=== PATIENT | male | born 1960 | race Caucasian/White ===

== ENCOUNTER → 2017-12-03 09:01 | Outpatient (CLI) | payer OTHER, SELFPAY ==
--- NOTE | 2017-12-03 09:05 | RAD_ITS ---
STUDY: X-RAY - LEFT FOOT CLINICAL: Male, 57 years old. Heel pain. TECHNIQUE: 3 view(s) of the foot. COMPARISON: None. FINDINGS: There is an enthesophyte involving the posterior superior calcaneus at the site of insertion of the Achilles tendon. There is a plantar calcaneal spur. Normal talus and remaining tarsal bones. Normal visualized subtalar, talonavicular, calcaneocuboid, tarsal and tarsometatarsal articulations. There is minor lateral periarticular spurring at the head of the first metatarsal. Normal second through fourth metatarsi. Mild degenerative cortical irregularity of the head of the fifth metatarsal, as well as small rounded degenerative periarticular calcifications of the fifth metatarsophalangeal joint. Normal metatarsophalangeal joint of the great toe. Normal tibial and fibular sesamoid bones. Normal interphalangeal joint of the great toe. Mild degenerative subcortical sclerosis at the base of the first proximal phalanx. Normal distal phalanx of the great toe. Normal second through fifth metatarsophalangeal joints. Normal interphalangeal joints and phalanges of the lesser toes. The soft tissue structures are unremarkable. There is no demonstrated osseous destructive lesion or fracture. RAD/Foot min 3 Views IMPRESSION: Degenerative changes of the left foot as noted. Electronically Signed: Jass Gomez MD at 19:51 EDT , Service support ,
== END ==
PROVIDERS: Family Provider Internal Medicine; PCP Internal Medicine; Visit Provider Internal Medicine
DX: M72.2 Plantar fascial fibromatosis (principal)
CPT/HCPCS: 73630

== ENCOUNTER → 2018-09-01 12:37 | Outpatient (CLI) | payer SELFPAY ==
[2015-08-22 16:21] VITALS: BMI 36.3
--- NOTE | 2018-07-15 16:09 | NURSING ---
PT DID NOT COME FOR HIS APPOINTMENT.
--- NOTE | 2018-09-01 12:44 | CT_ITS ---
STUDY: CT CHEST WITHOUT CONTRAST REASON FOR EXAM: Male, 58 years old. Elevated cholesterol RADIATION DOSAGE (If Supplied By Facility): CTDIvol = ( 12.19 ) mGy, DLP = ( 219.42 ) mGycm TECHNIQUE: Transaxial imaging was performed without the administration of intravenous contrast material. Individualized dose optimization techniques were used for this CT. COMPARISON: None. FINDINGS: TRACHEA, THYROID, ESOPHAGUS: No tracheomalacia,stricture or wall thickening. Thyroid and esophagus are normal CARDIOVASCULAR SYSTEM: The descending aorta is ectatic with a diameter of 5.3 cm. The descending thoracic aorta is normal with a diameter of 3.2 cm.. The pulmonary trunk and the left pulmonary arteries are also grossly within normal limits. The heart is not enlarged. The LAD is calcified with a Hounsfield unit of 238. The left circumflex is also heavily calcified with Hounsfield unit of 220. There are no vascular developmental anomalies. MEE AND LYMPH NODES: No hilar masses and no mediastinal, hilar, axillary or supraclavicular adenopathy LUNGS, LOW-ATTENUATION: No traction bronchiectasis, honeycombing,emphysema, lung cysts or cavitations LUNGS, HIGH ATTENUATION: A focal groundglass opacity in the right upper lobe. Early pneumonia is suspected. LUNGS, MOSAIC/CRAZY PAVING: Not evident PLEURA AND CHEST WALL: No plural effusions, pneumothoraces,rib fractures or any osteolytic/osteoblastic changes . The soft tissue chest wall including the breasts are normal UPPER ABDOMEN: Unremarkable . CT/Limited Chest CT w/CCTA IMPRESSION: Heavy calcification of the LAD (Hounsfield unit of 238) and left circumflex (Hounsfield unit of 220) I Agaston score not calculated. A focal area of groundglass opacities in the right upper lobe consistent with early pneumonia Electronically Signed: Yeison Chow MD at 3:47 EST Tel , Service support ,
[2018-09-01 13:10] VITALS: BP 119/70; PULSE 67; RESP 16; O2SAT 97; BMI 39.9
--- NOTE | 2018-09-01 17:15 | CA.SCORE ---
Calcium Scoring Date of Study:: 09/01/18 Coronary Calcium Scoring: Coronary calcium scoring. High-resolution computed tomographic imaging of the chest was performed on 09/01/2018 with particular attention paid to the coronary arteries. Images from the examination were analyzed for the presence and extent of coronary calcification using the coronary calcification quantification software. The patient tolerated the procedure well there were no complications. The results of the coronary calcification analysis are noted below. Coronary artery Left main score 321. Left anterior descending artery score 217. Left circumflex artery score 105. Right coronary artery score 289. Total Agagston score 933 The above score places the patient between the 75th and 90th percentile ranking for age-matched controls. The above is suggestive of extensive plaque burden with a high likelihood of at least one coronary stenosis more than 50% in diameter.
--- OUTSIDE RECORDS SUMMARY | 2018-12-04 03:02 | XMS RPT_ITS ---
:1960 Author Organization [facility] Care Team Providers Name Role Phone Fast DO, Goldie A Attending Unavailable Fast DO, Goldie A Referring Unavailable Fast DO, Goldie A Consulting Unavailable Fast, Goldie Attending Unavailable Fast, Goldie Referring Unavailable Fast, Goldie Primary Care Unavailable Fast, Goldei Attending Unavailable Fast, Goldie Referring Unavailable Fast, Goldie Primary Care Unavailable Zeb, [place] Attending Unavailable Fast, Goldie Referring Unavailable Fast, Goldie Primary Care Unavailable Fast, Goldie Consulting Unavailable Fast, Goldie Attending Unavailable Fast, Goldie Primary Care Unavailable PROBLEMS PROBLEMS No Problem Records FoundPROCEDURES PROCEDURES No Procedure Records FoundRESULTS RESULTS LIMITED CHEST CT Observed: 09/01/2018 Status: F Source: [place] W/CCTA 12:44 PM [facility] Imaging Services [address] [place] [address] w/CCTA MR#: [id number] Acct: [id number] Name: JONAH MAC Rep #: [id number] : 1960 M 58 From: Yeison Chow MD PCP: Goldie Kohler DO Status: REG CLI Study: Limited Chest CT w/CCTA Date of Exam: 09/01/18 Exam# [id number] Ordering Dr: Goldie Kohler DO STUDY: CT CHEST WITHOUT CONTRAST REASON FOR EXAM: Male, 58 years old. Elevated cholesterol RADIATION DOSAGE (If Supplied By Facility): CTDIvol = ( 12.19 ) mGy, DLP = ( 219.42 ) mGycm TECHNIQUE: Transaxial imaging was performed without the administration of intravenous contrast material. Individualized dose optimization techniques were used for this CT. COMPARISON: None. FINDINGS: TRACHEA, THYROID, ESOPHAGUS: No tracheomalacia,stricture or wall thickening. Thyroid and esophagus are normal CARDIOVASCULAR SYSTEM: The descending aorta is ectatic with a diameter of 5.3 cm. The descending thoracic aorta is normal with a diameter of 3.2 cm.. The pulmonary trunk and the left pulmonary arteries are also grossly within normal limits. The heart is not enlarged. The LAD is calcified with a Hounsfield unit of 238. The left circumflex is also heavily calcified with Hounsfield unit of 220. There are no vascular developmental anomalies. MEE AND LYMPH NODES: No hilar masses and no mediastinal, hilar, axillary or supraclavicular adenopathy LUNGS, LOW-ATTENUATION: No traction bronchiectasis, honeycombing,emphysema, lung cysts or cavitations LUNGS, HIGH ATTENUATION: A focal groundglass opacity in the right upper lobe. Early pneumonia is suspected. LUNGS, MOSAIC/CRAZY PAVING: Not evident PLEURA AND CHEST WALL: No plural effusions, pneumothoraces,rib fractures or any osteolytic/osteoblastic changes . The soft tissue chest wall including the breasts are normal UPPER ABDOMEN: Unremarkable . CT/Limited Chest CT w/CCTA IMPRESSION: Heavy calcification of the LAD (Hounsfield unit of 238) and left circumflex (Hounsfield unit of 220) I Agaston score not calculated. A focal area of groundglass opacities in the right upper lobe consistent with early pneumonia Electronically Signed: Yeison Chow MD at 3:47 EST Tel , Service support , CC: Goldie Kohler DO Nurse Ldr: Signed FOOT MIN 3 VIEWS Observed: 12/03/2017 Status: F Source: [place] 9:05 AM [facility] Imaging Services [address] [place] [address] Foot min 3 Views MR#: [id number] Acct: [id number] Name: JONAH MAC Rep #: [id number] : 1960 M 57 From: Addy Gomez MD PCP: Goldie Kohler DO Status: REG CLI Study: Foot min 3 Views Date of Exam: 12/03/17 Exam# [id number] Ordering Dr: Goldie Kohler DO STUDY: X-RAY - LEFT FOOT CLINICAL: Male, 57 years old. Heel pain. TECHNIQUE: 3 view(s) of the foot. COMPARISON: None. FINDINGS: There is an enthesophyte involving the posterior superior calcaneus at the site of insertion of the Achilles tendon. There is a plantar calcaneal spur. Normal talus and remaining tarsal bones. Normal visualized subtalar, talonavicular, calcaneocuboid, tarsal and tarsometatarsal articulations. There is minor lateral periarticular spurring at the head of the first metatarsal. Normal second through fourth metatarsi. Mild degenerative cortical irregularity of the head of the fifth metatarsal, as well as small rounded degenerative periarticular calcifications of the fifth metatarsophalangeal joint. Normal metatarsophalangeal joint of the great toe. Normal tibial and fibular sesamoid bones. Normal interphalangeal joint of the great toe. Mild degenerative subcortical sclerosis at the base of the first proximal phalanx. Normal distal phalanx of the great toe. Normal second through fifth metatarsophalangeal joints. Normal interphalangeal joints and phalanges of the lesser toes. The soft tissue structures are unremarkable. There is no demonstrated osseous destructive lesion or fracture. RAD/Foot min 3 Views IMPRESSION: Degenerative changes of the left foot as noted. Electronically Signed: Jass Gomez MD at 19:51 EDT , Service support , CC: Goldie Kohler DO Nurse Ldr: Signed ALLERGIES ALLERGIES DATE TYPE / CODE NAME / CODE REACTION SEVERITY SOURCE 08/04/2015 Drug Penicillins Anaphylaxis Unknown [facility] Allergy/4160 /[id number] Hospital 38408(SNOMED (RXNORM) Repository CT) ENCOUNTERS ENCOUNTERS ADMIT/DISCHARGE ACCOUNT ADMITTING ENCOUNTER LOCATION SOURCE NUMBER CLASS 10/02/2018 [id number] [facility] [address] [facility] ing:[facility] Repository 09/26/2018 [id number] Ambulatory Building:[facility] Repository 09/01/2018 [id number] Ambulatory BMSBuilding:B Greg 4 MS.CF.[facility] Repository 09/01/2018 [id number] [facility] [address] [facility] ing:CT Repository 12/03/2017 [id number] Ambulatory [place] Greg [address] [facility] ing:[facility]PRAD Repository PAYERS PAYERS ENCOUNTER GUARANTOR PAYER SUBSCRIBER SOURCE 10/02/2018 JONAH [id number] Primary JONAH KIRBYOB: Greg [address] Insurance:MEDICAL [id number] Community [address] [place] [address]Eck: (330) Number: Repository [phone] () [id number] Date:1608-49-85[address], [place] [address]GB: 10/02/2018 Secondary NOT GIVENUNK Greg Insurance:SELF PAY [facility] Number: Effective Repository Date:2018-09-26 09/26/2018 JONAH KIRBYOB: Primary JONAH KIRBYOB: [facility] Practices [id number] Box Insurance:Medical [id number] [facility]ository [facility] [address], [address]Bto: (330) Number: [place] [address]Lkv: [phone] [id number] (HP)Tel: (330) Date:3755-28-34Yvjg (HP) [phone] (WP) Name:[address], [place] [id number]: 09/26/2018 Secondary JONAH KIRBYOB: [facility] Practices Insurance:ReferralsPo [id number] Repository licy Number: [id number], Effective Date: - [place] [address]Jwd: [id number] Name:F (HP) 09/26/2018 Tertiary JONAH KIRBYOB: [facility] Practices Insurance:[place] [id number] Repository BC/BSPolicy Number: [address], [id number] [place] [address]Ehv: Date:2005-07-17 - 2022-53-78Xply (HP) Name:[address], [place] [id number]: 09/26/2018 Tertiary JONAH JAMAEDOB: [facility] Practices Insurance:[place] [id number] Repository CarePolicy Number: [address], [id number] [place] [address]Oiw: Date: - 6380-38-69Kpnn (HP) Name:[address] [address]AA: 09/26/2018 Tertiary JONAH JAMAEDOB: [facility] Practices Insurance:[facility] [id number] [facility]ository [facility] [address] [place] [address], Number: [place] [id number]: [id number] Date: - () [id number] Name:FPO [address] [place] [address]CF: 09/01/2018 JONAH [id number] Primary Insurance:[facility] JONAH JAMAEDOB: [place] [address] PACKAGE PLANPolicy [id number] Number: [facility] [address]Trx: 330 [id number] Repository [phone] (HP) Date:2018-06-20 09/01/2018 Secondary NOT GIVENUNK [place] Insurance:SELF PAY [facility] Number: Effective Repository Date:2018-09-01 09/01/2018 JONAH [id number] Primary Insurance:[facility] JONAH JAMAEDOB: [place] [address] PACKAGE PLANPolicy [id number] Number: [facility] [id number]: 330 [id number] Repository [phone] () Date:2018-06-20 09/01/2018 Secondary NOT GIVENUNK [place] Insurance:SELF PAY [facility] Number: Effective Repository Date:2018-06-20 12/03/2017 Jonah [id number] Primary Jonah KirbyOB: [place] [address] Insurance:[employer] [id number] [address]Policy Number: Hospital [id number]: [id number] Repository [phone] Date:[id number] (HP) [place] [address]AT: 12/03/2017 Secondary NOT GIVENUNK [place] Insurance:SELF PAY Community [facility] Number: Effective Repository Date:2017-12-03
== END ==
PROVIDERS: Family Provider Internal Medicine; PCP Internal Medicine; Referring Provider Internal Medicine; Visit Provider Internal Medicine
DX: E78.00 Pure hypercholesterolemia, unspecified (principal)
CPT/HCPCS: 75571; 76380

== ENCOUNTER → 2018-12-04 08:12 | Outpatient (CLI) | payer OTHER, SELFPAY ==
[2018-09-01 13:10] VITALS: BMI 39.9
--- NOTE | 2018-12-04 08:18 | CT_ITS ---
STUDY: CT CHEST WITH CONTRAST REASON FOR EXAM: Male, 58 years old. RADIATION DOSAGE (If Supplied By Facility): CTDIvol = ( 19.11 ) mGy, DLP = ( 686.61 ) mGycm TECHNIQUE: Transaxial imaging was performed following intravenous administration of Isovue 300 100CC IV. Individualized dose optimization techniques were used for this CT. COMPARISON: None. FINDINGS: The lungs are normal. The previously described opacity in the right upper lobe is no longer seen most likely represented pneumonia that has resolved. There is no demonstrated pleural abnormality. Normal heart and pericardium. Normal mediastinum. Normal hilar regions. Normal enhanced pulmonary arteries. There is aneurysmal dilation of the ascending aorta measures 4.9 cm is unchanged since the previous study. There are multi-level degenerative changes of the thoracic spine. There is no demonstrated abnormality of the visualized upper abdomen. CT/Chest WITH Contrast IMPRESSION: Resolved right upper lobe pneumonia. There is aneurysmal dilation of the ascending aorta measures 4.9 cm is unchanged since the previous study. Electronically Signed: Pearl Chavez, at 9:21 EDT Tel , Service support ,
[2018-12-04 08:30] LABS: CREATININE FINGERSTICK 1.1 mg/dL (0.70-1.30); EGFR FINGERSTICK > 60.0000 mL/min (>60)
== END ==
PROVIDERS: Family Provider Internal Medicine; PCP Internal Medicine; Referring Provider Internal Medicine; Visit Provider Internal Medicine
DX: R91.8 Other nonspecific abnormal finding of lung field (principal)
CPT/HCPCS: 71260; Q9967

== ENCOUNTER → 2019-04-20 | Outpatient (CLI) | payer SELFPAY ==
[2018-09-01 13:10] VITALS: BMI 39.9
--- NOTE | 2019-04-20 15:49 | CT_ITS ---
STUDY: CTA CHEST WITH CONTRAST REASON FOR EXAM: Male, 59 years old. Thoracic aortic aneurysm without rupture RADIATION DOSAGE (If Supplied By Facility): CTDIvol = ( 18.19 ) mGy, DLP = ( 788.40 ) mGycm TECHNIQUE: Transaxial imaging was performed following intravenous administration of 100 IV Isovue 300. Individualized dose optimization techniques were used for this CT. COMPARISON: 04 December 2018, 01 September 2018 FINDINGS: Examination is not EKG gated. Oblique short axis aortic luminal images were not provided. Therefore, both the current and prior measurement of the aorta is a mild overestimate by approximately 2-3 mm. Aortic root measures 4.8 cm. Ascending aorta measures 4.3 cm Aortic arch measures 3.2 cm. Proximal descending aorta measures 3.2 cm. Distal descending aorta measures 3 cm. All values are unchanged since 3 months prior. Ascending and aortic root are stable since August 2018 noncontrast examination. Lungs are clear. Airways are patent. Pleural surfaces are normal. Mediastinal contents are normal. There is moderate coronary artery disease. Cardiac chamber is normal in size and shape. Pericardium is normal. The liver is fatty infiltrated. There is upper abdominal intraperitoneal and retroperitoneal lipomatosis. This is a benign metabolically adverse condition associated with accelerated atherosclerosis and hyperglycemic state. No further imaging is necessary for this condition. CT/Chest WITH Contrast IMPRESSION: 1. Stable aorta with maximum diameter of 4.8 cm. 2. At least moderate coronary artery disease. 3. Intra-abdominal lipomatosis. Endocrinology referral is advised. Electronically Signed: Saimajuan david Ezio, at 16:24 EDT Tel , Service support ,
[2019-04-20 16:01] LABS: CREATININE FINGERSTICK 0.8 mg/dL (0.70-1.30)
== END | disposition home or self-care (01) ==
PROVIDERS: Family Provider Internal Medicine; PCP Internal Medicine; Referring Provider Internal Medicine; Visit Provider Internal Medicine
DX: I71.2 Thoracic aortic aneurysm, without rupture (principal)
CPT/HCPCS: 71260; Q9967

== ENCOUNTER → 2019-05-13 | Outpatient (CLI) | payer OTHER, SELFPAY ==
[2018-09-01 13:10] VITALS: BMI 39.9
--- NOTE | 2019-05-13 12:55 | ECHOD_ITS ---
Reason For Study: THORACIC AORTIC ANEURYSM Procedure This was a 2D Doppler, Color Flow transthoracic echocardiogram. Exam performed in department. Left Ventricle Normal size and thickness. The estimated ejection fraction is 65 %. Stage 1 diastolic dysfunction. No regional wall motion abnormalities noted. Right Ventricle Normal size and thickness. Normal systolic function. Atria Normal left atrium. Normal right atrium. Normal atrial septum. Mitral Valve The mitral valve is structurally normal. No prolapse or stenosis seen. Tricuspid Valve Normal tricuspid valve. Trivial tricuspid valve insufficiency. Unable to estimate RV systolic pressure due to insufficient tricuspid regurgitant envelope. Aortic Valve Trisinus/trileaflet aortic valve. Mild focal aortic valve thickening. Trivial aortic valve insufficiency. Pulmonic Valve Normal pulmonic valve. Great Vessels Moderately dilated aortic root. Normal arch. Normal inferior vena cava. Inferior vena cava collapse with sniff. Pericardium/Pleural No pericardial effusion. MMode/2D Measurements & Calculations LVIDd: 4.9 cm IVSd: 1.1 cm Ao root diam: 4.5 cm LVIDs: 3.3 cm LVPWd: 1.0 cm RVDd: 3.4 cm FS: 33.8 % LAV(MOD-bp): 62.9 ml LA A4 area: 21.6 cm2 LA dimension(2D): 3.9 cm LAV(MOD-bp) Indexed: 26.9 ml/m2 LAV(MOD-sp2): 61.4 ml LAV(MOD-sp4): 61.1 ml RA A4 area: 18.5 cm2 Time Measurements MV dec time: 0.23 sec Doppler Measurements & Calculations MV E max james: 73.5 cm/sec Lat Peak E' James: 9.1 cm/sec Med Peak E' James: 8.5 cm/sec MV A max james: 89.7 cm/sec E/E' lat: 8.0 E/E' med: 8.6 MV E/A: 0.82 Ao V2 max: 152.9 cm/sec LV V1 max: 120.6 cm/sec PA V2 max: 74.6 cm/sec Ao max P.3 mmHg LV V1 max P.8 mmHg Interpretation Summary The estimated ejection fraction is 65 %. Stage 1 diastolic dysfunction. Trivial tricuspid valve insufficiency. Unable to estimate RV systolic pressure due to insufficient tricuspid regurgitant envelope. Trivial aortic valve insufficiency. Moderately dilated aortic root at 4.5 cm There is no comparison study available. Ordering Physician: Goldie Kohler Referring Physician: Goldie Kohler Performed By: Ana Veliz, RITCHIE, RVT
== END | disposition home or self-care (01) ==
LOC: CVS 12:50
PROVIDERS: Family Provider Internal Medicine; PCP Internal Medicine; Referring Provider Internal Medicine; Visit Provider Internal Medicine
DX: I71.2 Thoracic aortic aneurysm, without rupture (principal)
CPT/HCPCS: 93306

== ENCOUNTER → 2019-10-06 09:16 | Outpatient (CLI) | payer OTHER, SELFPAY ==
[2018-09-01 13:10] VITALS: BMI 39.9
--- NOTE | 2019-10-06 09:27 | RAD_ITS ---
HISTORY: LOW BACK PAIN. HX DDD TECHNIQUE: Lumbar spine 4 views Number of images including paperwork: 4 COMPARISON: 11/21/2009 FINDINGS: VERTEBRAE: No acute fracture. VERTEBRAL ALIGNMENT: No traumatic subluxation. DISKS AND JOINTS: Mild multilevel discogenic degenerative changes, mildly increased particularly at T12-L1. Facet arthropathy. SOFT TISSUES: Unremarkable paraspinous soft tissues. RAD/L/S Spine Min 4 Views IMPRESSION: No acute abnormality. Lumbar spondylosis, mildly increased. at 0540 Reported and signed by: Elmira Goodwin MD Electronically Signed: Elmira Goodwin MD at 5:40 EST Tel , Service support ,
--- NOTE | 2019-10-06 09:27 | RAD_ITS ---
HISTORY: CHRONIC PAIN ADDITIONAL HISTORY: None provided. TECHNIQUE: Left knee 4 days Number of images including paperwork: 4 COMPARISON: 03/05/2014 FINDINGS: BONES: No acute fracture. JOINTS: No subluxation. Mild to moderate tricompartmental degenerative changes. SOFT TISSUES: No distinct foreign body. Soft tissue swelling anteriorly. RAD/Knee 4 or More Views IMPRESSION: Degenerative changes without acute osseous abnormality. Soft tissue swelling anteriorly. at 0542 Reported and signed by: Elmira Goodwin MD Electronically Signed: Elmira Goodwin MD at 5:42 EST Tel , Service support ,
== END ==
PROVIDERS: PCP Internal Medicine; Referring Provider Internal Medicine; Visit Provider Internal Medicine
DX: M54.5 Low back pain (principal); M25.562 Pain in left knee
CPT/HCPCS: 72110; 73564

== ENCOUNTER 2019-11-05 10:30 | Outpatient (RCR) | payer OTHER, SELFPAY ==
[2018-09-01 13:10] VITALS: BMI 39.9
--- NOTE | 2019-10-13 08:52 | HP.PTEVAL_ITS ---
Patient's Visit Information NITISH MAC is a 59 year old M referred to Physical Therapy by Goldie Kohler DO with a diagnosis of L knee pain, LBP. Date of Evaluation: 10/07/19 Physical Therapist: Mitch Cagle DPT - Visit Plan Frequency: 1-2x /Week Duration: 4-6 Weeks Plan: Start with light lumbar extension. Progress with LLE strengthening and core stability exercises. Once ready progress gym exercises as patient desires to get back into gym routine. - Subjective Findings: Pt. is here today for his initial evaluation with diagnosis of LBP and L knee pain. Pt. reports having OA in L knee with moderate degeneration. Pt. reports his L knee has been getting progressively worse of the past few years. Increased pain with squating, stairs, gettign up from sitting for longer periods of time. Pt. also describes having increased LBP, no raidation of symptoms. Increased pain after working, mostly sitting on heavy machinery. Pt. reports increased pain once initially rising and attempting to walke, but alleviates after increased walking. Pt. has previously gone to a chiropractor for his back, but recently has not tarun as helpful. Pt. is hopeful to reduce his symptoms in order to get back to all recreational (working out) and work activities without limitations. - Pain Lknee Pain Intensity (Out of 10): 2 Pain Intensity Range: 0, 6 Lumbar spine Pain Intensity (Out of 10): 3 Pain Intensity Range: 0, 6 - Objective POSTURE: Pt. has sway back posture with anterior pelvic tilt. Pt. has normal knee positoning bilaterally. PALPATION: Pt. has slight tenderness at long medial joint line of L knee. Pt. has tenderness along lumbar paraspinals, but minimally. No pain with palpation of either posterior LEs. NEURO: normal sensation and DTR of bilateral LEs. ROM: LUMBAR SPINE: flexion- min loss increase NW, extension mod loss- mild reduction in symptoms no better, SB nil loss NE, rotation min loss bilat NE. L knee 0-0-128deg. MMT: LLE 5/5 throughout, except hip ext 4/5, abd hip abd 4/5; core- poor+. GAIT: Pt. has slight flexed posture with gait, increased pain with initial waking, increased lateral hip translation. Pt. has incraesed valgus positoning of L knee during stance phase. STAIRS: Pt. has reciprocal pattern with use of 1 HR, mild inc rease in L knee with controlled eccentric lowering. - Special Tests L/S Slump test left side: Negative L/S Slump test right side: Negative L/S Left Straight Leg Raise: Negative L/S Right Straight Leg Raise: Negative L/S Instability PA Test: Negative L/S [place] Instability Test: Negative Lumbar Standing: Flexion - Mechanical Response: No effect Lumbar Standing: Flexion - Symptoms During Testing: Increases Lumbar Standing: Flexion - Symptoms After Testing: No worse Lumbar Standing: Extension - Mechanical Response: No effect Lumbar Standing: Extension - Symptoms During Testing: Decreases Lumbar Standing: Extension - Symptoms After Testing: No better Lumbar Standing: Right Side [place] - Mechanical Response: No effect Lumbar Standing: Right Side [place] - Symptoms During Testing: No effect Lumbar Standing: Right Side [place] - Symptoms After Testing: No effect Lumbar Standing: Left Side [place] - Mechanical Response: No effect Lumbar Standing: Left Side [place] - Symptoms During Testing: No effect Lumbar Standing: Left Side [place] - Symptoms After Testing: No effect Lumbar Lying: Flexion - Mechanical Response: No effect Lumbar Lying: Flexion - Symptoms During Testing: No effect Lumbar Lying: Flexion - Symptoms After Testing: No effect Lumbar Lying: Extension - Mechanical Response: No effect Lumbar Lying: Extension - Symptoms During Testing: Decreases Lumbar Lying: Extension - Symptoms After Testing: No better - Goals Goal 1:: LTG: pt to be I with HEP for LLE and core strengthening. Goal Time Frame: 4-6 Weeks Goal 2:: STG: Pt. to have 0-2/10 pain in L knee and lumbar spine with all walking. Goal Time Frame: 2-4 Weeks Goal 3:: LTG: Pt. to have increased LLE and core strength increased by 1/2 grade of all effected musculature. Goal Time Frame: 4-6 Weeks Goal 4:: STG: Pt. to have increased lumbar ROM by 25% in all directions without increase in symptoms. Goal Time Frame: 2-4 Weeks Goal 5:: LTG: Pt. to resume all gym exercises without increase in symptoms. Goal Time Frame: 4-6 Weeks - Rehabilitation Potential Physical Therapy Diagnosis: Pt. has signs and symptoms consistent with LBP and L knee pain. Pt. did not have radicular symptoms, but has signs of degenerative changes of both lumbar spine and L knee. Pt. did have slight positive signs with extension of lumbar spine, but would have the greatest effect with both strengthening of his core and LLE. Rehabilitation Potential: Good - Anticipated Interventions Patient/Client Instruction: Educate patient on: Condition, Plan of Care, Risk Factors, Benefits of Fitness Program For the Purpose of:: To improve decision making, To facilitate caregiver knowledge, To improve self management, To prevent re-injury, To improve ability to perform tasks related to life management, To improve tolerance to ADL's Therapeutic Exercise to Include: Strength training, Power training, Body mechanics, Postural training, Flexibilty training, Gait and locomotor training, Passive ROM, Active ROM, Dynamic Lumbar Stabilization, Daniel Exercises For the Purpose of:: To decrease pain, To increase ROM, To improve nutrient delivery to tissue, To increase oxygenation perfusion, To improve muscle performance and motor function, To improve gait and locomotor functions, To improve health of tissue, To decrease soft tissue restriction, To increase flexibility/ROM Thank you for the opportunity to evaluate your patient. For Medicare and Medicare HMO plans, please review the plan of care and approve it. It will need to be FAXED BACK to us at [phone] for Medicare purposes. For Medicare only, by signing this I certify the plan of care. Please let me know if there are questions or concerns regarding this plan of care. Physician Sign ature: Date:
--- NOTE | 2019-11-03 12:39 | HP.PTREVAL ---
Goldie Kohler, DO, It has been my pleasure to treat NITISH MAC over the last 5 visits for L knee pain, LBP. Please see the progress note below for an update on the physical therapy plan of care! Subjective: Pt. reports my back has been doing well, just a little stiff. Pt. reprots that his knee has been feeling a bit better after having stem cell injections. Pt. reports doing well at work, but still has some pain with twisting or stepping wrong on his knee Objective/Function: Pt. is doing well with lumbar extension. He is doing well with LLE strengthening as well. Pt. has good ROM of knee knee pain at ~125deg of flexion, no pain with extension. Tight HS, but improving. Pt. is walking very well. I would like him to continue with strengthening adn stability of his knee and hip to reduce valgus and twisting on his knee. Plan Plan: Pt. is doing well, but has some LLE weakness, most notably with quad and glutes (max and med). I would like to continue to focus on these muscle groups as able. Goals Goal 1:: LTG: pt to be I with HEP for LLE and core strengthening. Goal Time Frame: 4-6 Weeks Goal 2:: STG: Pt. to have 0-2/10 pain in L knee and lumbar spine with all walking. Goal Time Frame: 2-4 Weeks Goal Progress: Progressing Goal 3:: LTG: Pt. to have increased LLE and core strength increased by 1/2 grade of all effected musculature. Goal Time Frame: 4-6 Weeks Goal Progress: Progressing Goal 4:: STG: Pt. to have increased lumbar ROM by 25% in all directions without increase in symptoms. Goal Time Frame: 2-4 Weeks Goal Progress: Progressing Goal 5:: LTG: Pt. to resume all gym exercises without increase in symptoms. Goal Time Frame: 4-6 Weeks Goal Progress: Progressing Anticipated Interventions Patient/Client Instruction: Educate patient on: Condition, Plan of Care, Risk Factors, Benefits of Fitness Program For the Purpose of:: To improve decision making, To facilitate caregiver knowledge, To improve self management, To prevent re-injury, To improve ability to perform tasks related to life management, To improve tolerance to ADL's Therapeutic Exercise to Include: Strength training, Power training, Body mechanics, Postural training, Flexibilty training, Gait and locomotor training, Passive ROM, Active ROM, Dynamic Lumbar Stabilization, Daniel Exercises For the Purpose of:: To decrease pain, To increase ROM, To improve nutrient delivery to tissue, To increase oxygenation perfusion, To improve muscle performance and motor function, To improve gait and locomotor functions, To improve health of tissue, To decrease soft tissue restriction, To increase flexibility/ROM Please do not hesitate to contact me at [phone] by phone or if you have questions or concerns regarding this new plan of care! Sincerely, CACHORRO CruzT
--- NOTE | 2020-03-15 11:29 | HP.PT.NRP ---
NITISH MAC was seen in my office for initial evaluation on 10/07/19. The following Plan of Care was established for this patient: Initial Frequency: 1-2x /Week Initial Duration: 4-6 Weeks Patient/Client Instruction: Educate patient on: Condition, Plan of Care, Risk Factors, Benefits of Fitness Program For the Purpose of:: To improve decision making, To facilitate caregiver knowledge, To improve self management, To prevent re-injury, To improve ability to perform tasks related to life management, To improve tolerance to ADL's Therapeutic Exercise to Include: Strength training, Power training, Body mechanics, Postural training, Flexibilty training, Gait and locomotor training, Passive ROM, Active ROM, Dynamic Lumbar Stabilization, Daniel Exercises For the Purpose of:: To decrease pain, To increase ROM, To improve nutrient delivery to tissue, To increase oxygenation perfusion, To improve muscle performance and motor function, To improve gait and locomotor functions, To improve health of tissue, To decrease soft tissue restriction, To increase flexibility/ROM This patient was last seen in our office 11/03/19. Pertinent comments regarding their Physical therapy will appear below: Pt. has not been seen in several weeks and is appropirate from [place] at this point in time. At this point I will be discontinuing this patient from physical therapy. I would be happy to see this patient again in the future if found appropriate by the physician. Thank you! Mitch Cagle DPT
== END 2019-11-05 19:00 | disposition home or self-care (01) ==
LOC: PT 10:30
PROVIDERS: PCP Internal Medicine; Referring Provider Internal Medicine; Visit Provider Internal Medicine
DX: M54.5 Low back pain (principal); M25.562 Pain in left knee
CPT/HCPCS: 97110; 97162

== ENCOUNTER → 2019-11-11 12:23 | Outpatient (CLI) | payer OTHER, SELFPAY ==
[2018-09-01 13:10] VITALS: BMI 39.9
--- NOTE | 2019-11-11 13:09 | CT_ITS ---
STUDY: CT ABDOMEN AND PELVIS WITHOUT CONTRAST REASON FOR EXAM: Male, 59 years old. HEMATURIA, LT SIDED MID BACK PAIN X 1 YR. RADIATION DOSAGE (If Supplied By Facility): CTDIvol = ( 20.94 ) mGy, DLP = ( 1182.29 ) mGycm TECHNIQUE: Transaxial images were obtained from the dome of the diaphragm to the symphysis pubis without oral contrast, and without intravenous contrast. Sagittal and coronal images were reconstructed. Individualized dose optimization techniques were used for this CT. COMPARISON: None. FINDINGS: The visualized lung bases are unremarkable. The visualized portions of the heart are within normal limits. Normal liver. Normal gallbladder and extrahepatic biliary system. Normal spleen. Normal pancreas. Normal bilateral adrenal glands. Normal right kidney. Normal left kidney. There is an exophytic right lower pole renal cyst measuring 3 cm. Normal visualized stomach. Normal small intestine. Normal colon. The appendix is visualized and appears normal. Normal abdominal aorta. Normal inferior vena cava. Normal retroperitoneum. Normal urinary bladder. Normal visualized prostate gland. Small bilateral inguinal hernias. There are diffuse degenerative changes of the visualized lumbar spine. CT/Abdomen/Pelvis without Cont IMPRESSION: No acute process is identified. No renal stones or evidence for obstructive uropathy. Electronically Signed: Aquiles Solitario, at 15:51 EST Tel , Service support ,
== END ==
PROVIDERS: PCP Internal Medicine; Referring Provider Internal Medicine; Visit Provider Internal Medicine
DX: R31.9 Hematuria, unspecified (principal); M54.5 Low back pain
CPT/HCPCS: 74176

== ENCOUNTER → 2019-11-18 14:07 | Outpatient (CLI) | payer OTHER, SELFPAY ==
[2018-09-01 13:10] VITALS: BMI 39.9
--- NOTE | 2019-11-18 14:20 | MRI_ITS ---
STUDY: MRI LUMBAR SPINE WITHOUT CONTRAST REASON FOR EXAM: Male, 59 years old. low back pain TECHNIQUE: Standardized fat and water weighted pulse sequences were obtained in the sagittal and axial planes. COMPARISON: X-ray 10/06/2019 FINDINGS: T12-L1: Normal endplates. Normal disc height, hydration and morphology. Normal bilateral facet joints. Normal central canal and bilateral lateral recesses. Normal bilateral intervertebral neural foramina. Normal lumbar lordosis. There is no substantial scoliosis. Normal conus medullaris that terminates at the L1. Slitlike appearance of the neural foramina are suggestive of congenital spinal stenosis (short pedicles). Acute microfracture stress reaction of the pedicles of L5. L1-2: Mild bilobed disc protrusion produces mild spinal stenosis and mild bilateral neural foraminal stenosis. L2-3: Mild bilateral facet hypertrophy and ligament flavum hypertrophy. Mild bilobed disc protrusion produces mild spinal stenosis and mild bilateral neural foraminal stenosis. L3-4: Mild bilateral facet hypertrophy and ligament flavum hypertrophy. Mild bilobed disc protrusion produces mild spinal stenosis and mild bilateral neural foraminal stenosis. L4-5: Moderate bilateral facet hypertrophy with fluid in the facet joints consistent with instability moderate ligament flavum hypertrophy. Mild broad disc protrusion produces moderate spinal stenosis with mild bilateral lateral recess stenosis and mild bilateral neural foraminal stenosis. L5-S1: Moderate bilateral facet hypertrophy. No spinal stenosis or neural foraminal stenosis. Normal visualized sacral ala. Normal visualized paraspinous soft tissue structures. MRI/Spine Lumbar (Routine) IMPRESSION: 1. Acute microtrabecular stress reaction of the pedicles of L5. 2. 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 Electronically Signed: Leeroy Diaz MD at 17:37 EST Tel , Service support ,
== END ==
PROVIDERS: PCP Internal Medicine; Referring Provider Internal Medicine; Visit Provider Internal Medicine
DX: M54.5 Low back pain (principal); R31.9 Hematuria, unspecified
CPT/HCPCS: 72148

== ENCOUNTER → 2019-11-25 13:32 | Outpatient (CLI) | payer OTHER, SELFPAY ==
[2018-09-01 13:10] VITALS: BMI 39.9
--- NOTE | 2019-11-25 13:38 | CT_ITS ---
STUDY: CT ABDOMEN AND PELVIS WITHOUT CONTRAST REASON FOR EXAM: Male, 59 years old. Hematuria, left mid back pain x 1 year, hx kidney stones. RADIATION DOSAGE (If Supplied By Facility): CTDIvol = ( 25.36 ) mGy, DLP = ( 1384.84 ) mGycm TECHNIQUE: Transaxial images were obtained from the dome of the diaphragm to the symphysis pubis without oral contrast, and without intravenous contrast. Sagittal and coronal images were reconstructed. Individualized dose optimization techniques were used for this CT. COMPARISON: None. FINDINGS: The visualized lung bases are unremarkable. The visualized portions of the heart are within normal limits. Normal liver. Normal gallbladder and extrahepatic biliary system. Normal spleen. Normal pancreas. Normal bilateral adrenal glands. Stable 2.4 cm cyst in the lower pole of the right kidney. Normal left kidney. Retroaortic left renal vein. There is a small hiatal hernia. Normal small intestine. There are multiple colonic diverticula consistent with diverticulosis. The appendix is visualized and appears normal. There is scattered atherosclerotic calcification of the abdominal aorta, without a demonstrated aneurysm. Normal inferior vena cava. There is borderline retroperitoneal lymphadenopathy with enlarged nodes no greater than 10mm in the short axis diameter. Normal urinary bladder. There is a small umbilical hernia containing fat. There are mild degenerative changes of the visualized lumbar spine. CT/Abdomen/Pelvis W IV Cont ONLY IMPRESSION: No acute abnormality is seen. Stable 2.4 cm cyst in the lower pole of the right kidney. Electronically Signed: Ulisses Bowers, at 14:20 EDT , Service support ,
[2019-11-25 13:55] LABS: CREATININE FINGERSTICK 0.8 mg/dL (0.70-1.30); EGFR FINGERSTICK > 60.0000 mL/min (>60)
== END ==
PROVIDERS: PCP Internal Medicine; Referring Provider Internal Medicine; Visit Provider Internal Medicine
DX: R31.9 Hematuria, unspecified (principal)
CPT/HCPCS: 74177; Q9967

== ENCOUNTER 2020-02-06 15:05 | Emergency (ER) | payer OTHER, SELFPAY ==
[2018-09-01 13:10] VITALS: BMI 39.9
[2020-02-06 15:06] VITALS: BP 125/75; PULSE 62; RESP 16; TEMP 36.3; O2SAT 96; BMI 39.9
--- NOTE | 2020-02-06 15:21 | ED.VIS.LOWEX ---
History of Present Illness Chief Complaint: Lower Extremity Injury Informant: Patient Occurred: Today - JPTA Mechanism/Context: Injury Context: Sudden Onset Timing: Continuous Quality of Pain: - - sore Location: L great toe only Current Severity: Gone Maximum Severity: Mild Associated Symptoms: Parasthesia - L great toe chronically, incompletely numb. Negative for: Loss of Funtion Narrative: Patient states he was moving a tractor with a front fats and oils loader on it, he went to get something out of it and it dropped down onto his toe, sustaining an injury to it. No other injuries. Tetanus Immunization: <5 years - Past Medical History (1) Hyperlipidemia Status: Chronic Past Medical History - Allergies and Home Meds Allergies/Adverse Reactions: Allergies Penicillins Allergy (Verified 02/06/20 15:06) Anaphylaxis hydromorphone [From Dilaudid] Adverse Reaction (Verified 02/06/20 15:06) PT UNSURE OF REACTION Primary Care Physician: Goldie Kohler DO [Primary Care Provider] - Surgical History: - - Left foot remotely Smoking Status: Never smoker Review of Systems Musculoskeletal: Reports: Extremity Pain Skin: Reports: Wounds Neurological: Reports: Parasthesia - Chronic, unchanged. Denies: Weakness Physical Exam Vital Signs/Narrative: Vital Signs Temp Pulse Resp BP Pulse Ox 02/06/20 15:06 97.3 F L 62 16 125/75 H 96 Inital Vital Signs reviewed: Yes - Extremity Exam Left Foot: - - Left great toe laceration to the nailbed and into the peroneal aspect of the toe, does not involve the plantar aspect of it. Nail is gone, avulsed, and not present in the wrapping patient has from home. Cuticle appears intact. No toe deformities. Minimal tenderness. Nontender throughout the rest of the foot and toes.. Negative for: Limited ROM General: Well nourished, Well developed, - - No acute distress Head: Normocephalic, Atraumatic Skin: Normal color, No rash, Trauma - Laceration to the dorsum of the left great toe including the nailbed approximately 3 cm, stellate. Clean-appearing, no contamination. Neurological: Alert, Oriented x3, Cranial nerves II-XII grossly intact, Normal Strength, Parasthesia - Left great toe distally Psychological: Normal affect, Normal Mood Diagnostic/Tx/Re-eval Clinical Impression(s) from Imaging Studies Toe X-Ray 02/06/20 15:35 IMPRESSION: Tiny chip tuft fracture of the first distal phalanx. Mild arthritic changes of the first metatarsophalangeal joint. Electronically Signed: Davon Hunter MD at 16:10 EDT , Service support , - Medical Decision Making X-ray shows a tuft fracture. I repaired the nailbed, under sterile conditions and stented open the root with some Xeroform gauze. The area was dressed with a bulky dressing. He will follow-up with podiatry. On prophylactic antibiotics which were prescribed as well. Procedures - Lacerations L great toe Length: 3 cm Depth: Sub Q Shape: Stellate Prep: Sterile Conditions, Chlorhexadine Laceration repair: Irrigated, Lidocaine with epi - topically only, Local, Skin sutures Number of Sutures/[place]: 5 Suture Information: Ethilon, Simple, 4-0 Comment: Iodoform gauze cut to size and inserted within the cuticle, laid over the nailbed that was repaired ED Disposition - Plan for ED Patient: Disposition: Home or Assisted Living Diagnosis: Open fracture of great toe of left foot, Nail avulsion of toe, Nailbed laceration, toe Instructions: ED Fx Toe Open, ED Laceration Foot, ED AVULSION Nail Complete Prescriptions: Cephalexin [Keflex] 500 mg PO TID #21 cap Prescription Printed Referrals: Goldie Kohler DO [Primary Care Provider] - Cesar Wilcox DPM [STAFF PHYSICIAN] - (or Dr. Macias, after the weekend when able -- call for appt)
--- NOTE | 2020-02-06 15:35 | RAD_ITS ---
STUDY: X-RAY LEFT FOOT, FIRST TOE REASON FOR EXAM: Male, 59 years old. PT PRESENTS WITH LEFT GREAT TOE INJURY. SMASH INJURY FROM EQUIPMENT, TECHNIQUE: 3 view(s) of the toe were obtained. COMPARISON: None. FINDINGS: Normal visualized metatarsus. There is arthrosis of the metatarsophalangeal (M.T.P.) joint. Normal interphalangeal joints. There is a tiny chip fracture of the tip of the tuft of the first distal phalanx. The soft tissue structures are unremarkable. RAD/Toe(s) Min 2 Views IMPRESSION: Tiny chip tuft fracture of the first distal phalanx. Mild arthritic changes of the first metatarsophalangeal joint. Electronically Signed: Davon Hunter MD at 16:10 EDT , Service support ,
[2020-02-06] MEDS: Lidocaine/Epi/Tetracaine 50 ML 1 APPLIC TOPICAL (15:43)
[2020-02-06 19:08] VITALS: RESP 18
== END 2020-02-06 19:10 | disposition home or self-care (01) ==
PROVIDERS: Emergency Provider Emergency Medicine; PCP Internal Medicine
DX: S92.402A Displaced unspecified fracture of left great toe, initial encounter for closed fracture (principal); S91.202A Unspecified open wound of left great toe with damage to nail, initial encounter; X58.XXXA Exposure to other specified factors, initial encounter
CPT/HCPCS: 12002; 73660; 99283

== ENCOUNTER 2020-02-24 05:01 | Emergency (ER) | payer OTHER, SELFPAY ==
[2020-02-24 05:02] VITALS: BP 157/81; PULSE 62; RESP 18; TEMP 36.8; O2SAT 97; BMI 39.8
--- NOTE | 2020-02-24 05:05 | CT_ITS ---
STUDY: CT ABDOMEN AND PELVIS WITHOUT CONTRAST REASON FOR EXAM: Male, 59 years old. Right flank pain, hx ks, aaa, fatty liver per pt RADIATION DOSAGE (If Supplied By Facility): CTDIvol = ( 20.11 ) mGy, DLP = ( 1075.31 ) mGycm TECHNIQUE: Transaxial 2.5 mm images were obtained from the dome of the diaphragm to the symphysis pubis without oral contrast, and without intravenous contrast. Sagittal and coronal images were reconstructed. This examination is limited for the evaluation of gastrointestinal, solid organs and vascular structures due to the lack of intravenous and oral contrast. Individualized dose optimization techniques were used for this CT. COMPARISON: CT abdomen pelvis 11/25/2019. 11/11/2019. FINDINGS: The visualized lung bases are unremarkable. There is cardiac enlargement. Normal liver. The gallbladder is contracted. Normal spleen. Normal pancreas allowing for stable punctate calcification along the pancreas tail. Normal bilateral adrenal glands. Moderate right hydronephrosis and hydroureter with an obstructing distal right ureteral calculus of 0.46 cm 2.5 cm superior to the UVJ. Punctate nonobstructing right inferior renal pole calculus. Right perirenal stranding and trace fluid. Right stable inferior renal pole exophytic cyst. Normal left kidney. Normal visualized stomach. Normal small intestine. Normal colon. The appendix is visualized and appears normal. Minimal stable calcification along the aortic bifurcation and proximal common iliac arteries. No abdominal aortic aneurysm. Left retroaortic renal vein is a vascular variant. Normal inferior vena cava. Indistinct stable left periaortic lymph nodes just inferior to the left renal vein less than 1 cm in short axis. Normal retroperitoneum. Normal urinary bladder. There is enlargement of the prostate gland. There is a stable small umbilical hernia containing fat. There are degenerative changes of the visualized lumbar spine. CT/Abdomen/Pelvis without Cont IMPRESSION: Moderate right hydronephrosis and hydroureter with an obstructing distal right ureteral calculus of 0.4 cm. There is no appendicitis, colitis, ascites, abdominal aortic aneurysm, abscess, collection, perforation or obstruction. Stable minimal arteriosclerosis, degenerative changes, right renal cyst, mild prostate enlargement, fat-containing umbilical hernia, possible reactive lymph nodes in the retroperitoneum and remote pancreatitis sequela. Electronically Signed: Dian Santa MD at 5:58 EDT , Service support ,
--- NOTE | 2020-02-24 05:06 | ED.DCSUM_ITS ---
History of Present Illness Chief Complaint: Flank Pain Informant: Patient Narrative: Patient presents the emergency room with right flank pain. Patient states he has a history of kidney stones and this feels very similar. Last night around 2200 hrs. he began to have discomfort right flank right inguinal region. Around 1 AM it got significantly worse and has since waxed and waned. He notes the urge to urinate but states very little comes out. No fevers. He also notes a degree of constipation. Past Medical History - Allergies and Home Meds Allergies/Adverse Reactions: Allergies Penicillins Allergy (Verified 02/24/20 05:06) Anaphylaxis hydromorphone [From Dilaudid] Adverse Reaction (Verified 02/24/20 05:06) PT UNSURE OF REACTION Primary Care Physician: Goldie Kohler DO [Primary Care Provider] - Surgical History: - - Left foot remotely Smoking Status: Unknown if ever smoked Review of Systems General: Denies: Chills, Fever, Sweats Eyes: Denies: Visual changes - bilaterally, Diplopia ENT: Denies: Rhinorrhea, Sore throat Cardiovascular: Denies: Chest pain, Palpitations Respiratory: Denies: Dyspnea, Cough, Dyspnea on exertion Gastrointestinal: Reports: Nausea, Constipation. Denies: Abdominal pain, Vomiting, Diarrhea, Melena, Hematochezia Genitourinary: Reports: - - Flank pain. Denies: Dysuria, Hematuria, Frequency Musculoskeletal: Denies: Back pain, Extremity Pain Skin: Denies: Rash, Wounds Neurological: Denies: Headache, Weakness, Numbness Physical Exam Vital Signs/Narrative: Vital Signs Temp Pulse Resp BP Pulse Ox 02/24/20 05:02 98.3 F 62 18 157/81 H 97 Inital Vital Signs reviewed: Yes General: Well nourished, Well developed, No Acute Distress Head: Normocephalic, Atraumatic Eyes: Perrl, EOMI ENT: Moist mucous membranes, No rhinorrhea Neck: Supple, Nontender Cardiovascular: Regular rate, Regular rhythm, No murmurs Respiratory: No distress, CTA bilaterally, Chest nontender Abdomen: Soft, Nontender, Nondistended, Normal bowel sounds Back: Nontender, Normal Inspection Extremities: Nontender, No edema Skin: Normal color, No rash Neurological: Alert, Oriented x3, Cranial nerves II-XII grossly intact, Normal Strength, Normal Sensation Psychological: Normal affect, Normal Mood Diagnostic/Tx/Re-eval Clinical Impression(s) from Imaging Studies Abdomen/Pelvis CT 02/24/20 05:05 IMPRESSION: Moderate right hydronephrosis and hydroureter with an obstructing distal right ureteral calculus of 0.4 cm. There is no appendicitis, colitis, ascites, abdominal aortic aneurysm, abscess, collection, perforation or obstruction. Stable minimal arteriosclerosis, degenerative changes, right renal cyst, mild prostate enlargement, fat-containing umbilical hernia, possible reactive lymph nodes in the retroperitoneum and remote pancreatitis sequela. Electronically Signed: Dian Santa MD at 5:58 EDT , Service support , Laboratory Last Values WBC 9.7 K/mm3 (4.4-11.0) 02/24/20 05:05 RBC 5.01 M/mm3 (4.6-6.2) 02/24/20 05:05 Hgb 14.7 g/dL (13.0-16.5) 02/24/20 05:05 Hct 46.3 % (40-54) 02/24/20 05:05 MCV 92.4 fL (80-94) 02/24/20 05:05 MCH 29.3 pg (27.0-32.0) 02/24/20 05:05 MCHC 31.7 g/dL (32-36) L 02/24/20 05:05 RDW Std Deviation 42.5 fl (35.1-43.9) 02/24/20 05:05 RDW Coeff of Chante 12.6 % (11.6-14.6) 02/24/20 05:05 Plt Count 234 K/mm3 (150-450) 02/24/20 05:05 MPV 9.8 fl (6.2-12.0) 02/24/20 05:05 Immature Gran % (Auto) 0.700 % (0.0-0.9) 02/24/20 05:05 Neut % (Auto) 74.5 % (47-70) H 02/24/20 05:05 Lymph % (Auto) 14.9 % (19-41) L 02/24/20 05:05 [place] % (Auto) 7.2 % (0-10) 02/24/20 05:05 Eos % (Auto) 1.9 % (0-5) 02/24/20 05:05 Baso % (Auto) 0.8 % (0-1) 02/24/20 05:05 Absolute Neuts (auto) 7.2 X10^3/uL (2.0-7.7) 02/24/20 05:05 Absolute Lymphs (auto) 1.44 X10^3/uL (0.83-4.51) 02/24/20 05:05 Nucleated RBC % 0 % (0-5) 02/24/20 05:05 Sodium 141 mmol/L (136-145) 02/24/20 05:05 Potassium 4.4 mmol/L (3.5-5.1) 02/24/20 05:05 Chloride 107 mmol/L (98-107) 02/24/20 05:05 Carbon Dioxide 26.0 mmol/L (21.0-32.0) 02/24/20 05:05 Anion Gap 8 (5-15) 02/24/20 05:05 BUN 29 mg/dL (7-18) H 02/24/20 05:05 Creatinine 1.06 mg/dL (0.70-1.30) 02/24/20 05:05 Estim Creat Clear Calc 73.18 ml/min 02/24/20 05:05 Est GFR (MDRD) Af Amer 91 mL/min (>60) 02/24/20 05:05 Est GFR (MDRD) Non-Af 75 mL/min (>60) 02/24/20 05:05 BUN/Creatinine Ratio 27.4 RATIO (-) H 02/24/20 05:05 Glucose 216 mg/dL (74-106) H 02/24/20 05:05 Calcium 8.8 mg/dL (8.5-10.1) 02/24/20 05:05 Urine Color Yellow (Yellow) 02/24/20 05:15 Urine Clarity Clear (Clear) 02/24/20 05:15 Urine pH 5.0 (5.0 - 8.0) 02/24/20 05:15 Ur Specific [place] 1.025 (1.002-1.030) 02/24/20 05:15 Urine Protein 15 mg/dl (Negative) H 02/24/20 05:15 Urine Glucose (UA) 50 mg/dl (Normal) H 02/24/20 05:15 Urine Ketones Negative mg/dl (Negative) 02/24/20 05:15 Urine Occult Blood 150 /ul (Negative) H 02/24/20 05:15 Urine Nitrite Negative (Negative) 02/24/20 05:15 Urine Bilirubin Negative mg/dL (Negative) 02/24/20 05:15 Urine Urobilinogen Normal mg/dl (Normal) 02/24/20 05:15 Ur Leukocyte Esterase 25 /ul (Negative) H 02/24/20 05:15 Urine RBC 10-25 SEEN /hpf (0-5) 02/24/20 05:15 Urine WBC 0-5 SEEN /hpf (0-5) 02/24/20 05:15 Ur Squamous Epith Cells 0 SEEN /hpf (0-5) 02/24/20 05:15 Urine Bacteria RARE /hpf (None Seen) 02/24/20 05:15 Urine Mucus 0 SEEN /hpf (<or=2+) 02/24/20 05:15 - Medical Decision Making Patient received pain and nausea medication and IV fluids. Repeat examination he feels significantly improved. The patient will be discharged home to arrange urologic follow-up. I will write for [place] and Zofran. Return if worsening or concerns. ED Disposition - Plan for ED Patient: Disposition: Home or Assisted Living Diagnosis: Right ureteral calculus, Hydronephrosis, Renal colic on right side Instructions: ED Renal Stone w Colic Prescriptions: Hydrocodone Bitart/Apap 5-325 [[place] 5MG-325MG] 1 - 2 tab PO Q6H PRN PRN 5 Days #20 tab PRN Reason: Pain Prescription Printed Ondansetron [Zofran Odt] 4 mg PO Q6H PRN PRN #14 tab PRN Reason: Nausea Prescription Printed Referrals: Scot Cummins MD [STAFF PHYSICIAN] - (call to arrange urologic follow up)
[2020-02-24] MEDS: 0.9% Normal Saline 1,000 ML 250 ML IV (05:13)
[2020-02-24] MEDS: Ondansetron 4 MG/2 ML Vial IV (05:13)
[2020-02-24] MEDS: Ketorolac 30 MG/ML Syringe 15 MG IV (05:14)
[2020-02-24] MEDS: Morphine 4 MG/ML Syringe IV (05:16)
[2020-02-24 05:20] LABS: Mucous, Urine 0 SEEN /hpf (<or=2+); Squamous Epithelial Cells - UA 0 SEEN /hpf (0-5)
[2020-02-24 05:21] LABS: Absolute Lymphocyte Count 1.44 X10^3/uL (0.83-4.51); Absolute Neutrophil Count 7.2 X10^3/uL (2.0-7.7); Basophil# 0.08 X10^3/uL; Basophil% 0.8 % (0-1); Eosinophil# 0.18 X10^3/uL; Eosinophils% 1.9 % (0-5); Hematocrit 46.3 % (40-54); Hemoglobin 14.7 g/dL (13.0-16.5); Lymphocyte # 1.44 X10^3/ul (4.0); Lymphocyte % 14.9 % (19-41); Mean Corp Hgb Conc 31.7 g/dL (32-36); Mean Corpuscular Hgb 29.3 pg (27.0-32.0); Mean Corpuscular Volume 92.4 fL (80-94); Mean Platelet Vol. 9.8 fl (6.2-12.0); Monocyte% 7.2 % (0-10); NRBC Flagged by Analyzer 0 % (0-5); Neutrophil # 7.22 X10^3/uL (2.7-7.7); Neutrophil % 74.5 % (47-70); Platelet Count 234 K/mm3 (150-450); RBC Distribution Width CV 12.6 % (11.6-14.6); RBC Distribution Width SD 42.5 fl (35.1-43.9); Red Blood Count 5.01 M/mm3 (4.6-6.2); White Blood Count 9.7 K/mm3 (4.4-11.0)
[2020-02-24 05:22] LABS: Color, Urine Yellow (Yellow); Glucose, Dipstick 50 mg/dl (Normal); Ketone-Dipstick Negative (Negative); Leukocyte Esterase-Dipstick 25 /ul (Negative); Nitrite-Dipstick Negative (Negative); Occult Blood-Urine 150 /ul (Negative); Protein-Dipstick 15 mg/dl (Negative); Specific Gravity, Urine 1.025 (1.002-1.030); Urine Bilirubin Dipstick Negative (Negative); Urine Clarity Clear (Clear); Urine Urobilinogen Normal (Normal)
[2020-02-24 05:28] LABS: Bacteria RARE /hpf (None Seen); Red Blood Cells-Urine 10-25 SEEN /hpf (0-5); White Blood Cells 0-5 SEEN /hpf (0-5)
[2020-02-24 05:31] LABS: Anion Gap 8 (5-15); BUN 29 mg/dL (7-18); BUN/Creat Ratio 27.4 RATIO (10-20); Calcium,Total 8.8 mg/dL (8.5-10.1); Chloride 107 mmol/L (98-107); Creatinine, Serum 1.06 mg/dL (0.70-1.30); EST Glomerular Filtration Rate 75 mL/min (>60); Est Glom Filt Rate - Afr Amer 91 mL/min (>60); Estimated Creatinine Clearance 73.18 ml/min; Glucose 216 mg/dL (74-106); Potassium 4.4 mmol/L (3.5-5.1); Sodium Level 141 mmol/L (136-145)
[2020-02-24 06:12] VITALS: BP 129/72; PULSE 66; RESP 16; O2SAT 96
== END 2020-02-24 06:14 | disposition home or self-care (01) ==
PROVIDERS: Emergency Provider Emergency Medicine; PCP Internal Medicine
DX: N13.2 Hydronephrosis with renal and ureteral calculous obstruction (principal); Z87.442 Personal history of urinary calculi
CPT/HCPCS: 74176; 80048; 81001; 85025; 96361; 96374; 96375; 99283; J7030; A4216; J2405

== ENCOUNTER 2020-03-04 10:45 | Day surgery (SDC) | payer OTHER, SELFPAY ==
[2020-03-04 11:08] VITALS: BP 122/75; PULSE 57; RESP 16; TEMP 36.6; O2SAT 99; BMI 39.5
[2020-03-04] MEDS: Lactated Ringers 1,000 ML 100 ML IV (11:28)
--- NOTE | 2020-03-04 12:25 | PCM.HP.STD ---
History of Present Illness Date of Admission: 03/04/20 Chief Complaint: Right ureteral calculi The patient is a 59 year old male with a large stone in the distal right ureter has failed the past the stone plan to proceed with ureteroscopy laser and balloon dilation Past Medical History Past Medical History (Chronic Problems): Chronic Problems Hyperlipidemia (Chronic) Allergies Penicillins Allergy (Verified 03/02/20 14:03) Anaphylaxis hydromorphone [From Dilaudid] Adverse Reaction (Verified 03/02/20 14:03) PT UNSURE OF REACTION Home Medications: Ambulatory Orders Medication Instructions Recorded Meloxicam [Mobic] 15 mg PO DAILY 08/04/15 Aspirin [Aspir 81] 81 mg PO DAILY 03/02/20 Atenolol [Tenormin (beta Manjinder)] 25 mg PO DAILY 03/02/20 Cholecalciferol (Vitamin D3) 250 mcg PO DAILY 03/02/20 [Vitamin D3] Hydrocodone/Acetaminophen [[place] 2 ea PO PRN PRN 03/02/20 5-325 Tablet] Simvastatin 20 mg PO DAILY 03/02/20 Vilazodone Hydrochloride [Viibryd] 40 mg PO QHS 03/02/20 Vitamin E 400 units PO DAILY 03/02/20 Surgical History: - - Left foot remotely Smoking Status: Never smoker Tobacco Use: Non-smoker Review of Systems Constitutional: Denies: Chills, Fever, Weight Change HEENT: Denies: Head Aches, Sinus Congestion, Sinus Drainage Cardiovascular: Denies: Chest Pain, Palpitations Respiratory: Denies: Cough, Shortness of breath at rest, Sputum production Gastrointestinal: Denies: Abdominal Pain, Nausea, Vomiting Genitourinary: Denies: Dysuria Musculoskeletal: Denies: Joint Pain, Joint Tenderness Skin: Denies: Rash, Wounds Neurological: Denies: Numbness, Tingling, Focal weakness Psychiatric: Denies: Anxiety, Depression, Homicidal Ideations, Suicidal Ideations Hematologic/ Lymphatic: Denies: Easy Bruising, Easy Bleeding VTE Information - Inpt Only VTE Present on Admission: No VTE Mechan Device Prophylaxis: SCD's - Physical Exam Vitals/I&O's: Vital Signs Temp Pulse Resp BP Pulse Ox 98 F 57 L 16 122/75 H 99 03/04/20 11:08 03/04/20 11:08 03/04/20 11:08 03/04/20 11:08 03/04/20 11:08 Oxygen Delivery Method Room Air Weight: 123.2 kg Body Mass Index (BMI) 39.5 General: Alert, Oriented x3, Cooperative HEENT: Atraumatic, PERRLA, EOMI, Normocephalic Neck: Supple, No JVD, Negative Carotid Bruits Lungs: Clear to auscultation, Normal air movement Cardiovascular: Regular rate, No murmurs Abdomen: Bowel Sounds Present, Soft, Non Tender Extremities: No edema, Capillary Refill Less than 3 Seconds Skin: No rashes, No breakdown Musculoskeletal: No Tenderness to Palpation of Joints or Extremities Neurological: Cranial nerves II-XII grossly intact Psych/Mental Status: Normal Affect, Appropriate Laboratory Results 03/03/20 12:20: COVID-19 (LARRY) Not Detected Current Medications Lactated Ringer's () 1,000 mls @ 100 mls/hr IV .Q10H JOYCE Last Admin: 03/04/20 11:28 Dose: 100 mls/hr Documented by: Assessment/Plan 59-year-old male with right ureteral calculi plan to proceed with ureteroscopy laser stone stent.
[2020-03-04] MEDS: Ketorolac 15 MG/ML Vial IV (12:28)
--- NOTE | 2020-03-04 12:28 | DCINST_ITS ---
Discharge Diet: Light diet - advance as tolerated Discharge Activity: Return to Normal Activity Allergies/Adverse Reactions: Allergies Penicillins Allergy (Verified 03/02/20 14:03) Anaphylaxis hydromorphone [From Dilaudid] Adverse Reaction (Verified 03/02/20 14:03) PT UNSURE OF REACTION Medications to take at Discharge Meloxicam [Mobic] 15 mg PO DAILY 08/04/15 Aspirin [Aspir 81] 81 mg PO DAILY 03/02/20 Atenolol [Tenormin (beta Manjinder)] 25 mg PO DAILY 03/02/20 Cholecalciferol (Vitamin D3) [Vitamin D3] 250 mcg PO DAILY 03/02/20 Hydrocodone/Acetaminophen [[place] 5-325 Tablet] 2 ea PO PRN PRN 03/02/20 Simvastatin 20 mg PO DAILY 03/02/20 Vilazodone Hydrochloride [Viibryd] 40 mg PO QHS 03/02/20 Vitamin E 400 units PO DAILY 03/02/20 Cephalexin [Keflex] 500 mg PO Q8 #15 cap 03/04/20 Hydrocodone/Acetaminophen [[place] 5-325 Tablet] 1 each PO Q4H PRN PRN 5 Days #20 tablet 03/04/20 The following prescriptions were given: Cephalexin [Keflex] 500 mg PO Q8 #15 cap Transmission Status: Pending to [facility] Hydrocodone/Acetaminophen [[place] 5-325 Tablet] 1 each PO Q4H PRN PRN 5 Days #20 tablet PRN Reason: Pain Score 1-10/10 Transmission Status: Sent to [facility] Primary Care Physician: Goldie Kohler DO [Primary Care Provider] - Test Results: Test results from this visit will be discussed in further detail at your follow- up appointment, if applicable. Please Follow Up With: Scot Cummins MD When: please call to make an appointment.
--- NOTE | 2020-03-04 12:53 | OP.PCM_ITS ---
Report of Operation Date of Procedure: 03/04/20 Pre-Operative Diagnosis: Right ureteral calculus right ureteral stricture Post-Operative Diagnosis: Same Surgery/Procedure Performed:: Cystoscopy, balloon dilation of the right ureteral stricture, right ureteroscopy laser lithotripsy of stone and stent placement. right retrograde pyelogram and interpretation fluoroscopic images. Description of Surgical Findings:: 59-year-old male taken back to the operating room at the smooth induction of general anesthesia he was placed in dorsolithotomy position the penis and testicles were prepped and draped in usual sterile fashion, went into the [facility] er with a 21 [place] rigid cystourethroscope the entire length the urethra was normal the prostate was normal inside the bladder at identified the right ureteral orifice. The bladder was normal. I then cannulated the right ureter orifice with a 0.038 Glidewire initially hit the stone then I pulled back and did a retrograde pyelogram he could see a stricture in the distal ureter so then I used a 0.035 Glidewire advanced this past the area of narrowing balloon dilated with a 12 [place] 4 cm balloon dilator after balloon dilating the distal ureter left the wire in place and then next to the wire went in with a SlimLine rigid ureteroscope I was able to get into the ureter I then encountered the stone and I used a 270 ?m laser fiber and lasered the stone that was a 4 mm stone in the ureter into little tiny pieces then all the pieces then were lasered and then all the pieces flushed into the bladder as I was lasering the stone. On retrograde pyelogram I could see contrast go up the ureter could see his stones as a filling defects these were radiolucent stones most likely uric acid stones and saw to narrow the areas of narrowing a ureteral stricture in the distal ureter where stones were stuck. Once the procedure was done at [facility] lasering the stone and perform balloon dilation and retrograde then I placed a wire up into the kidney and over the wire place a stent stent went good in proper position left the string of the stent for cystoscopy stent extraction next week. Type of Anesthesia:: General Drains: stent right - Admit VTE Documentation VTE Present on Admission: No VTE Mechan Device Prophylaxis: SCD's
[2020-03-04 13:07] VITALS: BP 122/75; BP 134/85; PULSE 58; RESP 16; TEMP 36.5; O2SAT 96
[2020-03-04 13:30] VITALS: BP 122/75; BP 123/78; PULSE 63; RESP 16; O2SAT 98
[2020-03-04 13:40] VITALS: BP 122/75; PULSE 58; RESP 16; TEMP 36.5; O2SAT 98
[2020-03-04 14:08] VITALS: BP 122/75
== END 2020-03-04 14:10 | disposition home or self-care (01) ==
LOC: SDC 10:47 → AC 10:47
PROVIDERS: Anesthesiology; PCP Internal Medicine; Referring Provider Urology; Visit Provider Urology
PROC: 0TJ98ZZ Inspection of Ureter, Via Natural or Artificial Opening Endoscopic (ICD-10-PCS; CPT 52352; principal; 2020-03-04 12:40)
DX: N20.1 Calculus of ureter (principal); N13.39 Other hydronephrosis; Z87.442 Personal history of urinary calculi; Z11.59 Encounter for screening for other viral diseases; I71.4 Abdominal aortic aneurysm, without rupture; E78.00 Pure hypercholesterolemia, unspecified; E78.5 Hyperlipidemia, unspecified; F41.9 Anxiety disorder, unspecified; Z79.82 Long term (current) use of aspirin; Z79.1 Long term (current) use of non-steroidal anti-inflammatories (NSAID)
CPT/HCPCS: 52356; 76000; 87635; G2023; J7120; C1769; C2617; J2405; U0003

== ENCOUNTER → 2020-04-11 14:23 | Outpatient (CLI) | payer OTHER, SELFPAY ==
--- NOTE | 2020-04-11 14:25 | CT_ITS ---
STUDY: CT CHEST WITH CONTRAST REASON FOR EXAM: Male, 60 years old patient with thoracic aortic aneurysm. RADIATION DOSAGE (If Supplied By Facility): CTDIvol = ( 20.26 ) mGy, DLP = ( 734.32 ) mGycm TECHNIQUE: Transaxial imaging was performed following intravenous administration of 100 mL of Isovue-300. Multiplanar coronal and sagittal images were reformatted. Individualized dose optimization techniques were used for this CT. COMPARISON: CT of the chest dated 04-20-19. FINDINGS: The lungs are normal. There is no demonstrated pleural abnormality. There is borderline cardiomegaly. There are calcifications of the coronary arteries. Normal mediastinum. Normal hilar regions. Normal enhanced pulmonary arteries. There is atherosclerotic tortuosity of the aortic arch and descending thoracic aorta. Maximum transverse dimension of the ascending thoracic aorta measures approximately 5.4 cm. The descending thoracic aorta has a normal appearance. There are multi-level degenerative changes of the thoracic spine. There is no demonstrated abnormality of the visualized upper abdomen. CT/Chest WITH Contrast IMPRESSION: Ascending thoracic aortic aneurysm measuring 5.4 cm in greatest transverse dimension. Electronically Signed: Betsy Katz MD at 7:58 EDT , Service support ,
[2020-04-11 15:11] LABS: CREATININE FINGERSTICK 0.8 mg/dL (0.70-1.30)
== END ==
PROVIDERS: PCP Internal Medicine; Referring Provider Internal Medicine; Visit Provider Internal Medicine
DX: I71.2 Thoracic aortic aneurysm, without rupture (principal)
CPT/HCPCS: 71260; Q9967

== ENCOUNTER → 2020-05-20 13:59 | Outpatient (CLI) | payer OTHER, SELFPAY ==
[2020-05-20 14:10] LABS: Absolute Lymphocyte Count 1.78 X10^3/uL (0.83-4.51); Absolute Neutrophil Count 10.5 X10^3/uL (2.0-7.7); Basophil# 0.09 X10^3/uL; Basophil% 0.6 % (0-1); Eosinophil# 0.23 X10^3/uL; Eosinophils% 1.6 % (0-5); Hematocrit 36.8 % (40-54); Hemoglobin 11.3 g/dL (13.0-16.5); Lymphocyte # 1.78 X10^3/ul (4.0); Lymphocyte % 12.7 % (19-41); Mean Corp Hgb Conc 30.7 g/dL (32-36); Mean Corpuscular Hgb 28.9 pg (27.0-32.0); Mean Corpuscular Volume 94.1 fL (80-94); Mean Platelet Vol. 9.1 fl (6.2-12.0); Monocyte% 9.3 % (0-10); NRBC Flagged by Analyzer 0 % (0-5); Neutrophil # 10.48 X10^3/uL (2.7-7.7); Neutrophil % 74.6 % (47-70); Platelet Count 554 K/mm3 (150-450); RBC Distribution Width CV 12.9 % (11.6-14.6); RBC Distribution Width SD 44.3 fl (35.1-43.9); Red Blood Count 3.91 M/mm3 (4.6-6.2); White Blood Count 14.1 K/mm3 (4.4-11.0)
[2020-05-20 14:19] LABS: ALB/GLOB Ratio 0.7 RATIO (0.9-2.4); AST(SGOT) 46 U/L (15-37); Alanine Aminotransfer ALT/SGPT 120 U/L (16-61); Albumin, Serum 2.8 g/dL (3.2-5.0); Alkaline Phosphatase 94 U/L (45-117); Anion Gap 7 (5-15); BUN 22 mg/dL (7-18); BUN/Creat Ratio 19.8 RATIO (10-20); Calcium,Total 8.7 mg/dL (8.5-10.1); Chloride 106 mmol/L (98-107); Creatinine, Serum 1.11 mg/dL (0.70-1.30); EST Glomerular Filtration Rate 71 mL/min (>60); Est Glom Filt Rate - Afr Amer 86 mL/min (>60); Glucose 91 mg/dL (74-106); Potassium 4.8 mmol/L (3.5-5.1); Protein, Total 6.8 g/dL (6.4-8.2); Sodium Level 142 mmol/L (136-145)
[2020-05-20 14:25] LABS: International Normalized Ratio 2.5; Prothrombin Time (Protime)PT. 26.4 SECONDS (11.7-14.9)
== END ==
PROVIDERS: PCP Internal Medicine; Referring Provider Internal Medicine; Visit Provider Internal Medicine
DX: I48.91 Unspecified atrial fibrillation (principal); Z79.899 Other long term (current) drug therapy
CPT/HCPCS: 80053; 85025; 85610

== ENCOUNTER → 2020-07-18 09:02 | Outpatient (CLI) | payer OTHER, SELFPAY | PROVIDERS: PCP Internal Medicine; Referring Provider Internal Medicine; Visit Provider Internal Medicine | DX: I49.3 Ventricular premature depolarization (principal) | CPT/HCPCS: 93225; 93226 ==

== ENCOUNTER → 2020-11-08 16:03 | Outpatient (CLI) | payer OTHER, SELFPAY ==
[2020-11-08 16:13] LABS: Bacteria 0 SEEN /hpf (None Seen); Mucous, Urine 0 SEEN /hpf (<or=2+); Squamous Epithelial Cells - UA 0 SEEN /hpf (0-5); White Blood Cells 0 SEEN /hpf (0-5)
[2020-11-08 16:27] LABS: Color, Urine Yellow (Yellow); Glucose, Dipstick Normal (Normal); Ketone-Dipstick Negative (Negative); Leukocyte Esterase-Dipstick Negative /ul (Negative); Nitrite-Dipstick Negative (Negative); Occult Blood-Urine 25 /ul (Negative); Protein-Dipstick Negative (Negative); Specific Gravity, Urine 1.015 (1.002-1.030); Urine Bilirubin Dipstick Negative (Negative); Urine Clarity Clear (Clear); Urine Urobilinogen Normal (Normal)
[2020-11-08 16:39] LABS: Calcium Oxalate Crystals Ur 1+ /hpf (<or=2+); Red Blood Cells-Urine 0-5 SEEN /hpf (0-5)
== END ==
PROVIDERS: PCP Internal Medicine; Referring Provider Nurse Practitioner Adult Health; Visit Provider Nurse Practitioner Adult Health
DX: R31.21 Asymptomatic microscopic hematuria (principal)
CPT/HCPCS: 81001

== ENCOUNTER 2020-11-26 14:16 | Emergency (ER) | payer OTHER, SELFPAY ==
[2020-11-26 14:17] VITALS: BP 155/82; PULSE 53; RESP 18; TEMP 36.4; O2SAT 96; BMI 40.6
--- NOTE | 2020-11-26 14:29 | ED.DCSUM_ITS ---
History of Present Illness Chief Complaint: Complaint Informant: Patient Narrative: 60-year-old male presenting with abdominal pain. He states the onset was about 9 AM this morning. He states it does come and go. It feels achy. It is similar to previous kidney stones however not quite the same. He denies fever or nausea. He states his pain is progressed over the course of the day. He has not had a fever or chills. He denies dysuria or hematuria. - Past Medical History (1) Hyperlipidemia Status: Chronic Past Medical History - Allergies and Home Meds Allergies/Adverse Reactions: Allergies Penicillins Allergy (Verified 11/26/20 14:18) Anaphylaxis hydromorphone [From Dilaudid] Adverse Reaction (Verified 11/26/20 14:18) PT UNSURE OF REACTION Primary Care Physician: Goldie Kohler DO [Primary Care Provider] - Scot Cummins MD [STAFF PHYSICIAN] - Past Medical History: - - Thoracic aortic aneurysm with repair Surgical History: - - Left foot remotely Lives: Alone Smoking Status: Never smoker Alcohol: None Drugs: None Review of Systems General: Denies: Chills, Fever, Sweats Eyes: Denies: Visual changes - bilaterally, Diplopia ENT: Denies: Rhinorrhea, Sore throat Cardiovascular: Denies: Chest pain, Palpitations Respiratory: Reports: Dyspnea Gastrointestinal: Reports: Abdominal pain, Constipation. Denies: Nausea, Vomiting, Diarrhea Musculoskeletal: Denies: Myalgias, Arthralgias Skin: Denies: Rash, Abscess Neurological: Denies: Headache, Weakness Psych: Denies: Depression, Anxiety Physical Exam Vital Signs/Narrative: Vital Signs Temp Pulse Resp BP Pulse Ox 11/26/20 14:17 97.5 F L 53 L 18 155/82 H 96 Inital Vital Signs reviewed: Yes General: Obese, No Acute Distress Head: Normocephalic, Atraumatic Eyes: Perrl, EOMI. Negative for: Scleral icterus ENT: Moist mucous membranes Neck: Supple, Nontender Cardiovascular: Regular rate, Regular rhythm, No murmurs Respiratory: No distress, CTA bilaterally, Chest nontender Abdomen: Soft, Nondistended, Tender - Tenderness to palpation in the right lower quadrant. Back: Negative for: CVA tenderness, Spinal tenderness Extremities: Nontender, No edema Skin: Normal color, No rash Neurological: Alert, Oriented x3, Cranial nerves II-XII grossly intact Psychological: Normal affect, Normal Mood Diagnostic/Tx/Re-eval Clinical Impression(s) from Imaging Studies Abdomen/Pelvis CT 11/26/20 15:08 IMPRESSION: Distal right ureter calculus (3.2 mm) with hydronephrosis/hydroureter. Electronically Signed: Hayder Scott MD ([place]) at 15:39 EST , Service support , Laboratory Data 11/26/20 11/26/20 11/26/20 14:45 14:45 14:45 WBC 6.3 RBC 5.01 Hgb 14.3 Hct 45.2 MCV 90.2 MCH 28.5 MCHC 31.6 L RDW Std Deviation 42.6 RDW Coeff of [place] 13.2 Plt Count 238 MPV 9.8 Immature Gran % (Auto) 0.300 Neut % (Auto) 60.8 Lymph % (Auto) 23.5 [place] % (Auto) 9.8 Eos % (Auto) 4.6 Baso % (Auto) 1.0 Absolute Neuts (auto) 3.8 Absolute Lymphs (auto) 1.48 Nucleated RBC % 0 Sodium 140 Potassium 4.2 Chloride 106 Carbon Dioxide 29.0 Anion Gap 5 BUN 19 H Creatinine 1.11 Estim Creat Clear Calc 69.00 Est GFR (MDRD) Af Amer 86 Est GFR (MDRD) Non-Af 71 BUN/Creatinine Ratio 17.1 Glucose 94 Calcium 9.4 Total Bilirubin 0.30 AST 23 ALT 28 Alkaline Phosphatase 73 Total Protein 7.4 Albumin 3.8 Globulin 3.6 Albumin/Globulin Ratio 1.1 Lipase 80 Urine Color Yellow Urine Clarity Clear Urine pH 5.0 Ur Specific [place] 1.030 Urine Protein 15 H Urine Glucose (UA) Normal Urine Ketones 5 H Urine Occult Blood 150 H Urine Nitrite Negative Urine Bilirubin Negative Urine Urobilinogen Normal Ur Leukocyte Esterase 25 H Urine RBC 5-10 SEEN Urine WBC 0-5 SEEN Ur Squamous Epith Cells 0 SEEN Urine Bacteria 0 SEEN Urine Mucus 0 SEEN - Medical Decision Making 60-year-old male presenting for concerns of kidney stone. He does have right lower quadrant pain but does not have CVA tenderness. He does state his back hurts. I did check the urine and noticed that there is occult blood in it. For this reason we will get CT abdomen pelvis without contrast. Patient's blood work shows normal CBC, CMP, lipase. Patient is given morphine and Zofran with relief of his pain. CT abdomen pelvis without contrast shows 3.2 mm distal ureteral stone. Patient will be given [place], Zofran for home. He will follow up with Dr. Cummins. Patient stable for discharge at this time. Impression: 1. 3.2 mm ureteral stone ED Disposition - Plan for ED Patient: Disposition: Home or Assisted Living Instructions: ED Kidney Stone w/ Colic Prescriptions: Hydrocodone Bitart/Apap 5-325 [[place] 5MG-325MG] 1 tab PO Q4H PRN PRN 2 Days #12 tab PRN Reason: Pain Prescription Printed Ondansetron [Zofran Odt] 4 mg PO Q8H PRN PRN #14 tab PRN Reason: Nausea Prescription Printed Referrals: Goldie Kohler DO [Primary Care Provider] - Scot Cummins MD [STAFF PHYSICIAN] -
[2020-11-26] MEDS: Morphine 4 MG/ML Syringe IV (14:45)
[2020-11-26] MEDS: 0.9% Normal Saline 1,000 ML 1000 ML IV (14:45)
[2020-11-26] MEDS: Ondansetron 4 MG/2 ML Vial IV (14:45)
[2020-11-26 14:58] LABS: Bacteria 0 SEEN /hpf (None Seen); Mucous, Urine 0 SEEN /hpf (<or=2+); Squamous Epithelial Cells - UA 0 SEEN /hpf (0-5)
[2020-11-26 15:01] LABS: Absolute Lymphocyte Count 1.48 X10^3/uL (0.83-4.51); Absolute Neutrophil Count 3.8 X10^3/uL (2.0-7.7); Basophil# 0.06 X10^3/uL; Color, Urine Yellow (Yellow); Eosinophil# 0.29 X10^3/uL; Eosinophils% 4.6 % (0-5); Glucose, Dipstick Normal (Normal); Hematocrit 45.2 % (40-54); Hemoglobin 14.3 g/dL (13.0-16.5); Ketone-Dipstick 5 mg/dl (Negative); Leukocyte Esterase-Dipstick 25 /ul (Negative); Lymphocyte # 1.48 X10^3/ul (4.0); Lymphocyte % 23.5 % (19-41); Mean Corp Hgb Conc 31.6 g/dL (32-36); Mean Corpuscular Hgb 28.5 pg (27.0-32.0); Mean Corpuscular Volume 90.2 fL (80-94); Mean Platelet Vol. 9.8 fl (6.2-12.0); Monocyte# 0.62 X10^3/uL; Monocyte% 9.8 % (0-10); NRBC Flagged by Analyzer 0 % (0-5); Neutrophil # 3.84 X10^3/uL (2.7-7.7); Neutrophil % 60.8 % (47-70); Nitrite-Dipstick Negative (Negative); Occult Blood-Urine 150 /ul (Negative); Platelet Count 238 K/mm3 (150-450); Protein-Dipstick 15 mg/dl (Negative); RBC Distribution Width CV 13.2 % (11.6-14.6); RBC Distribution Width SD 42.6 fl (35.1-43.9); Red Blood Count 5.01 M/mm3 (4.6-6.2); Urine Bilirubin Dipstick Negative (Negative); Urine Clarity Clear (Clear); Urine Urobilinogen Normal (Normal); White Blood Count 6.3 K/mm3 (4.4-11.0)
[2020-11-26 15:08] LABS: Red Blood Cells-Urine 5-10 SEEN /hpf (0-5); White Blood Cells 0-5 SEEN /hpf (0-5)
--- NOTE | 2020-11-26 15:08 | CT_ITS ---
EXAM: CT ABDOMEN AND PELVIS WITHOUT INTRAVENOUS CONTRAST CLINICAL INDICATION: abdominal pain TECHNIQUE: Helically acquired images were obtained of the abdomen and pelvis without intravenous contrast. This CT exam was performed using one or more of the following dose reduction techniques: automated exposure control, adjustment of the mA and/or kV according to patient size, and/or use of iterative reconstruction technique. This report was created using [employer] report generation technology. COMPARISON: 02/24/2020 FINDINGS: LOWER THORAX: Unremarkable. Lung bases are clear. No cardiomegaly. No significant pericardial effusion. ABDOMEN: LIVER: Unremarkable. Homogeneous. GALLBLADDER AND BILE DUCTS: Unremarkable. No calcified gallstones. No gallbladder distention or wall edema. No intra- or extrahepatic biliary ductal dilation. PANCREAS: Unremarkable. No focal cystic mass. SPLEEN: Unremarkable. Normal size without focal cystic or solid mass. ADRENALS: Unremarkable. No nodules. KIDNEYS AND URETERS: Right hydronephrosis and hydroureter with a 3.2 mm calculus in the distal right ureter (image 144 series 2). Exophytic inferior right renal cyst is stable. Normal variant circumaortic left renal vein. Normal renal size and position. STOMACH AND BOWEL: Diverticulosis. No stomach or bowel distention. No focal inflammatory change. PELVIS: APPENDIX: No evidence of acute appendicitis. BLADDER: Unremarkable. REPRODUCTIVE: Unremarkable as visualized. No mass. ABDOMEN and PELVIS: INTRAPERITONEAL SPACE: Unremarkable. No ascites or other fluid collection. No free air. BONES/JOINTS: Unremarkable. No suspicious lytic or blastic abnormality. SOFT TISSUES: Small periumbilical fat-containing hernia. VASCULATURE: Atherosclerosis of the abdominal aorta and iliac arteries. LYMPH NODES: Stable retroperitoneal lymph nodes. TUBES, LINES AND DEVICES: Sternal wires are present. CT/Abdomen/Pelvis without Cont IMPRESSION: Distal right ureter calculus (3.2 mm) with hydronephrosis/hydroureter. Electronically Signed: Hayder Scott MD ([place]) at 15:39 EST , Service support ,
[2020-11-26 15:20] LABS: ALB/GLOB Ratio 1.1 RATIO (0.9-2.4); AST(SGOT) 23 U/L (15-37); Alanine Aminotransfer ALT/SGPT 28 U/L (16-61); Albumin, Serum 3.8 g/dL (3.2-5.0); Alkaline Phosphatase 73 U/L (45-117); Anion Gap 5 (5-15); BUN 19 mg/dL (7-18); BUN/Creat Ratio 17.1 RATIO (10-20); Calcium,Total 9.4 mg/dL (8.5-10.1); Chloride 106 mmol/L (98-107); Creatinine, Serum 1.11 mg/dL (0.70-1.30); EST Glomerular Filtration Rate 71 mL/min (>60); Est Glom Filt Rate - Afr Amer 86 mL/min (>60); Globulin 3.6 g/dL (2.2-4.2); Glucose 94 mg/dL (74-106); Lipase 80 U/L (73-393); Potassium 4.2 mmol/L (3.5-5.1); Protein, Total 7.4 g/dL (6.4-8.2); Sodium Level 140 mmol/L (136-145)
[2020-11-26 16:05] VITALS: BP 176/80; PULSE 90; RESP 18; O2SAT 99
== END 2020-11-26 16:09 | disposition home or self-care (01) ==
PROVIDERS: Emergency Provider Student in an Organized Health Care Education/Training Program; PCP Internal Medicine
DX: N20.1 Calculus of ureter (principal); Z87.442 Personal history of urinary calculi
CPT/HCPCS: 74176; 80053; 81001; 83690; 85025; 96374; 96375; 99283; J7030; A4216; J2405

== ENCOUNTER → 2020-12-01 13:53 | Outpatient (CLI) | payer OTHER, SELFPAY ==
[2020-11-26 14:17] VITALS: BMI 40.6
--- NOTE | 2020-12-01 | IMM_PTH ---
PATIENT: NITISH MAC LOC: [facility] U#:[id number] AGE/SX: 65/M ROOM: RE12/01/[address]: Dr. Scot Cummins MD : 1960 BED: DIS: SPEC #: [id number] RECD: 12/05/20 14:31 STATUS: YODIT REJessica #: [id number] DAMIAN: 12/01/20 00:[address]: Scot Cummins DEPT: IMMUNOHISTOCHEMISTRY RECD BY: Joann Kiser ENTERED: 12/05/20 14:32 SP TYPE: IMMUNO OTHR DR: Dr. Goldie Kohler DO Tissues: B - PROSTATE RIGHT C - PROSTATE RIGHT Procedures: 34BE12 (add) P40 (add) 34BE12 (initial) PHYSICIAN & INSTITUTION [place] [id number] SPECIMEN INFORMATION: Tissue Source: B - Right prostate, mid, core biopsy, C - Right prostate, base, core biopsy Clinical Info: Elevated PSA Specimen Number: [id number] B & C CPT code: 65349, 63864 x3 METHODOLOGY: Deparaffinized sections of prefer/formalin-fixed tissue or PAP/DQ stained slides are incubated with monoclonal/polyclonal antibodies/oligonucleotide probes. Localization is made via biotin free immunoperoxidase method. Appropriate controls are performed and reacted as expected. Results on target cell population are indicated in the following table: RESULTS: ANTIBODY / CLONE RESULT Block B P40 (BC28) negative 34BE12 (34BE12) negative Block C P40 (BC28) positive 34BE12 (34BE12) positive These tests were developed and their performance characteristics determined by [facility]. They may not have been cleared or approved by the U.S. Food and Drug Administration. The FDA has determined that such clearance or approval is not necessary. The above immunohistochemical/dualISH markers are ordered and reviewed by the Pathologist. INTERPRETATION: B. Right prostate, mid, core biopsy: Adenocarcinoma. C. Right prostate, base, core biopsy: Benign prostatic tissue. AM:chio 12/06/2020
--- NOTE | 2020-12-01 | PROSBIL_PTH ---
PATIENT: NITISH MAC LOC: [facility] U#:[id number] AGE/SX: 65/M ROOM: RE12/01/[address]: Dr. Scot Cummins MD : 1960 BED: DIS: SPEC #: [id number] RECD: 12/01/20 13:48 STATUS: YODIT REJessica #: [id number] DAMIAN: 12/01/20 00:[address]: Scot Cummins DEPT: SURGICAL PATHOLOGY RECD BY: Tariq Chiu ENTERED: 12/02/20 08:00 SP TYPE: PROST BX TOY DR: Dr. Goldie Kohler DO Tissues: A - PROSTATE RIGHT B - PROSTATE RIGHT C - PROSTATE RIGHT D - PROSTATE LEFT E - PROSTATE LEFT F - PROSTATE LEFT Procedures: PROSTATE BX HEADER OPERATION: Prostate biopsy PRE-OP DIAGNOSIS: Elevated PSA TISSUE SUBMITTED: A - Right apex, B - Right mid, C - Right base, D - Left apex, E - Left mid, F - Left base MICROSCOPIC DIAGNOSIS A. Right prostate, apex, core biopsy: Adenocarcinoma. [place] grade: 7 (4+3) Cores involved: 2 out of 2 Tissue involved: 40% Greatest tumor length: 4 mm B. Right prostate, mid, core biopsy: Adenocarcinoma. [place] grade: 6 (3+3) Cores involved: 1 out of 2 Tissue involved: 3% Greatest tumor length: 2mm See comment. C. Right prostate, base, core biopsy: Benign prostatic tissue. See comment. D. Left prostate, apex, core biopsy: Adenocarcinoma. [place] grade: 6 (3+3) Cores involved: 1 out of 2 Tissue involved: 40% (discontinuous) Greatest tumor length: 4.5 mm E. Left prostate, mid, core biopsy: Adenocarcinoma. [place] grade: 7 (3+4) Cores involved: 2 out of 2 Tissue involved: 60% Greatest tumor length: 6.5 mm Perineural invasion: Present, focal F. Left prostate, base, core biopsy: Adenocarcinoma. [place] grade: 7 (3+4) Cores involved: 2 out of 2 Tissue involved: 45% Greatest tumor length: 7.5 mm AM:chio 12/05/2020 COMMENT B & C. Immunohistochemistry ([id number]) supports the above diagnosis. Case has been reviewed in consultation with Dr. Sheets who concurs with the above diagnosis. IDC:SJ MICROSCOPIC DESCRIPTION Slides are reviewed. GROSS DESCRIPTION A - Received is one container designated prostate, right apex. The specimen consists of two elongated fragments of light nogueira-white soft tissue each measuring 1 cm in length and 0.1 cm in diameter. The specimen is totally submitted in one cassette. B - Received is one container designated prostate, right mid. The specimen consists of two elongated fragments of light nogueira-white soft tissue each measuring 1 cm in length and 0.1 cm in diameter. The specimen is totally submitted in one cassette. C - Received is one container designated prostate, right base. The specimen consists of two elongated fragments of light nogueira-white soft tissue each measuring 1 cm in length and 0.1 cm in diameter. The specimen is totally submitted in one cassette. D - Received is one container designated prostate, left apex. The specimen consists of two elongated fragments of light nogueira-white soft tissue each measuring 1 cm in length and 0.1 cm in diameter. The specimen is totally submitted in one cassette. E - Received is one container designated prostate, left mid. The specimen consists of two elongated fragments of light nogueira-white soft tissue each measuring 1.5 cm in length and 0.1 cm in diameter. The specimen is totally submitted in one cassette. F - Received is one container designated prostate, left base. The specimen consists of two elongated fragments of light nogueira-white soft tissue each measuring 1.5 cm in length and 0.1 cm in diameter. The specimen is totally submitted in one cassette. / AM:chio 12/02/20 TC:0 [facility]: [id number] [phone]
== END ==
PROVIDERS: PCP Internal Medicine; Referring Provider Urology; Visit Provider Urology
DX: R97.20 Elevated prostate specific antigen [PSA] (principal)
CPT/HCPCS: 88305; 88341; 88342; G0416

== ENCOUNTER → 2020-12-13 10:02 | Outpatient (CLI) | payer OTHER, SELFPAY ==
[2020-11-26 14:17] VITALS: BMI 40.6
--- NOTE | 2020-12-13 10:06 | NM_ITS ---
CLINICAL: 60-year-old male with reported history of carcinoma of the prostate. WHOLE BODY 99m Tc MDP RADIONUCLIDE BONE SCINTIGRAPHY COMPARISON: CT of the abdomen-pelvis report 11/26/2020 FINDINGS: Following the intravenous administration of 25.6 mCi of 99m Tc MDP, whole body bone images reveal: 1. A linear increase in tracer uptake is defined in the proximal-distal sternum. 2. Enhanced tracer concentration is observed in the acromioclavicular compartments of both shoulders, lower cervical spine posteriorly on the left, patellofemoral compartment of the right knee, medial tibial compartment of the left knee, right ankle, bilateral mid and forefoot, right-left wrists, hands bilaterally. 3. The remaining skeletal structures are scintigraphically unremarkable with right-left renal units and urinary bladder activity identified. The right kidney demonstrates markedly prominent collecting system activity extending from the superior-inferior pole calyces, renal pelvis and proximal-distal ureter. A presumably asymptomatic right knee arthroplasty is demonstrated with mild increased tracer uptake noted in the femoral and tibial components most consistent with normal postsurgical change. NM/Bone Scan Whole Body IMPRESSION: 1. The increase in tracer uptake defined in the proximal-distal sternum is most consistent with changes attributed to median sternotomy. Plain film radiography correlation may be of benefit. 2. Degenerative arthritis appears expressed in the bilateral shoulders, cervical spine, both knees, right ankle, right-left mid and forefoot, wrist articulations bilaterally, right-left hands. 3. There is no definitive typical scintigraphic evidence of diffuse axial skeletal metastatic disease on the current examination. Electronically Signed: Leeroy Mercedes DO at 22:38 EDT Tel , Service support ,
== END ==
PROVIDERS: PCP Internal Medicine; Referring Provider Urology; Visit Provider Urology
DX: C61 Malignant neoplasm of prostate (principal)
CPT/HCPCS: 78306

== ENCOUNTER → 2021-01-12 09:51 | Outpatient (CLI) | payer OTHER, SELFPAY ==
[2020-12-20 13:44] VITALS: BMI 40.4
[2021-01-12 10:26] LABS: Hemoglobin 15.7 g/dL (13.0-16.5); Mean Corp Hgb Conc 31.4 g/dL (32-36); Mean Corpuscular Hgb 28.8 pg (27.0-32.0); Mean Corpuscular Volume 91.7 fL (80-94); Mean Platelet Vol. 10.3 fl (6.2-12.0); Platelet Count 277 K/mm3 (150-450); RBC Distribution Width CV 13.1 % (11.6-14.6); Red Blood Count 5.45 M/mm3 (4.6-6.2); White Blood Count 7.6 K/mm3 (4.4-11.0)
[2021-01-12 10:49] LABS: Anion Gap 3 (5-15); BUN 20 mg/dL (7-18); BUN/Creat Ratio 18.2 RATIO (10-20); Calcium,Total 9.6 mg/dL (8.5-10.1); Chloride 105 mmol/L (98-107); EST Glomerular Filtration Rate 72 mL/min (>60); Est Glom Filt Rate - Afr Amer 87 mL/min (>60); Glucose 99 mg/dL (74-106); Potassium 4.8 mmol/L (3.5-5.1); Sodium Level 138 mmol/L (136-145)
== END ==
PROVIDERS: PCP Internal Medicine; Referring Provider Urology; Visit Provider Urology
DX: Z03.818 Encounter for observation for suspected exposure to other biological agents ruled out (principal); Z20.828 Contact with and (suspected) exposure to other viral communicable diseases
CPT/HCPCS: 36415; 80048; 85027; 87426; C9803

== ENCOUNTER 2021-01-18 05:46 | Day surgery (SDC) | payer OTHER, SELFPAY ==
[2020-12-20 13:44] VITALS: BMI 40.4
[2021-01-18] VITALS (10 sets, daily range): BP systolic 103–149; BP diastolic 56–83; PULSE 69–83; RESP 16–18; TEMP 36.1–37.1; O2SAT 92–99; BMI 39.7
--- NOTE | 2021-01-18 | PROST_PTH ---
PATIENT: NITISH MAC LOC: [facility] [place] U#:[id number] AGE/SX: 60/M ROOM: RE01/18/[address]: Dr. Scot Cummins MD : 1960 BED: DIS: 01/19/2021 SPEC #: [id number] RECD: 01/18/21 13:42 STATUS: YODIT REQ #: [id number] DAMIAN: 01/18/21 00:[address]: Scot Cummins DEPT: SURGICAL PATHOLOGY RECD BY: Tariq Chiu ENTERED: 01/19/21 08:40 SP TYPE: PROSTATE OTHR DR: Dr. Goldie Kohler, DO Tissues: D - Prostate, NOS A - Lymph node of pelvis, NOS B - Lymph node of pelvis, NOS C - Adipose tissue Procedures: Surgery Specimen Level IV Surgery Specimen Level V Surgery Specimen Level HEADER OPERATION: Lap robotic radical prostatectomy, nerve sparing PRE-OP DIAGNOSIS: Prostate cancer TISSUE SUBMITTED: A ? Left pelvic lymph node, B ? Right pelvic lymph node, C ? Fat over prostate, D - Prostate MICROSCOPIC DIAGNOSIS A. Left pelvic node: Two out of two lymph nodes, negative for metastatic carcinoma. B. Right pelvic node: Two out of two lymph nodes, negative for metastatic carcinoma. C. Fat over prostate: Negative for carcinoma. D. Prostate, radical prostatectomy: Prostatic adenocarcinoma. See cancer summary in the comment section. SJ:chio 01/23/2021 COMMENT PROSTATE CANCER (RADICAL) SUMMARY: Procedure: Radical Prostatectomy Prostate Size: Weight: 52 gm Size: 4 cm transversely, 3.5 cm anterior-posteriorly and 4 cm craniocaudally Histologic type: Acinar adenocarcinoma Histologic grade: Group 2, Nellie score 3+4=7 Tumor Quantitation ? estimated percentage of prostate involved by tumor ~20% Extraprostatic Extension: Not identified Urinary Bladder Neck Invasion: Not identified Seminal Vesicle Invasion: Not identified Lymphvascular Invasion: Not identified Perineural Invasion: Present Margins: Focally involved by invasive carcinoma Multifocal Location of positive margin: apical margin and left lateral margin Nellie pattern at positive margin: Pattern 3 Linear length of positive margin: 0.6 cm in greatest dimension at the apical margin Treatment Effect: No known presurgical therapy. Regional Lymph Nodes: Number of lymph nodes involved: 0 Number of Lymph Nodes Examined: 4 Distant metastasis: Not applicable Additional Pathologic Findings: Focal high-grade prostatic intraepithelial neoplasia (HGPIN). - Chronic inflammation. PATHOLOGIC STAGE: pT2 pN0 pMx The above summary is in compliance with [employer] [place] Pathology (CAP) Cancer Protocols Checklist and [place] Joint Committee on Cancer (AJCC), Staging Manual, 8th Ed. Tumor involves both right and left lobes. The tumor in the right lobe involves apical, mid portion and basal portion, focally present in discontinuous manner and measures approximately 3 x 1.1 x 0.7 cm. Tumor in the left lobe involves apical and mid portion, focally present in discontinuous manner and measures approximately 2 x 2 x 1.5 cm. Please make reference to previous specimen ([id number]) right prostate, apex, right prostate, mid and left prostate, apex, left prostate, mid and left prostate, base with diagnosis of adenocarcinoma. MICROSCOPIC DESCRIPTION Slides are reviewed. GROSS DESCRIPTION A - Received in fixative is one container labeled with the patient's name and designated left pelvic lymph node. The specimen consists of multiple pieces of yellow adipose tissue that in aggregate measure 2.5 x 2.5 x 0.3 cm. A focal indurated area is noted, possible lymph nodes. The entire specimen is submitted in one cassette. B - Received in fixative is one container labeled with the patient's name and designated right pelvic lymph node. The specimen consists of a piece of adipose tissue measuring 2.5 x 2.5 x 0.3 cm. One lymph node is identified measuring 1 cm in greatest dimension. One smaller possible lymph node also present measuring 0.2 cm in greatest dimension. The entire specimen is submitted in two cassettes as follows: 1 ? one bisected lymph node, 2 ? rest of the specimen with smaller possible lymph node. C - Received in fixative is one container labeled with the patient's name and designated fat over prostate. The specimen consists of multiple pieces of yellow adipose tissue that in aggregate measure 4 x 2 x 0.5 cm. No mass lesion is identified. he entire specimen is submitted in two cassettes. D - Received in fixative is one container labeled with the patient's name and designated prostate. The specimen consists of a radical prostatectomy specimen consisting of prostate with bilateral seminal vesicles and vas deferens. The specimen weighs 52 gm. The prostate measures 4 cm transversely, 3.5 cm anterior-posteriorly and 4 cm craniocaudally. The right seminal vesicle measures 2.5 x 1 x 1 cm and right vas deferens measures 3 cm in length and up to 0.5 cm in diameter. The left seminal vesicle measures 3 x 1.5 x 1 cm and the left vas deferens measures 3 cm in length and up to 0.6 cm in diameter. The prostate is inked as follows: anterior surface - yellow, posterior surface - black, right lateral surface - blue, left lateral surface - green. The bilateral seminal vesicles and vas deferens are inked as follows: Posterior surface - black, anterior surface right seminal vesicle and vas deferens - blue and anterior left seminal vesicle and vas deferens - green. Sections of the prostate do not reveal any obvious mass lesion. Vat Operator sections are submitted in 20 cassettes as follows: 1 - right seminal vesicle and vas deferens, 2 - left seminal vesicle and vas deferens 3 - apical (urethral) margin, enface, 4 & 5 - bladder base margin and most basal portion of prostate, enface, 6-10 - apical portion prostate, 11-14 - middle portion prostate, 15-20 - basal portion prostate. Sections will be submitted after overnight fixation. More than 95% of the prostate is submitted. / ABBEY:chio 01/19/21 TC:0 CPT: 38853, 16263 x2, 36310
[2021-01-18] MEDS: Lactated Ringers 1,000 ML 100 ML IV (06:10)
--- NOTE | 2021-01-18 07:24 | PCM.HP.STD ---
[facility] - General General Date of Admission: 03/04/20 HPI Narrative NITISH MAC, is a 60 M who presents for a radical prostatectomy, with bilateral nerve sparing, has a history of prostate cancer [place] 7 4+3, bilateral disease. PSA was 6.3. He has intermediate favorable disease and we will proceed with a radical prostatectomy. [facility] [place] [place] Medical History (Updated 01/11/21 @ 10:09 by Cheryl Reddy) ADHD (attention deficit hyperactivity disorder) Arthritis Back pain Edema Essential hypertension Fatty infiltration of liver GERD (gastroesophageal reflux disease) Gout Hx of echocardiogram (~08/22/20) Hyperlipidemia Kidney stones Nonrheumatic aortic (valve) insufficiency SAPPHIRE on CPAP Osteoarthritis Paroxysmal atrial fibrillation Pericardial effusion Preop cardiovascular exam Prostate cancer Reactive airway disease Shortness of breath on exertion Thoracic aortic aneurysm without rupture Wears hearing aid in both ears Home Medications aspirin 81 mg PO DAILY 03/02/20 [History Last Taken 01/10/21] atenolol 25 mg PO DAILY 03/02/20 [History Last Taken 01/17/21 21:00] cholecalciferol (vitamin D3) 250 mcg PO DAILY 03/02/20 [History Last Taken 01/17/21 21:00] simvastatin 20 mg PO DAILY 03/02/20 [History Last Taken 01/17/21 21:00] vitamin E (dl, acetate) 400 units PO DAILY 03/02/20 [History Last Taken 01/17/21 21:00] allopurinol 100 mg tablet 100 mg PO DAILY tablet 12/20/20 [History Last Taken 01/17/21 21:00] vilazodone [Viibryd] 40 mg PO DAILY 01/11/21 [History Last Taken 01/17/21 21:00] Allergy/AdvReac Type Severity Reaction Status Date / Time Penicillins Allergy Anaphylaxis Verified 01/18/21 06:41 hydromorphone [From Dilaudid] AdvReac PT UNSURE Verified 01/18/21 06:41 OF REACTION Family History Mother Cancer kidney Breast cancer Father Myocardial infarction, Onset Age: 55 Alzheimer's disease Surgical History (Updated 01/11/21 @ 10:20 by Cheryl Reddy) History of aortic valve repair (05/09/20) History of ascending aortic replacement (05/09/20) History of extraction of renal calculus History of intraocular lens implant History of left heart catheterization (05/04/20) History of open reduction and internal fixation (ORIF) procedure History of total right knee replacement (~2017) Hx of ascending aorta repair Social History (Updated 12/20/20 @ 14:[address] Naomie Orourke MD) Smoking Status: Never smoker alcohol intake: former year quit: 1999 substance use type: does not use caffeine: Yes Type: coffee Number of servings: 2 ROS Constitutional Constitutional: Denies chills, fever(s) or malaise Eyes Eyes: Denies blurry vision or change in vision ENT HEENT: Reports none Cardiovascular Cardiovascular: Denies chest pain or palpitations Respiratory/Chest Respiratory/Chest: Denies cough or shortness of breath with exertion Gastrointestinal Gastrointestinal: Denies abdominal pain, constipation or diarrhea Musculoskeletal Musculoskeletal: Denies back pain, joint stiffness or joint swelling Integumentary Integumentary: Denies dry skin, jaundice, lesions or rash Neurologic Neurologic: Denies confusion, syncope or weakness Psychiatric Psychiatric: Reports none; Denies anxiety or depression Endocrine Endocrinology: Denies excessive sweating, fatigue or flushing Hematologic/Lymphatic Hematologic/Lymphatic: Denies anemia, easy bleeding or easy bruising Vital Signs Vital Signs Vital Signs: 01/18/21 06:10 Temperature 97.0 F L Temperature Source Temporal Pulse Rate 70 Respiratory Rate 18 Respiratory Pattern Normal Blood Pressure 149/83 H Blood Pressure Mean 105 Blood Pressure Source Monitor Blood Pressure Position Sitting Blood Pressure Location Right Arm Pulse Ox 96 Oxygen Delivery Method Room Air Physical Exam Const alert and oriented x3 General Appearance: cooperative HEENT normocephalic, head/scalp atraumatic, EAC's normal and TM's normal bilaterally Eyes PERRL and EOMs intact bilaterally Pupil: sluggish Neck no lymphadenopathy, supple and no JVD General: trachea midline Lymph Lymphatic: no lymphadenopathy noted, lymphedema and lymphadenopathy Resp normal respiratory effort, normal air movement and clear to auscultation bilaterally Cardio regular rate, regular rhythm and peripheral pulses 2+ throughout GI soft to palpation, non-tender and non-distended Extremity normal capillary refill and no clubbing, cyanosis or edema General Extremity: no tenderness to palpation of joints or extremities Skin no rashes or lesions noted General Skin Exam: turgor normal Lesions: no lesions Rashes: no rashes Neuro CN's II-XII intact bilaterally Speech: speech normal Motor Exam: strength 5/5 throughout; Negative for general weakness Psych thought process normal, cooperative and affect normal Appearance: appropriate Lab / Micro Data Labs: Laboratory Results - last 24 hr 01/17/21 08:00 COVID-19 (LARRY) Not Detected Assessment & Plan Assessment/Plan (1) Prostate cancer: Status: Acute Code(s): C61 - Malignant neoplasm of prostate Plan: 60-year-old male with prostate cancer, plan to proceed with radical prostatectomy bilateral nerve sparing. Also he had a stent placed a recent kidney stone will remove the stent during the procedure. All the patient questions were addressed before surgery. In the office we talked about the implications of the surgery understands the risk of losing erections working to do her best to try to spare nerves for erections but also relies that he does have intermediate, high-volume prostate cancer and nerve sparing a may not be possible that may lead to erectile dysfunction we also talked about the possibility of having temporary or permanent stress urinary incontinence after surgery we talked about the healing after that.
[2021-01-18] MEDS: Lactated Ringers 1,000 ML 150 ML IV ×3 (07:35→23:45)
--- NOTE | 2021-01-18 07:41 | PCM.DC ---
Discharge Instructions Outpatient Procedure Reason For Visit: LAP ROBOTIC RADICAL PROSTATECTOMY Procedure: Urology Diet Discharge Diet: Soft diet Activity Discharge Activity: May Not Drive Return to work on:: 02/22/21 May shower in (days): 2 May resume sexual activity in: 6-8 weeks Lifting Restrictions: No LIfting more than 10 lbs for 6 weeks. Dressing / Incision Call your doctor if your incision/area has: Continuous Slow Oozing, Sudden Increased Bleeding, Increased Pain/ Swelling, Increased Redness, Foul Smelling Discharge and Swelling at the incision site Call your doctor if you observe: Fever of 101 or Higher, Inability to urinate, Inability to have a bowel movement and Uncontrolled pain Suture Line Care: Avoid Pulling/Pushing and Avoid Pinching/Bending Cleanse incision/area with: Soap & Water Catheter: Taylor to leg bag and Taylor to large bag Additional Dressing/Incision Instructions:: Home with taylor to leg bag, taylor care teaching. Follow Up Care Please Follow Up With: Scot Cummins MD When: Call [phone] for an appointment Need to see patient in two weeks for a follow up. Test Results: Test results from this visit will be discussed in further detail at your follow-up appointment, if applicable. Discharge Plan Admission Primary Reason for Your Visit: Robotic radical prostatectomy Attending Provider: Scot Cummins Primary Care Provider: Goldie Kohler Instructions Patient Instructions: Radical Prostatectomy Discharge Orders/Prescriptions Prescriptions: New oxycodone-acetaminophen [Endocet] 5-325 mg tablet 1 tab PO Q4H PRN (Reason: pain) 7 Days Qty: 14 RF: 0 docusate sodium [Colace] 100 mg capsule 100 mg PO BID Qty: 20 RF: 0 ciprofloxacin HCl [Cipro] 500 mg tablet 500 mg PO BID Qty: 20 RF: 0 Continued allopurinol 100 mg tablet 100 mg PO DAILY RF: 0 atenolol 25 MG tablet 25 mg PO DAILY RF: 0 aspirin 81 MG tablet,delayed release (DR/EC) 81 mg PO DAILY RF: 0 simvastatin 20 MG tablet 20 mg PO DAILY RF: 0 vitamin E (dl, acetate) 400 UNITS capsule 400 units PO DAILY RF: 0 cholecalciferol (vitamin D3) 250 MCG tablet 250 mcg PO DAILY RF: 0 Viibryd 20 mg Tablet 40 mg PO DAILY RF: 0 Referrals: Goldie Kohler DO [Primary Care Provider] - Scot Cummins MD [STAFF PHYSICIAN] -
[2021-01-18] MEDS: Bupivacaine Mpf 0.5% 30 ML VIAL (11:40)
--- NOTE | 2021-01-18 11:46 | OP.PCM_ITS ---
Problems Associated Problem List Diagnoses (1) Prostate cancer: Report of Operation Date of Procedure: 01/18/21 Pre-Operative Diagnosis: Prostate cancer Post-Operative Diagnosis: Same Surgery/Procedure Performed:: Laparoscopic robotic assisted radical prostatectomy with bilateral nerve sparing, bilateral pelvic lymph node dissection. Description of Surgical Findings:: Surgeon Dr. Cummins Patient presented to the hospital for treatment of his prostate cancer with radical prostatectomy. In the preoperative setting we discussed the options of management for his prostate cancer including active surveillance, radiation treatments, radioactive seeds, and radical robotic prostatectomy. We discussed the side effects of surgery including the potential to lose erections. We discussed the potential to have bladder control problems with stress incontinence which can be temporary or permanent. We discussed the risk of the surgery including the risk of general anesthetic, risk of bleeding, risk of infection, and risk of formation of hernia either incisional hernia or inguinal hernia. After long discussion with the patient the preoperative setting and also reviewed this in the preop area patient signed the consent form and we proceeded with a radical prostatectomy. Patient was taken back to the operating room he was identified, time out procedure was performed and he was placed supine on the table he underwent general anesthesia with intubation. The abdomen was shaved prepped and draped in usual sterile fashion as well as the penis and testicles. A 16 [place] catheter was placed into the bladder with clear return of urine. I then made an incision in the umbilicus and dissected down to the fascia advance a Veress needle into the peritoneal cavity and insufflated the peritoneal cavity with CO2 gas. I then placed a 12 mm trocar above the umbilicus. I then visualized the placement of the rest of the trochars, I placed a right arm robotic trocar, and air seal trocar, a suction port 5 mm trocar. And on the left side I placed 2 robotic arms. Once all the trochars were in placed the patient was put in steep Trendelenburg. And the robot was docked the arms were docked and then I placed the 0 degree camera through the robotic arm and also used a 30 degree camera during certain parts of the case. I used scissors in the right arm, prograsp in the third arm, and a bipolar in the second arm. Initial dissection was to free the sigmoid colon off the lateral wall this was done by meticulously dissecting off the peritoneum and the sigmoid colon off the left lateral wall. This then allowed the prograsp to retract the sigmoid colon out of the pelvis. I then went below the bladder and identified the vas deferens incised the peritoneum over the vas deferens and traced the vas deferens below the bladder to the prostate and identified the right and left vasa deferens. Below behind the vas deferens then the seminal vesicles were identified. I then dissected the seminal vesicle free using pinpoint electrocautery and then we identified the other seminal vesicle and then dissected this using pinpoint electrocautery I then elevated the vas deferens and several vesicles off the prostate and was able to sweep the Denonvilliers' fascia off the prostate posteriorly all the way up to the apex of the prostate. Working laterally I made sure I went as lateral as possible to sweep the Denonilliers' fascia off the posterior aspect of the prostate and worked my way back, I then transected the vas deferens and the left and right side the seminal vesicles were then dissected free. And then I pulled out of the pelvis. At this point the bladder was dropped creating the space of Retzius with the bladder on traction with the fourth arm. Using electrocautery I dissected in the anterior peritoneal fascia and then created the space of Retzius dissecting towards the prostate. The prostate was then cleaned of the fat over the prostate and the fourth arm was used to retract the bladder and place traction. I then identified the endopelvic fascia that was overlying the prostate on the right side I incised endopelvic fascia and wwept the levator muscles off the prostate all the way to the apex on the right side, I then worked my way anterior to the prostate then transected to the puboprostatic ligament and the underlying dorsal vein complex was not injured. I then went to the other side and identified the endopelvic fascia in the left side incised in a fashion the left side and swept the levator muscles off the prostate on the left side all the way up to the apex the puboprostatic ligament on the left side was then dissected and transected I then freed up the fascia overlying the dorsal vein complex. I then used the prograsp to encircled the dorsal vein complex with the prograsp and then switched over to the right and left needle jukebox route driver and suture ligated the dorsal vein complex above the prograsp. The prograsp was then placed back in the bladder and put back on traction I then identified the junction between the bladder and the prostate and dissected down between the bladder and the prostate untilI came across the catheter we then dissected posteriorly to the bladder and prostate to free the prostate and the bladder off each other and the muscles between the bladder and the prostate was then cauterized to free up the bladder. I then went on top of the prostate and identified the endopelvic fascia on top of the prostate this was incised all the way to the apex and then we swept the endopelvic fascia off the prostate laterally and then identified the plane between endopelvic fascia and the prosthetic pseudocapsule and swept the fascia laterally until reaching the course of the neurovascular bundles and then released the neurovascular bundles off the prostate laterally all the way back in a retrograde fashion back to the junction of the pedicles then the prostate was placed on traction with the fourth arm pulling the prostate laterally identified the pedicle to the prostate between the seminal vesicles and the and the neurovascular bundle and this was taken using sequential small hemolocks. After the pedicle was taken the I then dissected underneath the prostate sweeping the neurovascular bundle off the prostate we able to follow the nice smooth plane between the neurovascular bundle and the pseudocapsule all the way to the apex once this was identified we swept this up all the way up to the apex and there was perfect nerve sparing on the right side. Then went to the left side the prostate identified the endopelvic fascia over the left side of the prostate I incised the endopelvic fascia all the way to the apex and then swept this off laterally I then released the neurovascular bundles on the left side of the prostate sweeping him off the prostate laterally I then elevated the prostate up up with the prostate and traction identified the pedicle to the prostate on the left side and then the pedicles taken with sequential Hem-o-irving clips I then was able to dissected the neurovascular bundle off the left posterior aspect the prostate this was a perfect dissection all the way up on the left side following the pseudocapsule all the way up the left side until we reached the apex of the prostate. After the both the neurovascular bundles has been swept off the posterior to the prostate I then went above and transected the dorsal vein complex there was minimal to no bleeding but then dissected down to the urethra and circumfencial dissected around the urethra I then switched the right and le ft arm with the needle drivers and I suture-ligated the dorsal vein complex again just to ensure that there was no bleeding from the dorsal vein complex. I then transected through the urethra with scissors and the prostate was then freed and released off the prostate bed and put an Endo Catch bag. At this point the bladder neck was reconstructed and then an anastomosis was performed between the prostate and the bladder with a 3 oh V-Loc stitch in a running fashion starting from the bladder neck at the 6 o'clock position working to the 12 o'clock position with continuous stitches to complete a perfect anastomosis between the bladder and the prostate. I then placed a new catheter into the bladder, an [address] [place] [address] croix tip catheter flushed the bladder and there was no leakage from the anastomosis I put 10 cc in the balloon and pulled it up pulled back gently. I then ensured that there was no bleeding from the dorsal vein complex no bleeding from the neurovascular bundles FloSeal was placed as necessary once hemostasis was ensured and adequate then I placed the bladder back in position in the pelvis the prostate was exchanged to the camera port I closed the air seal port with a 10 12 [place] Lafleur stitch. And the extracted the prostate through the umbilicus. The robot was undocked all the ports were removed under direct visualization then closed the extraction site with 0 Vicryl with a CT1 needle once the extraction site was closed. I then closed all the incision with subcuticular stitches with 4-0 Monocryl and then bandages were placed on the incisions catheter was flushed to make sure it was draining well there was no clots and it was crystal clear patient's anesthetic was reversed he was extubated and taken back to the PACU in stable condition all the needles and sponges and instruments were accounted for. Blood loss was minimal and the drain was a 18 [place] Salcedo catheter. No other surgical drain was left. I was present during the entire case. Type of Anesthesia: General Anesthesiologist: Albert Burciaga Specimen's removed: prostate and lymph nodes Drains: Salcedo Estimated Blood Loss (mL): 250 cc Complications none Admit VTE Documentation VTE Present on Admission: No VTE Mechan Device Prophylaxis: SCD's
[2021-01-18 12:42] LABS: Hematocrit 44.9 % (40-54); Hemoglobin 14.1 g/dL (13.0-16.5); Mean Corp Hgb Conc 31.4 g/dL (32-36); Mean Corpuscular Hgb 28.5 pg (27.0-32.0); Mean Corpuscular Volume 90.7 fL (80-94); Mean Platelet Vol. 9.9 fl (6.2-12.0); Platelet Count 221 K/mm3 (150-450); RBC Distribution Width CV 12.8 % (11.6-14.6); RBC Distribution Width SD 42.1 fl (35.1-43.9); Red Blood Count 4.95 M/mm3 (4.6-6.2); White Blood Count 11.4 K/mm3 (4.4-11.0)
[2021-01-18 12:55] LABS: Anion Gap 5 (5-15); BUN 19 mg/dL (7-18); Calcium,Total 8.8 mg/dL (8.5-10.1); Chloride 107 mmol/L (98-107); Glucose 168 mg/dL (74-106); Potassium 4.1 mmol/L (3.5-5.1); Sodium Level 139 mmol/L (136-145)
[2021-01-18 14:38] LABS: BUN/Creat Ratio 23.5 RATIO (10-20); Creatinine, Serum 0.81 mg/dL (0.70-1.30); EST Glomerular Filtration Rate 103 mL/min (>60); Est Glom Filt Rate - Afr Amer 125 mL/min (>60); Estimated Creatinine Clearance 97.63 ml/min
[2021-01-18] MEDS: Ciprofloxacin 400 MG/200 ML BAG 200 MG IV (15:43)
[2021-01-18] MEDS: Ketorolac 15 MG/ML Vial IV ×2 (15:43→21:02)
[2021-01-18] MEDS: Atorvastatin Calcium 10 MG Tablet PO (21:03)
[2021-01-19 03:50] VITALS: BP 127/62; PULSE 71; RESP 18; TEMP 36.7; O2SAT 96
[2021-01-19] MEDS: Ketorolac 15 MG/ML Vial IV ×2 (03:53→09:27)
[2021-01-19] MEDS: Ciprofloxacin 400 MG/200 ML BAG 200 MG IV (03:54)
[2021-01-19 05:55] LABS: Hematocrit 39.3 % (40-54); Hemoglobin 12.9 g/dL (13.0-16.5); Mean Corp Hgb Conc 32.8 g/dL (32-36); Mean Corpuscular Hgb 29.6 pg (27.0-32.0); Mean Corpuscular Volume 90.1 fL (80-94); Mean Platelet Vol. 9.7 fl (6.2-12.0); Platelet Count 205 K/mm3 (150-450); RBC Distribution Width CV 12.7 % (11.6-14.6); RBC Distribution Width SD 41.6 fl (35.1-43.9); Red Blood Count 4.36 M/mm3 (4.6-6.2); White Blood Count 11.2 K/mm3 (4.4-11.0)
[2021-01-19 06:17] LABS: Anion Gap 3 (5-15); BUN 16 mg/dL (7-18); BUN/Creat Ratio 17.1 RATIO (10-20); Calcium,Total 8.6 mg/dL (8.5-10.1); Chloride 107 mmol/L (98-107); Creatinine, Serum 0.94 mg/dL (0.70-1.30); EST Glomerular Filtration Rate 87 mL/min (>60); Est Glom Filt Rate - Afr Amer 105 mL/min (>60); Estimated Creatinine Clearance 84.13 ml/min; Glucose 115 mg/dL (74-106); Potassium 4.2 mmol/L (3.5-5.1); Sodium Level 140 mmol/L (136-145)
[2021-01-19] MEDS: Lactated Ringers 1,000 ML 150 ML IV (06:19)
--- NOTE | 2021-01-19 06:20 | PCM.PN.GU ---
Subjective Subjective: doing well sleeping, no complaints urine clear Objective Data Objective Data Vital Signs: Vital Signs Temp Pulse Resp BP Pulse Ox 98.1 F 71 18 127/62 H 96 01/19/21 03:50 01/19/21 03:50 01/19/21 03:50 01/19/21 03:50 01/19/21 03:50 Oxygen Flow Rate (L/min) 2 Oxygen Delivery Method Room Air Weight: 125.6 kg Body Mass Index (BMI) 39.7 Intake & Output: Intake and Output for Last 24 Hours 01/17/21 01/18/21 01/19/21 23:59 23:59 23:59 Intake Total 3925 / 4325 1585 / 1585 Output Total 605 / 1430 825 / 825 Balance 3320 / 2895 760 / 760 Lab / Micro Data Result Diagrams: 01/19/21 05:40 01/19/21 05:40 Labs: Laboratory Results - last 24 hr 01/18/21 01/18/21 01/19/21 12:30 12:30 05:40 WBC 11.4 H 11.2 H RBC 4.95 4.36 L Hgb 14.1 12.9 L Hct 44.9 39.3 L MCV 90.7 90.1 MCH 28.5 29.6 MCHC 31.4 L 32.8 RDW Std Deviation 42.1 41.6 RDW Coeff of Chante 12.8 12.7 Plt Count 221 205 MPV 9.9 9.7 Sodium 139 Potassium 4.1 Chloride 107 Carbon Dioxide 27.0 Anion Gap 5 BUN 19 H Creatinine 0.81 Estim Creat Clear Calc 97.63 Est GFR (MDRD) Af Amer 125 Est GFR (MDRD) Non-Af 103 BUN/Creatinine Ratio 23.5 H Glucose 168 H Calcium 8.8 01/19/21 05:40 WBC RBC Hgb Hct MCV MCH MCHC RDW Std Deviation RDW Coeff of Chante Plt Count MPV Sodium 140 Potassium 4.2 Chloride 107 Carbon Dioxide 30.0 Anion Gap 3 L BUN 16 Creatinine 0.94 Estim Creat Clear Calc 84.13 Est GFR (MDRD) Af Amer 105 Est GFR (MDRD) Non-Af 87 BUN/Creatinine Ratio 17.1 Glucose 115 H Calcium 8.6 Physical Exam Const alert and oriented x3 General Appearance: cooperative HEENT normocephalic, head/scalp atraumatic, EAC's normal and TM's normal bilaterally Eyes PERRL and EOMs intact bilaterally Pupil: sluggish Neck no lymphadenopathy, supple and no JVD General: trachea midline Lymph Lymphatic: no lymphadenopathy noted, lymphedema and lymphadenopathy Resp normal respiratory effort, normal air movement and clear to auscultation bilaterally Cardio regular rate, regular rhythm and peripheral pulses 2+ throughout GI soft to palpation, non-tender and non-distended Extremity normal capillary refill and no clubbing, cyanosis or edema General Extremity: no tenderness to palpation of joints or extremities Skin no rashes or lesions noted General Skin Exam: turgor normal Lesions: no lesions Rashes: no rashes Neuro CN's II-XII intact bilaterally Speech: speech normal Motor Exam: strength 5/5 throughout; Negative for general weakness Psych thought process normal, cooperative and affect normal Appearance: appropriate Assessment & Plan Assessment/Plan (1) Prostate cancer: PLAN: home with taylor to leg bag.
[2021-01-19 07:28] VITALS: O2SAT 95
[2021-01-19 09:15] VITALS: BP 148/73; PULSE 69; RESP 16; TEMP 37; O2SAT 97
[2021-01-19] MEDS: Atenolol 25 MG Tablet PO (09:26)
[2021-01-19] MEDS: VILAZODONE HYDROCHLORIDE 10 MG TABLET 40 MG PO (09:26)
[2021-01-19] MEDS: Allopurinol 100 MG Tablet PO (09:27)
[2021-01-19 09:50] VITALS: BP 148/73; PULSE 69; RESP 16; TEMP 37; O2SAT 97
== END 2021-01-19 14:39 | disposition home or self-care (01) ==
LOC: SDC 05:47 → AC 05:48 → MS3 14:29
PROVIDERS: PCP Internal Medicine; Referring Provider Urology; Visit Provider Urology
PROC: 0VT04ZZ Resection of Prostate, Percutaneous Endoscopic Approach (ICD-10-PCS; CPT 55866; principal; 2021-01-18 07:10)
DX: C61 Malignant neoplasm of prostate (principal); K21.9 Gastro-esophageal reflux disease without esophagitis; G47.33 Obstructive sleep apnea (adult) (pediatric); M19.90 Unspecified osteoarthritis, unspecified site; I48.0 Paroxysmal atrial fibrillation; E78.5 Hyperlipidemia, unspecified; I10 Essential (primary) hypertension; Z79.82 Long term (current) use of aspirin; Z79.899 Other long term (current) drug therapy; M10.9 Gout, unspecified; K76.0 Fatty (change of) liver, not elsewhere classified
CPT/HCPCS: 00865; 55866; 36415; 80048; 85027; 87635; 88304; 88305; 88307; 88309; 99251; C9803; J7120; A4216; G0463; J0744; J2405; U0002

== ENCOUNTER → 2021-03-09 10:48 | Outpatient (CLI) | payer OTHER, SELFPAY ==
[2021-01-18 06:10] VITALS: BMI 39.7
[2021-03-09 12:06] LABS: PSA,Total- Diagnostic < 0.01 ng/mL (0.0-4.0)
== END ==
PROVIDERS: PCP Internal Medicine; Visit Provider Urology
DX: C61 Malignant neoplasm of prostate (principal)
CPT/HCPCS: 36415; 84153

== ENCOUNTER → 2021-04-27 07:46 | Outpatient (CLI) | payer OTHER, SELFPAY ==
[2021-01-18 06:10] VITALS: BMI 39.7
--- NOTE | 2021-04-27 07:48 | ECHOD_ITS ---
Reason For Study: EDEMA Procedure This was a 2D Doppler, Color Flow transthoracic echocardiogram. The study was technically difficult. Exam performed in department. Left Ventricle Based upon the 2D echocardiographic images obtained appears to be grossly normal left ventricular size, wall motion, and systolic function. The estimated ejection fraction is 55 %. Diastolic function is indeterminate. Right Ventricle Normal size and thickness. Normal systolic function. Atria The left atrium is mildly enlarged. Normal right atrium. No doppler evidence for ASD. Mitral Valve There is no mitral annular calcification. Normal mitral valve. Mild (1+) mitral valve insufficiency. Tricuspid Valve Normal tricuspid valve. Trivial tricuspid valve insufficiency. Right ventricular systolic pressure estimated to be 27 mmHg. Aortic Valve The aortic valve is not well visualized. Mild focal aortic valve thickening. Pulmonic Valve The pulmonic valve is not well visualized. Mild (1+) pulmonic valve insufficiency. Great Vessels Normal sized aortic root. Pericardium/Pleural No pericardial effusion. MMode/2D Measurements & Calculations LVIDd: 4.6 cm IVSd: 1.1 cm Ao root diam: 3.0 cm LVIDs: 3.0 cm LVPWd: 1.2 cm FS: 34.7 % LAV(MOD-bp): 58.4 ml LA A4 area: 19.2 cm2 LA dimension(2D): 4.6 cm LAV(MOD-bp) Indexed: 24.2 ml/m2 LAV(MOD-sp2): 58.3 ml LAV(MOD-sp4): 58.9 ml RA A4 area: 17.4 cm2 Time Measurements MV dec time: 0.23 sec Doppler Measurements & Calculations MV E max james: 100.6 cm/sec Lat Peak E' James: 8.8 cm/sec Med Peak E' James: 6.3 cm/sec MV A max james: 87.0 cm/sec E/E' lat: 11.5 E/E' med: 16.1 MV E/A: 1.2 Ao V2 max: 161.8 cm/sec LV V1 max: 104.3 cm/sec PA V2 max: 100.5 cm/sec Ao max P.5 mmHg LV V1 max P.3 mmHg PI end-d james: 130.2 cm/sec TR max james: 244.6 cm/sec PI dec slope: 90.9 cm/sec2 TR max P.9 mmHg ECHO/Echo Complete Interpretation Summary The study was technically difficult. Based upon the 2D echocardiographic images obtained appears to be grossly serafin l left ventricular size, wall motion, and systolic function. The estimated ejection fraction is 55 %. The left atrium is mildly enlarged. Mild (1+) mitral valve insufficiency. Trivial tricuspid valve insufficiency. The aortic valve is not well visualized. Mild focal aortic valve thickening. Mild (1+) pulmonic valve insufficiency. Right ventricular systolic pressure estimated to be 27 mmHg. Diastolic function is indeterminate. Ordering Physician: Goldie Kohler Referring Physician: Goldie Kohler Performed By: Ana Veliz, RITCHIE, RVT
== END ==
PROVIDERS: PCP Internal Medicine; Referring Provider Internal Medicine; Visit Provider Internal Medicine
DX: R60.9 Edema, unspecified (principal); R60.0 Localized edema
CPT/HCPCS: 93306

== ENCOUNTER → 2021-06-12 09:18 | Outpatient (CLI) | payer OTHER, SELFPAY ==
[2021-06-12 10:39] LABS: PSA,Total- Diagnostic < 0.01 ng/mL (0.0-4.0)
== END ==
PROVIDERS: PCP Internal Medicine; Referring Provider Urology; Visit Provider Urology
DX: C61 Malignant neoplasm of prostate (principal)
CPT/HCPCS: 36415; 84153

== ENCOUNTER → 2021-07-25 09:12 | Outpatient (CLI) | payer OTHER, SELFPAY ==
--- NOTE | 2021-07-25 09:20 | CR.HP_ITS ---
CR - History & Physical - General Arrival date:: 07/25/21 Arrival time:: : Date of Referral:: 07/14/21 Date of CR Evaluation:: 07/25/21 Referring Physician: Dr. Jonah Solitario Primary Diagnosis: Heart Valve Repair - History of Present Cardiac Event Onset Date: Enter Onset Date of cardiac illnesses in Comment field below Heart valve replacement or repair:: Yes - Heart Valve Repair, Aortic Root/ascending aorta repair Type of Symptoms:: Shortness of breath with activity. - Sleep Disorder Evaluation Hx of Sleep Apnea: Yes Do you snore loudly (louder than talking or can be heard through closed doors)?: Yes - Patient precviously diagnosed with SAPPHIRE and has a home BiPAP unit Do you often feel tired/ fatigued/ sleepy during daytime?: No Has anyone observed you stop breathing during sleep?: Yes History of Hypertension (for STOP score): Yes STOP Results: Positive - Medications Home Medications: Ambulatory Orders Medication Instructions Recorded aspirin 81 mg PO DAILY 03/02/20 atenolol 25 mg PO DAILY 03/02/20 simvastatin 20 mg PO DAILY 03/02/20 vitamin E (dl, acetate) 400 units PO DAILY 03/02/20 allopurinol 100 mg tablet 100 mg PO DAILY tablet 12/20/20 Viibryd 40 mg PO DAILY 01/11/21 cholecalciferol (vitamin D3) 25 25 mcg PO DAILY 07/14/21 mcg (1,000 unit) tablet - Allergies Allergies/Adverse Reactions: Allergies Penicillins Allergy (Verified 07/14/21 13:29) Anaphylaxis hydromorphone [From Dilaudid] Adverse Reaction (Verified 07/14/21 13:29) PT UNSURE OF REACTION Advanced Directives - Advanced Directives Power of Materials Planning Analyst: Yes Living Will: Yes Advance Directives Information Provided: No Advance Directives on File: Yes DNR Order?:: No - MOLST See MOLST form: No Past Medical History - Covid-19 Screening Fever: No Unexplained muscle aches: No Current respiratory symptoms: No Upper respiratory infections symptoms: No Gastro-intestinal symptoms: Yes - GERD [id number] symptoms: Yes - BIlateral hearing loss requiring bilateral hearing aids Has tested positive for COVID-19 in last 30 days: No Date of testin07/06/21 - BuzzStarter dual vaccine completed Had contact w/person w/symptoms or Covid-19 (+) last 14 days: No Has High Risk Exposures ID'd by Health dept/Inf Control team: No 65 years or older:: No Lives in Assisted Living facility:: No Has a chronic lung disease or moderate to severe asthma:: No Has a serious heart condition:: No Immunocompromised:: Yes Severely obese (Body Mass Index of 40 or higher):: Yes Diabetic:: No Has chronic kidney disease undergoing dialysis:: No Has liver disease:: No - Past Medical Illness Medical History: Past Medical History (Last Reviewed 07/14/21 @ 13:31 by Yamila Lassiter) ADHD (attention deficit hyperactivity disorder) F90.9 Arthritis M19.90 Back pain M54.9 Edema R60.9 RAJANI FEET, ANKLES Essential hypertension I10 Fatty infiltration of liver K76.0 GERD (gastroesophageal reflux disease) K21.9 Gout M10.9 Hx of echocardiogram Onset Date: ~08/22/20 Z92.89 Hyperlipidemia E78.5 Kidney stones N20.0 Nonrheumatic aortic (valve) insufficiency I35.1 SAPPHIRE on CPAP G47.33, Z99.89 Osteoarthritis M19.90 Paroxysmal atrial fibrillation I48.0 Pericardial effusion I31.3 Preop cardiovascular exam Z01.810 12/20/20 W/ WILLIAMS, DR. GOOD Prostate cancer C61 scheduled for prostatectomy on 01/18/[address] Cummins Reactive airway disease J45.909 Shortness of breath on exertion R06.02 Thoracic aortic aneurysm without rupture I71.2 Wears hearing aid in both ears Z97.4 RAJANI EARS - Past Surgical History Surgical History: Past Surgical History (Last Reviewed 07/14/21 @ 13:31 by Yamila Lassiter) History of aortic valve repair Onset Date: 05/09/20 Z98.890, Z86.79 History of ascending aortic replacement Onset Date: 05/09/20 Z95.828 30 mm Hemashield History of extraction of renal calculus Z98.890, Z87.442 History of intraocular lens implant Z96.1 History of left heart catheterization Onset Date: 05/04/20 Z98.890 Preop assessment prior to valve surgery. History of open reduction and internal fixation (ORIF) procedure Z98.890 Right forearm, hardware since removed History of prostatectomy Z90.79 History of total right knee replacement Onset Date: ~2016 Z96.651 Hx of ascending aorta repair Z98.890 HX OF ASCENDING AORTA ANEURYSM 04/2020 Surgical History: - - Left foot remotely - Family History Summary Family History: Family History (Last Reviewed 07/14/21 @ 13:31 by Yamila Lassiter) Mother Cancer kidney Breast cancer Father Myocardial infarction, Onset Age: 55 Alzheimer's disease Social History - Smoking History Smoking Status: Never smoker Hx Tobacco Use: No Hx Smoking Exposure: No - Alcohol Use Alcohol Usage: No - None now hasn't drank since 1999 - Substance Abuse Hx Substance Use: No - Occupation Occupation (List type of work in comments):: Retired - semi retired - Hobbies, Recreation, Social Activities Hobbies: Walking, Exercise - [employer], Other - Own private bennett, enjoys landscaping Recreational Activities: I am able to engage in all my recreational activities Social Environment - Status Marital Status: Single - Current Living Arrangements Living Environment:: Spouse - Children How many children do you have?: 3 Do any of your children live nearby?: Yes - Safety Do you feel safe in your surroundings?: Yes - Assistance Do you need any assistance at home?: none Review of Systems - Review of Systems Hints: Right click = Denies ([place]ash). Left click = Reports ([place]) Review of Present Symptoms: Reports: Shortness of Breath with Exertion - still having some residual shortness of breath, Wound Healing, Dizziness/Lightheadedness - on occasions rare, Fatigue, Heart Arrhythmia/Irregularities - H/O RBBB, Appetite - Normal, Appetite - Special Diet - try to use the [place] Diet, Sleep - Normal. Denies: Shortness of Breath at Rest, Angina, Sexual Changes - Pain Is Patient Pain Free?: Yes Pain Location: none Pain Level: 0/10 Risk Factor Assessment - Vital Signs Temperature: 98.6 F Respiratory Rate: 18 Pulse Ox: 98 Blood Pressure: 116/62 - Pulse Pulse Rate: 72 Pulse Rhythm: Regular - Hypertension How long have you been treated?: only due to the surgery Blood Pressure Sitting - Left Arm: 116/62 - Obesity Height: 5 ft 9 in Weight:: 292 lb Weight in Pounds: 292.0 lbs Weight Source: Standing Scale Body Mass Index (BMI): 43.1 - Risk Stratification Risk Guidelines: Lowest Risk: Risk Factor for Smoking, Risk Factor for Hypertension, Risk Factor for Sedentary Lifestyle, Highest Risk: Risk Factor for Obesity - Family History Family History: Family History (Last Reviewed 07/14/21 @ 13:31 by Yamila Lassiter) Mother Cancer Breast cancer Father Myocardial infarction, Onset Age: 55 Alzheimer's disease Motivation - Motivation to Participate On a scale of 1 to 10, how prepared are you to commit to attending program?: 10 What do you see as barriers to successfully being able to complete the program?: other thant the left knee, No What do you see as the benefits of succesfully completing the program? In other words, what do you hope to get out of participating in the program?: better my health Are there issues you are dealing with that will interfere with completing the program?: Left knee needs replacement Do you have a spouse or signficant other, family or friends who will help support you to complete the program?: Yes
--- NOTE | 2021-07-25 09:20 | PCM.CR.ITP ---
Diagnosis - General Information Admitting Diagnosis: S/P Heart Valve Repair, Aortic Root/ascending aorta repair Personal Learning Style:: Audio/Visual Barriers to Learning: Hearing Impairment - Bilateral Hearing Aids, Vision Impairment Stage of change r/t lifestyle modifications:: Action Gave educational material for:: Treating Heart Disease, Emotions & Heart Disease, Stress Management & Relaxation, Sleep Disorders & Heart Disease, How The Heart Works, What it means to have Heart Disease, How Coronary Artery Disease is Diagnosed, Heart Procedures, What Heart Medications Do, Risk Factors & Modifications, Living an Active Life, Nutrition - Education/Goals Individual Counseling: Initial Assessment: Abnormal Cholesterol Levels, High Blood Pressure, Overweight/Obesity Cardiac Rehabilitation Goals: 1. Maintain the individual as the primary focus of care. 2. To improve the patient's quality of life. 3. Identification of cardiac risk factors and provide cardiac risk factor management. 4. Enhance the psychosocial status of the patient. 5. Reconditioning enough to allow the patient to resume customary activities. 6. Control symptoms of cardiac disease Personal Goals: Initial Assessment: Improve management of stress and emotions, Improve energy level, Improve muscle strength and endurance, Improve diet and eating habits (eat healthier), Control risk factors (learn risk factor modification) Scale for measuring improvement of personal goals: Enter appropriate number in Comments. 2 = Unchanged. 3 = Slightly Better. 4 = Moderate Improvement. 5 = Met my Goal - Diagnosis & Disease Process Outcomes/Goals: Pt IDs own risk factors & lifestyle modifications by Session 10, Verbalizes symptoms of angina & response by session 3., Pt independently manages Plan/Interventions: Assist Pt to ID & engage in lifestyle modification to reduce CVD risk, Instruct on individual risk factors, Review symptoms of angina & emergency actions, Review secondary diagnosis & identify educational needs. - Safety Referral to Physical Therapy: No Referral to [facility] Case Management: No Fall Risk Assessed:: Yes Assistive Devices:: None Exercise - Initial Assessment - Visit Date of Eval: 07/25/21 Session #:: 0 - pre-cardiac rehab Mets: Pre-: >7 METS for 30 minutes by discharge - Physician Prescribed Exercise Modalities: Treadmill - will be limited by left knee requiring replacement., Biodyne - Sci-Fit Lateral [place], [place]yne, NuStep Frequency: 3x/week for 12 weeks [36 sessions] Intensity: 60-80% of age predicted maximum heart rate reserve Current METSs:: 3.0 Target Heart Rate:: 117-133 Resting Blood Pressure: 116/62 EKG Type: Sinus rhythm with right bundle branch block Current Physical Activity or Exercising minutes: Working out at [email or web address] - Outcomes & Goals Goals:: Verbalizes understanding of THR, RPE & goal METS by session 6, Documents in home exercise log/reports 30 min aerobic 5 day/wk by DC, Demonstrates accurate pulse taking by DC - Intervention & Plan Exercise Program Goals: Instruct on personal THR & RPE, Instruct on MET level & personal MET goal, Show patient to take own pulse /validate performance until accurate, Instruct on home exercise - Physical Activity Home Exercise Physical Activity - Home Exercise: Safe Exercise, Warm-up, Self-monitoring, Cool-Down, Home Exercise > 30 min Daily, Sitting Time <3 hours/daily - Outcomes & Goals Outcomes/Goals: Demonstrates correct Warm-up/exercise Cool-Down (S3) if = 2.5 METs, Verbalizes symptoms of exercise intolerance by Session 3 (S3), Demonstrate safe equipment use (S3) & follows exercise prescrition (6) - Intervention & Plan Plan/Intervention: Instruct warm-up & cool-down if exercising at > 2 METs, Instruct on symptoms of exercise intolerance & actions to take, Assess intial functional capacity & safety risk Nutrition - Initial Assessment - Program Goals Nutrition Program Goals: LDL <100 optimal. 100 - 129 Near optimal. 130 - 159 Borderline High. 160 - 189 High. Total Cholesterol <200 desirable. 200 - 239 Borderline High. >/= 240 High. HDL < 40 Low >/=60 High. Triglycerides <150 desirable. <199 optimal. VlDL 5 - 40. HgbA1C <7%. BMI <25 Patient has diagnosis of Hyperlipidemia (ICD E78)?: Yes - Visit Date of Assessment:: 07/25/21 Session #:: 0 - pre-cardiac rehab evaluation - Cholesterol/Lipids Triglycerides (mg/dL): 0 - labs unavailable Determine presence & major risk factors that modify LDL goal: Hypertension or hypertensive medication, Age men > 45 years; women >/= 55 years Outcomes/Goals: Pt IDs own risk factors & lifestyle modifications by Session 10, Verbalizes symptoms of angina & response by session 3., Pt independently manages Intervention/Plan: Instruct on personal lipid levels & lipid goals/NCEP guidelines, Instruct on cholesterol - Diabetes (Other Core Measures) Diabetes Type: Not Applicable - Weight Mgt (Other Care) Not Applicable: No Height: 5 ft 9 in Weight:: 292 lb BMI: 43.1 Diagnosis Overweight/Obesity BMI> 30% ICD-10 E66: Yes Diagnosis High BMI/Morbid Obesity BMI> 35% ICD-10 Z68: Yes Outcomes/Goals: Pt sets, maintains & shows weight loss goal & trend during rehab Intervention/Plan: Instruct on ideal BMI & set weight loss goal w/patient, Assist pt to ID & incorporate diet changes for weight loss by S9, Refer to Structured Weight Loss program as appropriate, Encourage goal of using 250-300dcal per session for weight loss - Healthy Eating Habits Will attend diet classes:: Yes Outcomes/Goals:: Consume diet rich in vegs,fruits,whole grain/high fiber,fish,lean meat, Limit sat/trans fats,cholesterol & added salts & sugars Intervention/Plan:: Assess current eating habits - Education Gave educational materials for:: Healthy eating Nutrition - 30-Day Assessment Nutrition - 60-Day Assessment Nutrition - 90-Day Assessment Nutrition - Final Assessment Medical - Initial Assessment - Visit Date of Eval: 07/25/21 Session #:: 0 - Pre-cardaic rehab evaluation - Medication Compliance Preventative Medication(s):: Aspirin, Beta marco H/O mental health issues: depression, anxiety, or addiction?: No Doesn?t believe in the benefits of treatment?: No Believes medications are unnecessary or harmful?: No Has a concern about medication side effects?: No Expresses concern over the cost of medications?: No Outcomes/Goals: Verbalizes medications,desired effect & common side effects @ DC, Pt self-reports following medication regimen, Keeps card in wallet w/medications listed by DC Interventions/plans: Instruct on medication effects & side effects, Review medication list w/patient every two weeks, Instruct importance of taking meds as ordered & assist problem solving - Tobacco Use Tobacco Use: Non-smoker - Hypertension Hypertension Diagnosis:: Hypertension ICD-10 I10 Resting Blood Pressure:: 116/62 [place] [employer] Hypertension Guidelines: [place] [employer] Hypertension Guidelines. Normal BP Less than 120/80. Elevated BP 120/80. Hypertension Stage 1: BP 130-139/80-89. Hypertesnion Stage 2: BP 140 or higher/90 or higher. Hypertension Crisis: BP higher than 180/120 Outcomes/Goals: Able to verbalize/achieve optimal blood pressure <130/80, Incorporates diet changes & exercise for blood pressure control by DC Interventions/plan: Instruct on optimal blood pressure, hypertension & medications, Instruct on effects of sodium, alcohol, stress, exercise &hypertension - Tobacco Cessation Referral Smoking Cessation Referral:: No Individual Education/Counseling:: No Education Schedule Given:: Yes - Online resources provided along with printed Education Workbook w/instruct Medical- 30-Day Assessment Medical- 60-Day Assessment Medical- 90-Day Assessment Medical - Final Assessment Psychosocial - Initial Assess - VIsit Date of Eval: 07/25/21 Session #:: 0 - pre-cardiac rehab evaluation Not Applicable: Yes History of previous Mental disease:: No - Psychosocial Test Tool Used:: [employer] Power QOL Cardiac, PHQ-9 Questionnaire phq-9 Severity: Severity. 1-4 Minimal Depression. 5-9 Mild Depression. 10-14 Moderate Depression. 15-19 Moderately Sever Depression. 20-27 Severe Depression. Rule: - Referral to Behavioral Health PS - Interventions: Yes Attend Stress Management Classes, No Referral to Behavioral Health if PHQ-9 score >9:, No Referral to [facility], No Referral to Physician if PHQ-9 if score is 5-9: - Outcomes/Goals: See list Psychosocial Outcomes/Goals:: ID's personal stressors & 2 strategies to manage stress by discharge - Intervention/Plan: See List Interventions/Plan:: Assess stressors,coping strategies & signs of derpression on admission, Instruct/assist pt to develop coping & personal stress Mgt strategies, Instruct patient to recognize signs & symptoms of depression, Instruct patient to recog Psychosocial - 30-Day Assess Psychosocial - 60-Day Assess Psychosocial - 90-Day Assess Psychosocial - Final Assessmen Patient Health Questionnaire Initial Assessment 1. Little interest or pleasure in doing things: Several days 2. Feeling down, depressed, or hopeless: Several days 3. Trouble falling or staying asleep, or sleeping too much: More than half the days 4. Feeling tired or having little energy: More than half the days 5. Poor appetite or overeating: Not at all 6. Feeling bad about yourself -- or that you are a failure or have let yourself or your family down: Not at all 7. Trouble concentrating on things, such as reading the newspaper or watching television: Several days 8. Moving or speaking so slowly that other people could have noticed. Or the opposite - being so fidgety or restless that you have been moving around a lot more than usual: Not at all 9. Thoughts that you would be better off , or of hurting yourself in some way: Not at all How difficult have these problems made it for you to do your work, take care of things at home, or get along with other people?: Not difficult at all Total Score: 7 JOHN-Q SV Test - Statements CAD is a disease of the arteries in the heart: False Examples of risk factors for heart disease: True Angina is chest pain or discomfort: I Don't Know The benefits of resistance training include: True Eating more meat and dairy products: False Anti-platelet medications such as aspirin are important: True The only effective way to manage stress: False An exercise warm-up slowly increases heart rate: False Prepared, processed foods usually have high sodium: True Depression is common after a heart attack: True The statin medications lower cholesterol: True To control blood pressure, lower the amount of sodium: True If someone gets chest discomfort during walking: False Transfats are partially hydrogenated vegetable oils: False Sleep apnea that is not treated increases the risk: True To control cholesterol, one should become a vegetarian: False Someone knows if he/she is exercising at the right level: I Don't Know Diabetes cannot be prevented with exercise & health eating: False Stress is a large risk for heart attack: True A diet that can help lower blood pressure is rich in: True - Total Score Total Correct Responses: 15 Self-Efficacy Initial Assessment We would like to know how confident you are in doing certain activities. Please select your confidence level for:: Select your confidence level for the following using the scale 1-10 where 1 is not at all confident and 10 is totally confident. Your score is the average of all 6 responses. Fatigue: How confident are you that you can keep the fatigue caused by your disease from interfering with the things you want to do? Select Number: 10 Physical Discomfort or Pain: How confident are you that you can keep the physical discomfort or pain of your disease from interfering with the things you want to do? Select Number: 10 Emotional Distress: How confident are you that you can keep the emotional distress caused by your disease from interfering with the things you want to do? Select Number: 5 Other Symptoms or Health Problems: How confident are you that you can keep other symptoms or health problems from interfering with the things you want to do? Select Number: 5 Different Tasks and Activities: How confident are you that you can do the different tasks and activities needed to manage your health condition so as to reduce your need to see a doctor? Select Number: 10 Medication: How confident are you that you can do things other than just taking medication to reduce how much your illness affects your everyday life? Select Number: 8 Total Score:: 8 Nutrition Survey - Nutrition Survey Initial Have you lost >10 lbs over the past 2 months without trying?: No Are you following a special diet at home for diabetes, low fat, or low salt?: No Are you interested in meeting with a dietitian for help understanding your diet?: No Do you eat less than 3 meals a day?: Yes Do you eat fatty meats (li, sausage, ribs, etc), fried foods, desserts, large amounts of salad dressings, margarine, butter, or cheese most days?: No Do you have food allergies? [Enter types in comment field]: No Do you eat in restaurants more than 3 times a week?: No Do you season food with salt, seasoning salt, or garlic salt?: No Do you used canned, boxed, frozen meals, or soups, seasoning packets?: No Total Score:: 1
[2021-07-25 09:44] VITALS: BP 116/62; PULSE 72; RESP 18; TEMP 37; O2SAT 98; BMI 43.1
[2021-07-25 10:32] VITALS: BP 116/62; BMI 43.1
== END ==
PROVIDERS: PCP Internal Medicine; Referring Provider Internal Medicine Cardiovascular Disease; Visit Provider Internal Medicine Cardiovascular Disease
DX: I48.0 Paroxysmal atrial fibrillation (principal); E78.5 Hyperlipidemia, unspecified; I10 Essential (primary) hypertension; Z98.890 Other specified postprocedural states; Z86.79 Personal history of other diseases of the circulatory system; Z95.828 Presence of other vascular implants and grafts

== ENCOUNTER 2021-08-07 08:00 | Outpatient (RCR) | payer OTHER, SELFPAY ==
[2021-07-25 10:16] VITALS: BMI 43.1
== END 2021-08-15 23:59 ==
LOC: CR 08:00
PROVIDERS: PCP Internal Medicine; Visit Provider Internal Medicine Cardiovascular Disease
DX: I10 Essential (primary) hypertension (principal); I48.0 Paroxysmal atrial fibrillation; E78.5 Hyperlipidemia, unspecified; Z95.828 Presence of other vascular implants and grafts; Z86.79 Personal history of other diseases of the circulatory system; Z98.890 Other specified postprocedural states
CPT/HCPCS: 93798

== ENCOUNTER → 2021-08-30 08:02 | Outpatient (CLI) | payer OTHER, SELFPAY ==
[2021-01-18 06:10] VITALS: BMI 39.7
[2021-08-23 09:25] VITALS: BMI 42.5
--- NOTE | 2021-08-30 08:04 | CT_ITS ---
STUDY: CT LEFT LOWER EXTREMITY WITHOUT CONTRAST REASON FOR EXAM: Left knee osteoarthritis, surgical planning. TECHNIQUE: Transaxial CT imaging of the lower extremity was performed. Coronal and sagittal images were reformatted. Individualized dose optimization techniques were used for this CT. COMPARISON: Radiographs 10/06/2019. FINDINGS: Knee: There is severe joint space narrowing of the medial femorotibial compartment with subchondral cyst change and subchondral eburnation (coronal reconstruction 30). Normal lateral femoral condyle and lateral tibial plateau. There is preservation of the articular joint space of the lateral knee compartment. There are very small marginal osteophytes and mild joint space narrowing of the patellofemoral articulation (axial image 236). Normal proximal tibiofibular articulation. There is a very small joint effusion. The quadriceps tendon is grossly normal. The patellar tendon is grossly normal. Normal Hoffa''s fat pad. There is an intra-articular body superficial to the anterior medial femoral condyle (axial image 239) and an intra-articular body at the mesial aspect of the lateral femorotibial compartment (coronal reconstructions 31, 32). There is a popliteal cyst (sagittal reconstruction 28). There is vascular calcification. There is an enthesophyte at the femoral attachment of the medial collateral ligament. Hip: There is mild joint space narrowing at the superior lateral aspect of the left hip (coronal reconstruction 64). There is an os acetabula. Ankle: Normal tibiotalar, posterior subtalar and talonavicular articulations. There are plantar and posterior calcaneal enthesophytes. CT/Extremity Lower without Contra IMPRESSION: Left knee osteoarthritis. Electronically Signed: Yefri Schuster MD at 14:46 EST Tel , Service support ,
== END ==
PROVIDERS: PCP Internal Medicine; Referring Provider Physician Assistant; Visit Provider Physician Assistant
DX: M17.12 Unilateral primary osteoarthritis, left knee (principal)
CPT/HCPCS: 73700

== ENCOUNTER → 2021-09-04 08:38 | Outpatient (CLI) | payer OTHER, SELFPAY ==
[2021-08-23 09:25] VITALS: BMI 42.5
--- NOTE | 2021-09-04 08:45 | EKG12_ITS ---
Test Reason : PRE-OP Blood Pressure : / mmHG Vent. Rate : 060 BPM Atrial Rate : 060 BPM P-R Int : 204 ms QRS Dur : 144 ms QT Int : 432 ms P-R-T Axes : 033 036 058 degrees QTc Int : 432 ms Normal sinus rhythm Right bundle branch block Abnormal ECG Confirmed by KIT MORFIN, SOFIE ([id number]), industrial editor SAMANTHA RIVERA ([id number]) on 09/04/2021 1:05:14 PM Referred By: Alfredo العراقي Confirmed By:SOFIE PANTOJA MD
[2021-09-04 10:14] LABS: Hematocrit 45.9 % (40-54); Hemoglobin 14.9 g/dL (13.0-16.5); Mean Corp Hgb Conc 32.5 g/dL (32-36); Mean Corpuscular Hgb 29.2 pg (27.0-32.0); Mean Platelet Vol. 10.1 fl (6.2-12.0); Platelet Count 253 K/mm3 (150-450); RBC Distribution Width CV 12.3 % (11.6-14.6); RBC Distribution Width SD 40.6 fl (35.1-43.9); White Blood Count 6.2 K/mm3 (4.4-11.0)
[2021-09-04 10:37] LABS: Anion Gap 5 (5-15); BUN 14 mg/dL (7-18); BUN/Creat Ratio 13.3 RATIO (10-20); Calcium,Total 8.9 mg/dL (8.5-10.1); Chloride 106 mmol/L (98-107); Creatinine, Serum 1.05 mg/dL (0.70-1.30); EST Glomerular Filtration Rate 76 mL/min (>60); Est Glom Filt Rate - Afr Amer 92 mL/min (>60); Glucose 108 mg/dL (74-106); Hemoglobin A1c 5.7 % (3.8-5.6); Potassium 4.2 mmol/L (3.5-5.1); Sodium Level 138 mmol/L (136-145)
== END ==
PROVIDERS: PCP Internal Medicine; Referring Provider Orthopaedic Surgery; Visit Provider Orthopaedic Surgery
DX: Z01.818 Encounter for other preprocedural examination (principal)
CPT/HCPCS: 36415; 80048; 83036; 85027; 93005

== ENCOUNTER 2021-09-06 08:00 | Outpatient (RCR) | payer OTHER, SELFPAY ==
[2021-07-25 10:32] VITALS: BMI 43.1
--- NOTE | 2021-08-23 09:15 | CR.ITP_ITS ---
Diagnosis Exercise - 30-day Assessment - Visit Date of Eval: 08/23/21 Session #:: 9 - Physician Prescribed Exercise Modalities: Treadmill, Rower, NuStep Frequency: 3x/week for 12 weeks [36 sessions] Intensity: 60-80% of age predicted maximum heart rate reserve Current METSs:: 6 Target Heart Rate:: 117-133 Current RPE:: 13-14 Maximum Excercise HR:: 119 Resting Blood Pressure: 130/72 Maximum Exercise Blood Pressure: 166/86 EKG Type: SR to ST with rare PAC and PVC - Outcomes & Goals Goals:: Verbalizes understanding of THR, RPE & goal METS by session 6, Documents in home exercise log/reports 30 min aerobic 5 day/wk by DC, Demonstrates accurate pulse taking by DC, Other additional outcome/goals: see below - Intervention & Plan Exercise Program Goals: Instruct on personal THR & RPE, Instruct on MET level & personal MET goal, Show patient to take own pulse /validate performance until accurate, Instruct on home exercise, Other additional plan/int - 30-day Reassessments 30 day Reassessments:: Progressing - Physical Activity Home Exercise Physical Activity - Home Exercise: Safe Exercise, Warm-up, Self-monitoring, Cool-Down, Home Exercise > 30 min Daily, Sitting Time <3 hours/daily - Outcomes & Goals Outcomes/Goals: Demonstrates correct Warm-up/exercise Cool-Down (S3) if = 2.5 METs, Verbalizes symptoms of exercise intolerance by Session 3 (S3), Demonstrate safe equipment use (S3) & follows exercise prescrition (6), Other: See below - Intervention & Plan Plan/Intervention: Instruct warm-up & cool-down if exercising at > 2 METs, Instruct on symptoms of exercise intolerance & actions to take, Instruct & monitor on saf, Assess intial functional capacity & safety risk, Other See below Nutrition - Initial Assessment Nutrition - 30-Day Assessment - Program Goals Nutrition Program Goals: LDL <100 optimal. 100 - 129 Near optimal. 130 - 159 Borderline High. 160 - 189 High. Total Cholesterol <200 desirable. 200 - 239 Borderline High. >/= 240 High. HDL < 40 Low >/=60 High. Triglycerides <150 desirable. <199 optimal. VlDL 5 - 40. HgbA1C <7%. BMI <25 Patient has diagnosis of Hyperlipidemia (ICD E78)?: Yes - Visit Date of Assessment:: 08/23/21 Session #:: 9 - Cholesterol/Lipids Determine presence & major risk factors that modify LDL goal: Hypertension or hypertensive medication, Low HDL cholesterol <40 mg/dL*, Family history of premature CHD in Male < 55 years: female <65 yearsFa, Age men > 45 years; women >/= 55 years Outcomes/Goals: Pt IDs own risk factors & lifestyle modifications by Session 10, Verbalizes symptoms of angina & response by session 3., Pt independently manages, Other Additional Outcomes/Goals: Intervention/Plan: Advocate for lipid panel cholesterol medication if applicable, Instruct on personal lipid levels & lipid goals/NCEP guidelines, Instruct on cholesterol, Other additional plan/int 30-day Reassessments:: Progressing - Diabetes (Other Core Measures) Diabetes Type: Not Applicable - Weight Mgt (Other Care) Height: 5 ft 9 in Weight:: 130.635 kg BMI: 42.5 Diagnosis Overweight/Obesity BMI> 30% ICD-10 E66: Yes Diagnosis High BMI/Morbid Obesity BMI> 35% ICD-10 Z68: Yes Outcomes/Goals: Pt sets, maintains & shows weight loss goal & trend during rehab, Other additional outcomes/goals Intervention/Plan: Instruct on ideal BMI & set weight loss goal w/patient, Assist pt to ID & incorporate diet changes for weight loss by S9, Refer to Structured Weight Loss program as appropriate, Encourage goal of using 250- 300dcal per session for weight loss, Other additional plan/interventions 30 day Reassessments:: Progressing - Healthy Eating Habits Will attend diet classes:: Yes Outcomes/Goals:: Consume diet rich in vegs,fruits,whole grain/high fiber,fish,lean meat, Limit sat/trans fats,cholesterol & added salts & sugars, Other additional outcome/goals: Intervention/Plan:: Assess current eating habits, Other Additional plan/interventions 30-day Reassessments:: Progressing - Education Gave educational materials for:: Signs & symptoms of hypoglycemia, Signs & symptoms of hyperglycemia, Relate diabetes to coronary artery disease, Healthy eating Nutrition - 60-Day Assessment Nutrition - 90-Day Assessment Nutrition - Final Assessment Medical - Initial Assessment Medical- 30-Day Assessment - Visit Date of Eval: 08/23/21 Session #:: 9 - Medication Compliance Preventative Medication(s):: Aspirin, Beta marco H/O mental health issues: depression, anxiety, or addiction?: No Doesn?t believe in the benefits of treatment?: No Believes medications are unnecessary or harmful?: No Has a concern about medication side effects?: No Expresses concern over the cost of medications?: No Outcomes/Goals: Verbalizes medications,desired effect & common side effects @ DC, Pt self-reports following medication regimen, Keeps card in wallet w/medications listed by DC, Other additional outcome/goals: Interventions/plans: Instruct on medication effects & side effects, Review medication list w/patient every two weeks, Instruct importance of taking meds as ordered & assist problem solving, Other additional 30-day Reassessments:: Progressing - Tobacco Use Tobacco Use: Non-smoker - Hypertension Hypertension Diagnosis:: Hypertension ICD-10 I10 Resting Blood Pressure:: 130/72 [place] [employer] Hypertension Guidelines: [place] [employer] Hypertension Guidelines. Normal BP Less than 120/80. Elevated BP 120/80. Hypertension Stage 1: BP 130-139/80-89. Hypertesnion Stage 2: BP 140 or higher/90 or higher. Hypertension Crisis: BP higher than 180/120 Peak Exercise Blood Pressure:: 166/86 Outcomes/Goals: Able to verbalize/achieve optimal blood pressure <130/80, Incorporates diet changes & exercise for blood pressure control by DC, Other additional outcomes/goals Interventions/plan: Instruct on optimal blood pressure, hypertension & medications, Instruct on effects of sodium, alcohol, stress, exercise &hypertension, Other additional plan/interventions 30 day Reassessments:: Progressing - Tobacco Cessation Referral Smoking Cessation Referral:: No Individual Education/Counseling:: No Education Schedule Given:: Yes Medical- 60-Day Assessment Medical- 90-Day Assessment Medical - Final Assessment Psychosocial - Initial Assess Psychosocial - 30-Day Assess - VIsit Date of Eval: 08/23/21 Session #:: 9 Not Applicable: No - Outcomes/Goals: See list Psychosocial Outcomes/Goals:: ID's personal stressors & 2 strategies to manage stress by discharge, Other Additional outcome/goals: - Intervention/Plan: See List Interventions/Plan:: Assess stressors,coping strategies & signs of derpression on admission, Instruct/assist pt to develop coping & personal stress Mgt strategies, Refer to Behavioral Health if appropriate, Refer to Physician if appropriate, Instruct patient to recognize signs & symptoms of depression, Instruct patient to recog, Other additional plan/intervention - 30-day Reassessments: 30 day Reassessments:: Progressing Psychosocial - 60-Day Assess Psychosocial - 90-Day Assess Psychosocial - Final Assessmen Patient Health Questionnaire 30-Day Re-eval Assessment 1. Little interest or pleasure in doing things: Several days 2. Feeling down, depressed, or hopeless: Several days 3. Trouble falling or staying asleep, or sleeping too much: More than half the days 4. Feeling tired or having little energy: More than half the days 5. Poor appetite or overeating: Not at all 6. Feeling bad about yourself -- or that you are a failure or have let yourself or your family down: Not at all 7. Trouble concentrating on things, such as reading the newspaper or watching television: Several days 8. Moving or speaking so slowly that other people could have noticed. Or the opposite - being so fidgety or restless that you have been moving around a lot more than usual: Not at all 9. Thoughts that you would be better off , or of hurting yourself in some way: Not at all How difficult have these problems made it for you to do your work, take care of things at home, or get along with other people?: Not difficult at all Total Score: 7 Self-Efficacy 30-Day Re-eval Assessment We would like to know how confident you are in doing certain activities. Please select your confidence level for:: Select your confidence level for the following using the scale 1-10 where 1 is not at all confident and 10 is totally confident. Your score is the average of all 6 responses. Fatigue: How confident are you that you can keep the fatigue caused by your disease from interfering with the things you want to do? Select Number: 10 Physical Discomfort or Pain: How confident are you that you can keep the physical discomfort or pain of your disease from interfering with the things you want to do? Select Number: 10 Emotional Distress: How confident are you that you can keep the emotional distress caused by your disease from interfering with the things you want to do? Select Number: 5 Other Symptoms or Health Problems: How confident are you that you can keep other symptoms or health problems from interfering with the things you want to do? Select Number: 5 Different Tasks and Activities: How confident are you that you can do the different tasks and activities needed to manage your health condition so as to reduce your need to see a doctor? Select Number: 10 Medication: How confident are you that you can do things other than just taking medication to reduce how much your illness affects your everyday life? Select Number: 8 Total Score:: 8 Nutrition Survey
[2021-08-23 09:25] VITALS: BP 130/72; BP 166/86; BMI 42.5
== END 2021-09-15 23:59 ==
LOC: CR 08:00
PROVIDERS: PCP Internal Medicine; Visit Provider Internal Medicine Cardiovascular Disease
DX: I10 Essential (primary) hypertension (principal); I48.0 Paroxysmal atrial fibrillation; E78.5 Hyperlipidemia, unspecified; Z95.828 Presence of other vascular implants and grafts; Z86.79 Personal history of other diseases of the circulatory system
CPT/HCPCS: 93798

== ENCOUNTER → 2021-09-13 | Outpatient (CLI) | payer OTHER, SELFPAY ==
[2021-08-23 09:25] VITALS: BMI 42.5
--- NOTE | 2021-09-13 13:30 | KNEE_PTH ---
PATIENT: NITISH MAC LOC: [facility] U#:[id number] AGE/SX: 61/M ROOM: RE09/13/[address]: Dr. Alfredo العراقي DO : 1960 BED: DIS: 09/13/2021 SPEC #: [id number] RECD: 09/13/21 15:09 STATUS: YODIT REQ #: [id number] DAMIAN: 09/13/21 13:[address]: Alfredo العراقي DEPT: SURGICAL PATHOLOGY RECD BY: Rebecca Horn ENTERED: 09/14/21 12:43 SP TYPE: TOTAL KNEE OTHR DR: Dr. Goldie Kohler, [facility] Tissues: Knee, NOS Procedures: Decalcification bone/plaque Surgery Specimen Level IV HEADER OPERATION: Robotic assisted left total knee arthroplasty PRE-OP DIAGNOSIS: Unilateral primary osteoarthritis TISSUE SUBMITTED: Bone and soft tissue left knee MICROSCOPIC DIAGNOSIS Bone and tissue of left knee, total knee resection: Severe degenerative joint disease. Mild synovial hyperplasia. AM:chio 09/20/2021 MICROSCOPIC DESCRIPTION Slides are reviewed. GROSS DESCRIPTION Received is one container designated bone and soft tissue left knee. The specimen consists of multiple fragments of nogueira-yellow bone measuring in aggregate 11 x 10 x 3 cm. Also in the specimen container are multiple fragments of yellow-white soft tissue measuring in aggregate 9 x 8 x 3 cm. A number of bony fragments contain articular surfaces consistent with tibial plateau and femoral condyle and displaying prominent osteophyte formation, eburnation, and bone erosion. Systems Support Engineer sections are submitted in two cassettes as follows: 1 - soft tissue, 2 - bone after decalcification. / SJ:chio 09/14/21 TC:5 [facility]: [id number], [id number]
== END | disposition home or self-care (01) ==
LOC: LABSPEC 15:42
PROVIDERS: PCP Internal Medicine; Visit Provider Orthopaedic Surgery
DX: M17.12 Unilateral primary osteoarthritis, left knee (principal)
CPT/HCPCS: 88305; 88311

== ENCOUNTER 2021-10-02 09:32 | Outpatient (RCR) | payer OTHER, SELFPAY ==
[2021-08-23 09:25] VITALS: BMI 42.5
[2021-09-16 00:34] VITALS: BP 130/72; BP 166/86
== END 2021-10-16 23:59 ==
LOC: CR 09:32
PROVIDERS: PCP Internal Medicine; Visit Provider Internal Medicine Cardiovascular Disease
DX: I10 Essential (primary) hypertension (principal); I48.0 Paroxysmal atrial fibrillation; E78.5 Hyperlipidemia, unspecified; Z86.79 Personal history of other diseases of the circulatory system; Z95.828 Presence of other vascular implants and grafts; Z98.890 Other specified postprocedural states
CPT/HCPCS: 93798

== ENCOUNTER 2021-10-12 08:43 | Outpatient (CLI) | payer OTHER, SELFPAY ==
[2021-08-23 09:25] VITALS: BMI 42.5
[2021-10-12 10:34] LABS: PSA,Total- Diagnostic < 0.01 ng/mL (0.0-4.0)
== END 2021-10-12 23:59 | disposition short-term general hospital (02) ==
LOC: LAB 08:45
PROVIDERS: PCP Internal Medicine; Referring Provider Urology; Visit Provider Urology
DX: C61 Malignant neoplasm of prostate (principal)
CPT/HCPCS: 36415; 84153

== ENCOUNTER 2021-12-26 07:53 | Outpatient (CLI) | payer OTHER, SELFPAY ==
[2021-08-23 09:25] VITALS: BMI 42.5
--- NOTE | 2021-12-26 07:55 | US_ITS ---
STUDY: ABDOMINAL ULTRASOUND - RIGHT UPPER QUADRANT REASON FOR VISIT: Male, 61 years old FATTY LIVER TECHNIQUE: Ultrasound evaluation of the right upper quadrant was performed with real-time and static pittman-scale imaging. TECHNICAL QUALITY: Adequate. COMPARISON: None. FINDINGS: Liver: The liver measures 14.4 cm. There is normal echogenicity of the liver. The bile ducts are within normal limits. There is hepatic color flow. The direction of portal flow is hepatopetal. There is no demonstrated mass lesion. Gallbladder: Normal distended gallbladder. The gallbladder wall measures 2.7 mm. There is a negative sonographic Samson''s sign. There is no pericholecystic fluid. There are no gallstones. There is a 1.1 cm x 0.4 cm x 0.4 cm polyp adherent to the gallbladder wall. Common Bile Duct (C.B.D.): The common bile duct measures 3.6 mm. Pancreas: Normal size of the head, body and tail of the pancreas. There is increased echogenicity of the pancreas. There is no demonstrated pancreatic mass or cyst. Right Kidney: Normal size of the right kidney. The right kidney measures 13.2 cm x 6.8 cm x 5.3 cm. Normal renal cortex. The right cortex measures 1.95 cm. There is a 3.3 cm x 2.6 cm x 3.1 cm cyst in the lower pole of the right kidney. There is no right hydronephrosis. US/Liver IMPRESSION: 1.1 cm x 0.4 cm x 0.4 cm polyp adherent to the gallbladder wall. Right renal cyst. Electronically Signed: Ulisses Bowers MD at 12:13 EDT ,
== END 2021-12-26 23:59 | disposition home or self-care (01) ==
PROVIDERS: PCP Internal Medicine; Referring Provider Internal Medicine; Visit Provider Internal Medicine
DX: K76.0 Fatty (change of) liver, not elsewhere classified (principal)
CPT/HCPCS: 76705

== ENCOUNTER 2022-01-21 17:29 | Emergency (ER) | payer OTHER, SELFPAY ==
[2021-08-23 09:25] VITALS: BMI 42.5
[2022-01-21 17:30] VITALS: BP 150/81; PULSE 68; RESP 14; TEMP 36.4; O2SAT 95; BMI 42.8
[2022-01-21 17:32] VITALS: BP 150/81; PULSE 68; RESP 14; TEMP 36.4; O2SAT 95
--- NOTE | 2022-01-21 17:45 | CT_ITS ---
STUDY: CT ABDOMEN AND PELVIS WITH CONTRAST REASON FOR EXAM: Male, 61 years old. abdominal pain RADIATION DOSAGE (If Supplied By Facility): CTDIvol = ( 17.08 ) mGy, DLP = ( 1315.82 ) mGycm TECHNIQUE: Transaxial images were obtained from the dome of the diaphragm to the symphysis pubis without oral contrast. IV 100mL Isovue-300 was administered. Sagittal and coronal images were reconstructed. Individualized dose optimization techniques were used for this CT. COMPARISON: 11/26/2020 FINDINGS: The visualized lung bases are unremarkable. The visualized portions of the heart are within normal limits. Normal liver. Gallbladder is absent with expected mild induration in the gallbladder fossa compatible with recent cholecystectomy. Normal spleen. There are pancreatic tail calcifications in the distribution of the ducts consistent with chronic pancreatitis. Normal bilateral adrenal glands. Simple bilateral renal cysts. No required imaging follow-up needed given high likelihood of benign nature. No hydronephrosis. Normal visualized stomach. Normal small intestine. Normal colon. The appendix is visualized and appears normal. There is diffuse atherosclerotic calcification of the abdominal aorta, without a demonstrated aneurysm. Normal inferior vena cava. Normal retroperitoneum. Normal urinary bladder. Trace pelvic free fluid. There is a small umbilical hernia containing fat. There are diffuse degenerative changes of the visualized lumbar spine. CT/Abdomen/Pelvis W IV Cont ONLY IMPRESSION: 1. Cholecystectomy with expected recent operative changes. No abscess or focal fluid collection. Electronically Signed: Hayder Scott MD (Brooks) at 18:55 EDT ,
--- NOTE | 2022-01-21 17:57 | ED.VIS.GI ---
HPI HPI - GI History of Present Illness Chief Complaint: Abd Pain Narrative Narrative: 61-year-old male status post lap cholecystectomy on by Dr. Zaragoza presenting with abdominal pain. He states he had been doing well postoperatively and notes that today he started having pain across his epigastrium that radiated to the right and left. He also complains of pain in his right shoulder. He has nausea but has not been vomiting. He has had some loose stools but no constipation. Denies fever or chills. Denies urinary complaints. Patient took pain medication before coming to the ER and his pain is nearly completely resolved. He states that he called Dr. Zaragoza's office and they sent him to the ER. [facility] Medical History ADHD (attention deficit hyperactivity disorder) Arthritis Back pain Edema Essential hypertension Fatty infiltration of liver GERD (gastroesophageal reflux disease) Gout Hx of echocardiogram (~08/22/20) Hyperlipidemia Kidney stones Nonrheumatic aortic (valve) insufficiency SAPPHIRE on CPAP Osteoarthritis Paroxysmal atrial fibrillation Pericardial effusion Preop cardiovascular exam Prostate cancer Reactive airway disease Shortness of breath on exertion Thoracic aortic aneurysm without rupture Wears hearing aid in both ears Home Medications atenolol 25 mg PO DAILY 03/02/20 [History Last Taken 01/17/21 21:00] simvastatin 20 mg PO DAILY 03/02/20 [History Last Taken 01/17/21 21:00] vitamin E (dl, acetate) 400 units PO DAILY 03/02/20 [History Last Taken 01/17/21 21:00] allopurinol 100 mg tablet 100 mg PO DAILY tablet 12/20/20 [History Last Taken 01/17/21 21:00] cholecalciferol (vitamin D3) 25 mcg (1,000 unit) tablet 25 mcg PO DAILY 07/14/21 [History Last Taken Unknown] vilazodone 40 mg tablet 40 mg PO DAILY tab 01/12/22 [History Last Taken Unknown] Allergy/AdvReac Type Severity Reaction Status Date / Time Penicillins Allergy Anaphylaxis Verified 01/12/22 13:59 hydromorphone [From Dilaudid] AdvReac PT UNSURE Verified 01/12/22 13:59 OF REACTION Family History Mother Cancer kidney Breast cancer Father Myocardial infarction, Onset Age: 55 Alzheimer's disease Surgical History History of aortic valve repair (05/09/20) History of ascending aortic replacement (05/09/20) History of extraction of renal calculus History of intraocular lens implant History of left heart catheterization (05/04/20) History of left knee replacement (09/13/21) History of open reduction and internal fixation (ORIF) procedure History of prostatectomy History of total right knee replacement (~2016) Hx of ascending aorta repair Social History Smoking Status: Never smoker alcohol intake: former year quit: 1999 substance use type: does not use caffeine: Yes Type: coffee Number of servings: 4 ROS ROS ED Constitutional Constitutional ED: Denies chills or fever(s) ENT ENT ED: Denies rhinorrhea or sore throat Cardiovascular Cardiovascular: Denies chest pain or palpitations Respiratory/Chest Respiratory/Chest: Denies cough or dyspnea Gastrointestinal Gastrointestinal: Reports abdominal pain, diarrhea and nausea; Denies constipation or vomiting Genitourinary Genitourinary ED: Denies dysuria or hematuria Musculoskeletal Musculoskeletal: Denies arthralgias or myalgias Integumentary Denies rash Neurologic Neurologic: Denies headache(s) or weakness Psychiatric Psychiatric: Denies anxiety or depression EXAM Physical Exam Const Vital Signs: 01/21/22 17:30 01/21/22 17:32 01/21/22 19:32 Temperature 97.6 F L 97.6 F L Temperature Source Temporal Temporal Pulse Rate 68 68 76 Respiratory Rate 14 14 22 H Blood Pressure 150/81 H 150/81 H 167/85 H Blood Pressure Mean 104 104 112 Pulse Ox 95 95 93 Oxygen Delivery Method Room Air Room Air Room Air Positive well nourished General Appearance ED: NAD HEENT normocephalic and atraumatic Eyes PERRL and EOMs intact bilaterally Resp normal respiratory effort and clear to auscultation bilaterally Cardio regular rate and regular rhythm GI non-distended Palpation: soft; Negative for guarding, rigid or rebound tenderness present Back/Spine no CVA tenderness Neuro CN's II-XII intact bilaterally Sensorium / Orientation: alert, oriented to person, oriented to place and oriented to time Psych mental status grossly normal and thought process normal Skin Skin Narrative: Surgical sites of the abdomen are clean, dry, intact. No sign of cellulitic change. No drainage. MDM MDM MDM Narrative Medical decision making narrative: CBC, CMP, lipase all within normal limits. Patient initially did not request anything for pain but then did ask for some morphine. This was given. His pain is well controlled. Vital signs are stable he is afebrile. I obtained a CT of the abdomen pelvis with IV contrast which shows no acute abnormalities. There is postoperative changes which are expected. No abscess or free fluid. I did discuss the patient with Dr. Basilio who is on-call for Dr. Zaragoza and she recommended discharge home. Discussed all findings with the patient and he is comfortable being discharged home at this time. He was given return precautions. Impression: 1. Abdominal pain 2. Postop wound check Lab Data Labs: Laboratory Results - last 24 hr 01/21/22 01/21/22 17:55 17:55 WBC 10.7 RBC 5.64 Hgb 16.0 Hct 48.7 MCV 86.3 MCH 28.4 MCHC 32.9 RDW Std Deviation 41.5 RDW Coeff of Chante 13.2 Plt Count 308 MPV 9.7 Immature Gran % (Auto) 0.400 Neut % (Auto) 73.1 H Lymph % (Auto) 15.9 L [place] % (Auto) 7.6 Eos % (Auto) 2.5 Baso % (Auto) 0.5 Absolute Neuts (auto) 7.8 H Absolute Lymphs (auto) 1.70 Nucleated RBC % 0 Sodium 140 Potassium 4.0 Chloride 108 H Carbon Dioxide 26.0 Anion Gap 6 BUN 21 H Creatinine 1.03 Estim Creat Clear Calc 73.41 Est GFR (MDRD) Af Amer 94 Est GFR (MDRD) Non-Af 77 BUN/Creatinine Ratio 20.4 H Glucose 143 H Calcium 9.0 Total Bilirubin 0.30 AST 18 ALT 40 Alkaline Phosphatase 102 Total Protein 7.4 Albumin 3.6 Globulin 3.8 Albumin/Globulin Ratio 0.9 Lipase 58 L Radiography Diagnostic Testing: Clinical Impression(s) from Imaging Studies Abdomen/Pelvis CT 01/21/22 17:45 IMPRESSION: 1. Cholecystectomy with expected recent operative changes. No abscess or focal fluid collection. Electronically Signed: Hayder Scott MD (Brooks) at 18:55 EDT , Discharge Plan Triage Chief Complaint: Abd Pain ED Provider: Jean George Dx/Rx/DC Orders Instructions: ED Post Op Wound Check, Pain Prescriptions: No Action allopurinol 100 mg tablet 100 mg PO DAILY RF: 0 cholecalciferol (vitamin D3) 25 mcg (1,000 unit) tablet 25 mcg PO DAILY RF: 0 Viibryd 40 mg tablet 40 mg PO DAILY RF: 0 atenolol 25 MG tablet 25 mg PO DAILY RF: 0 simvastatin 20 MG tablet 20 mg PO DAILY RF: 0 vitamin E (dl, acetate) 400 UNITS capsule 400 units PO DAILY RF: 0 Primary Care Provider: Goldie Kohler Referrals: Goldie Kohler DO [Primary Care Provider] - eNstor Zaragoza MD [STAFF PHYSICIAN] - 3-5 Days Disposition Disposition: Home, Self Care
[2022-01-21] MEDS: 0.9% Normal Saline 1,000 ML 1000 ML IV (18:02)
[2022-01-21 18:06] LABS: Absolute Neutrophil Count 7.8 X10^3/uL (2.0-7.7); Basophil# 0.05 X10^3/uL; Basophil% 0.5 % (0-1); Eosinophil# 0.27 X10^3/uL; Eosinophils% 2.5 % (0-5); Hematocrit 48.7 % (40-54); Lymphocyte % 15.9 % (19-41); Mean Corp Hgb Conc 32.9 g/dL (32-36); Mean Corpuscular Hgb 28.4 pg (27.0-32.0); Mean Corpuscular Volume 86.3 fL (80-94); Mean Platelet Vol. 9.7 fl (6.2-12.0); Monocyte# 0.82 X10^3/uL; Monocyte% 7.6 % (0-10); NRBC Flagged by Analyzer 0 % (0-5); Neutrophil # 7.84 X10^3/uL (2.7-7.7); Neutrophil % 73.1 % (47-70); Platelet Count 308 K/mm3 (150-450); RBC Distribution Width CV 13.2 % (11.6-14.6); RBC Distribution Width SD 41.5 fl (35.1-43.9); Red Blood Count 5.64 M/mm3 (4.6-6.2); White Blood Count 10.7 K/mm3 (4.4-11.0)
[2022-01-21] MEDS: Morphine 4 MG/ML Syringe IV (18:18)
[2022-01-21 18:22] LABS: ALB/GLOB Ratio 0.9 RATIO (0.9-2.4); AST(SGOT) 18 U/L (15-37); Alanine Aminotransfer ALT/SGPT 40 U/L (16-61); Albumin, Serum 3.6 g/dL (3.2-5.0); Alkaline Phosphatase 102 U/L (45-117); Anion Gap 6 (5-15); BUN 21 mg/dL (7-18); BUN/Creat Ratio 20.4 RATIO (10-20); Chloride 108 mmol/L (98-107); Creatinine, Serum 1.03 mg/dL (0.70-1.30); EST Glomerular Filtration Rate 77 mL/min (>60); Est Glom Filt Rate - Afr Amer 94 mL/min (>60); Estimated Creatinine Clearance 73.41 ml/min; Globulin 3.8 g/dL (2.2-4.2); Glucose 143 mg/dL (74-106); Lipase 58 U/L (73-393); Protein, Total 7.4 g/dL (6.4-8.2); Sodium Level 140 mmol/L (136-145)
[2022-01-21 19:32] VITALS: BP 167/85; PULSE 76; RESP 22; O2SAT 93
[2022-01-21 20:28] VITALS: RESP 16; O2SAT 96
--- NOTE | 2022-01-21 20:29 | NURSING ---
Pt originally was told by MD that he would order patient additional pain medications but pt was becoming frustrated and given the option to wait for additional pain medications or discharge and pt and elected to discharge. Discharge papers reviewed and voiced understanding.
== END 2022-01-21 20:29 | disposition home or self-care (01) ==
PROVIDERS: Emergency Provider Student in an Organized Health Care Education/Training Program; PCP Internal Medicine; Visit Provider Student in an Organized Health Care Education/Training Program
DX: R10.9 Unspecified abdominal pain (principal); G47.33 Obstructive sleep apnea (adult) (pediatric); Z87.891 Personal history of nicotine dependence; Z48.01 Encounter for change or removal of surgical wound dressing
CPT/HCPCS: 74177; 80053; 83690; 85025; 96361; 96374; 99283; J7030; Q9967; A4216

== ENCOUNTER → 2022-04-12 | Outpatient (CLI) | payer OTHER, SELFPAY ==
[2021-08-23 09:25] VITALS: BMI 42.5
[2022-04-12 11:38] LABS: PSA,Total- Diagnostic < 0.01 ng/mL (0.0-4.0)
== END | disposition home or self-care (01) ==
LOC: LAB 09:13
PROVIDERS: PCP Internal Medicine; Visit Provider Urology
DX: C61 Malignant neoplasm of prostate (principal)
CPT/HCPCS: 36415; 84153

== ENCOUNTER 2022-04-30 15:19 | Outpatient (CLI) | payer OTHER, SELFPAY ==
[2021-08-23 09:25] VITALS: BMI 42.5
[2022-04-30 15:32] VITALS: BP 133/82; PULSE 70; RESP 16; TEMP 37.2; O2SAT 97; BMI 41.3
[2022-04-30] MEDS: 0.9% Saline Lock 10 ML Syringe IV ×2 (15:38→15:54)
[2022-04-30] MEDS: BEBTELOVIMAB 175 MG/2 ML VIAL IV (15:55)
[2022-04-30 16:27] VITALS: BP 109/71; PULSE 67; RESP 16; TEMP 36.9; O2SAT 97
[2022-04-30 16:50] VITALS: BP 124/71; PULSE 68; RESP 16; TEMP 37; O2SAT 97
--- NOTE | 2022-04-30 17:26 | NURSING ---
IV removed before discharge
== END 2022-04-30 16:55 | disposition home or self-care (01) ==
LOC: MS3OUT 15:19 → MS2 15:21
PROVIDERS: PCP Internal Medicine; Referring Provider Nurse Practitioner Adult Health; Visit Provider Nurse Practitioner Adult Health
DX: U07.1 COVID-19 (principal); E66.9 Obesity, unspecified
CPT/HCPCS: M0222; Q0222; A4216

== ENCOUNTER → 2022-10-16 | Outpatient (CLI) | payer OTHER, SELFPAY ==
[2021-08-23 09:25] VITALS: BMI 42.5
[2022-10-16 09:03] LABS: PSA,Total- Diagnostic < 0.01 ng/mL (0.0-4.0)
== END | disposition home or self-care (01) ==
LOC: LAB 07:41
PROVIDERS: PCP Internal Medicine; Referring Provider Urology; Visit Provider Urology
DX: C61 Malignant neoplasm of prostate (principal)
CPT/HCPCS: 36415; 84153

== ENCOUNTER → 2023-02-19 | Outpatient (CLI) | payer OTHER, SELFPAY ==
[2021-08-23 09:25] VITALS: BMI 42.5
--- NOTE | 2023-02-19 09:02 | ECHOD_ITS ---
Reason For Study: AV Repair, Ao root replacement Procedure This was a 2D Doppler, Color Flow transthoracic echocardiogram. Exam performed in department. Left Ventricle Normal LV size. Left ventricular systolic function is normal. The estimated ejection fraction is 60 %. No regional wall motion abnormalities noted. Right Ventricle Normal RV size. Normal systolic function. Atria The left atrium is moderately enlarged. The right atrium is mildly enlarged. Mitral Valve Normal mitral valve. Trivial mitral valve insufficiency. Tricuspid Valve Normal tricuspid valve. Mild tricuspid valve insufficiency. Pulmonary artery systolic pressure is 24 mmHg. Aortic Valve Aortic valve repair. Peak aortic valve gradient 11 mmHg. Mean aortic valve gradient 5 mmHg. Pulmonic Valve Normal pulmonic valve. Mild (1+) pulmonic valve insufficiency. Great Vessels Normal aortic root. The pulmonary artery is normal size. Normal inferior vena cava. Pericardium/Pleural No pericardial effusion. MMode/2D Measurements & Calculations LVIDd: 5.3 cm IVSd: 1.3 cm LVOT diam: 2.2 cm LVIDs: 4.1 cm LVPWd: 1.0 cm LVOT area: 3.8 cm2 RVDd: 4.0 cm FS: 23.1 % Ao root diam: 3.1 cm LAV(MOD-bp): 98.3 ml LVAd ap4: 35.4 cm2 LAV(MOD-bp) Indexed: 41.2 ml/m2 LVLd ap4: 9.4 cm LAV(MOD-sp2): 100.4 ml EDV(MOD-sp4): 116.0 ml LAV(MOD-sp4): 99.9 ml EDV(sp4-el): 113.6 ml LVAs ap4: 20.5 cm2 LVLs ap4: 7.4 cm ESV(MOD-sp4): 51.4 ml ESV(sp4-el): 48.4 ml EF(MOD-sp4): 55.7 % EF(sp4-el): 57.4 % LVAd ap2: 45.9 cm2 SV(MOD-sp4): 64.6 ml SV(MOD-sp2): 116.4 ml LVLd ap2: 9.5 cm EDV(MOD-sp2): 185.3 ml EDV(sp2-el): 187.4 ml LVAs ap2: 25.1 cm2 LVLs ap2: 7.9 cm ESV(MOD-sp2): 68.9 ml ESV(sp2-el): 67.7 ml EF(MOD-sp2): 62.8 % SV(sp4-el): 65.2 ml LA dimension(2D): 5.3 cm LA A4 area: 28.7 cm2 RA A4 area: 21.0 cm2 TAPSE: 2.5 cm Time Measurements MV dec time: 0.23 sec Doppler Measurements & Calculations MV E max james: 83.1 cm/sec Lat Peak E' James: 7.5 cm/sec Med Peak E' James: 6.0 cm/sec MV A max james: 78.7 cm/sec E/E' lat: 11.1 E/E' med: 13.8 MV E/A: 1.1 Ao V2 max: 165.2 cm/sec LV V1 max: 102.7 cm/sec MV dec slope: 368.9 cm/sec2 Ao max P.9 mmHg LV V1 max P.2 mmHg Ao V2 mean: 110.4 cm/sec LV V1 mean P.6 mmHg Ao mean P.4 mmHg LV V1 mean: 76.9 cm/sec Ao V2 VTI: 33.2 cm LV V1 VTI: 24.4 cm AV (velocity ratio): 0.74 AMARIS(I,D): 2.8 cm2 AMARIS(V,D): 2.3 cm2 SV(LVOT): 92.0 ml PA V2 max: 86.4 cm/sec TR max james: 225.9 cm/sec TR max P.4 mmHg ECHO/Echo Complete Interpretation Summary Normal LV size. Left ventricular systolic function is normal. The estimated ejection fraction is 60 %. The left atrium is moderately enlarged. Pulmonary artery systolic pressure is 24 mmHg. Mean aortic valve gradient 5 mmHg. Aortic valve repair Ordering Physician: Joseline Loza Referring Physician: Goldie Kohler D.O. Performed By: Radha Silverio RDCS
== END | disposition home or self-care (01) ==
LOC: CVS 09:01
PROVIDERS: PCP Internal Medicine; Referring Provider Nurse Practitioner Gerontology; Visit Provider Nurse Practitioner Gerontology
DX: Z98.890 Other specified postprocedural states (principal); I48.0 Paroxysmal atrial fibrillation; Z86.79 Personal history of other diseases of the circulatory system; Z95.828 Presence of other vascular implants and grafts
CPT/HCPCS: 93306

== ENCOUNTER → 2023-03-06 | Outpatient (CLI) | payer OTHER, SELFPAY ==
[2021-08-23 09:25] VITALS: BMI 42.5
--- NOTE | 2023-03-06 07:56 | US_ITS ---
STUDY: ABDOMINAL ULTRASOUND - RIGHT UPPER QUADRANT; ELASTOGRAPHY REASON FOR VISIT: Male, 62 years old. Fatty infiltration of the liver. TECHNIQUE: Ultrasound evaluation of the right upper quadrant was performed with real-time and static pittman-scale imaging. Point quantification shear wave elastography was performed (Revl ) TECHNICAL QUALITY: Adequate. COMPARISON: Comparison is made with prior study dated December 26, 2021. FINDINGS: Liver: The liver is enlarged and measures 18.8 cm. There is increased echogenicity consistent with a mild degree of fatty infiltration. The bile ducts are within normal limits. There is hepatic color flow. The direction of portal flow is hepatopetal. There is no demonstrated mass lesion. Median liver stiffness measured 9 kPa. Gallbladder: The patient is status post cholecystectomy. Common Bile Duct (C.B.D.): The common bile duct measures 4.8 mm. Pancreas: There is increased echogenicity of the pancreas. There is no demonstrated pancreatic mass or cyst. Right Kidney: Normal size of the right kidney. The right kidney measures 13.17 x 5.5 cm x 6.9 cm. Normal renal cortex. The right cortex measures 1.7 cm. There is no demonstrated renal mass or cyst. There is no right hydronephrosis. US/ABD Limited w/ Elastography IMPRESSION: 1. Liver stiffness measures 9 kPa compatible with F2-F3 (Mild to moderate liver fibrosis) Metavir score. Electronically Signed: Ulisses Bowers MD at 14:55 EDT ,
== END | disposition home or self-care (01) ==
LOC: US 07:55
PROVIDERS: PCP Internal Medicine; Referring Provider Internal Medicine; Visit Provider Internal Medicine
DX: K76.0 Fatty (change of) liver, not elsewhere classified (principal)
CPT/HCPCS: 76705; 76981

== ENCOUNTER → 2023-07-16 | Outpatient (CLI) | payer MEDICARE, OTHER, BC, SELFPAY ==
[2023-06-25 10:43] VITALS: BMI 42.5
[2023-07-16 11:18] LABS: PSA,Total- Diagnostic < 0.01 ng/mL (0.0-4.0)
== END | disposition home or self-care (01) ==
LOC: LAB 09:34
PROVIDERS: PCP Internal Medicine; Referring Provider Urology; Visit Provider Urology
DX: C61 Malignant neoplasm of prostate (principal)
CPT/HCPCS: 36415; 84153

== ENCOUNTER → 2023-08-21 | Outpatient (CLI) | payer MEDICARE, OTHER, BC, SELFPAY ==
[2023-06-25 10:43] VITALS: BMI 42.5
[2023-08-21 14:36] LABS: Erythrocyte Sedimentation Rate 2 mm/hr (0-20)
[2023-08-21 14:38] LABS: Absolute Lymphocyte Count 2.22 X10^3/uL (0.83-4.51); Absolute Neutrophil Count 4.2 X10^3/uL (2.0-7.7); Basophil# 0.06 X10^3/uL; Basophil% 0.8 % (0-1); Eosinophil# 0.22 X10^3/uL; Eosinophils% 2.9 % (0-5); Hematocrit 46.1 % (40-54); Hemoglobin 15.2 g/dL (13.0-16.5); Lymphocyte # 2.22 X10^3/ul (0.83-4.51); Lymphocyte % 29.7 % (19-41); Mean Corpuscular Hgb 30.3 pg (27.0-32.0); Mean Corpuscular Volume 91.8 fL (80-94); Mean Platelet Vol. 10.3 fl (6.2-12.0); Monocyte# 0.79 X10^3/uL; Monocyte% 10.6 % (0-10); NRBC Flagged by Analyzer 0 % (0-5); Neutrophil # 4.16 X10^3/uL (2.7-7.7); Neutrophil % 55.6 % (47-70); Platelet Count 243 K/mm3 (150-450); RBC Distribution Width CV 12.4 % (11.6-14.6); RBC Distribution Width SD 41.2 fl (35.1-43.9); Red Blood Count 5.02 M/mm3 (4.6-6.2); White Blood Count 7.5 K/mm3 (4.4-11.0)
[2023-08-21 15:02] LABS: CRP < 2.90 mg/L (0.0-3.0)
== END | disposition home or self-care (01) ==
LOC: LAB 13:54
PROVIDERS: PCP Internal Medicine; Referring Provider Orthopaedic Surgery; Visit Provider Orthopaedic Surgery
DX: M25.561 Pain in right knee (principal)
CPT/HCPCS: 36415; 85025; 85652; 86140

== ENCOUNTER → 2023-10-07 | Outpatient (CLI) | payer MEDICARE, OTHER, SELFPAY ==
[2023-06-25 10:43] VITALS: BMI 42.5
--- NOTE | 2023-10-07 13:28 | STRESSREP ---
Stress Test Report Pharmacologic myocardial perfusion stress test. 63-year-old man with a history of chest pain Resting EKG demonstrates sinus rhythm with a right bundle branch block with a rate of 68 bpm. Resting blood pressure is 118/70 mmHg. 0.4 mg of regadenoson was infused per usual protocol followed by rapid intravenous saline flush injection. Continuous EKG monitoring was performed. The maximum heart rate was 82 bpm which was 52% of max impacted heart rate the maximum workload was 1 metabolic equivalent. At rest there were no ST or T wave changes noted to suggest ischemia and at peak infusion nonspecific ST changes were noted which did not meet the criteria for ischemia. No clinical angina is noted. The final blood pressure was 122/80 mmHg. Myocardial perfusion protocol. 15.0 mCi of technetium 99m sestamibi was injected at rest. 0.4 mg of regadenoson was infused per usual protocol. At peak infusion 44.8 mCi of technetium 99m sestamibi was injected stress images were obtained stress and rest images were reconstructed and compared in the short axis vertical long and horizontal long axis. Gated images were also obtained. Perfusion SPECT analysis: Review of the stress images demonstrate normal uptake of tracer noted in all areas of the myocardium. The resting images similar demonstrated normal uptake of tracer noted in all areas of the myocardium. No areas of reversibility are noted to suggest ischemia and no previous infarct is noted. Gated SPECT analysis: The gated ejection fraction is normal. Conclusion: normal pharmacologic myocardial perfusion stress test. Preserved ejection fraction.
== END | disposition home or self-care (01) ==
LOC: CVS 06:48
PROVIDERS: PCP Internal Medicine; Referring Provider Nurse Practitioner Gerontology; Visit Provider Nurse Practitioner Gerontology
DX: I48.0 Paroxysmal atrial fibrillation (principal); R94.31 Abnormal electrocardiogram [ECG] [EKG]
CPT/HCPCS: 78452; 93017; A9500; A4216; J2785

== ENCOUNTER → 2024-03-24 | Outpatient (CLI) | payer MEDICARE, OTHER, SELFPAY ==
[2023-06-25 10:43] VITALS: BMI 42.5
--- NOTE | 2024-03-24 07:58 | ECHOD_ITS ---
Reason For Study: AV and Ao Root Repair Procedure This was a 2D Doppler, Color Flow transthoracic echocardiogram. Exam performed in department. Left Ventricle Normal LV size. Mild concentric left ventricular hypertrophy. Left ventricular systolic function is normal. The left ventricular ejection fraction is 55 %. Stage 1 diastolic dysfunction. No regional wall motion abnormalities noted. Right Ventricle Normal RV size. Normal systolic function. Atria The left atrium is mildly enlarged. Normal right atrium. Mitral Valve Normal mitral valve. Tricuspid Valve Normal tricuspid valve. Aortic Valve Peak aortic valve gradient 17 mmHg. Mean aortic valve gradient 9 mmHg. Bioprosthetic aortic valve. Pulmonic Valve The pulmonic valve is not well visualized. Great Vessels Normal aortic root. The pulmonary artery is normal size. Normal inferior vena cava. Pericardium/Pleural No pericardial effusion. MMode/2D Measurements & Calculations LVIDd: 5.1 cm IVSd: 1.2 cm LVOT diam: 2.2 cm LVIDs: 3.6 cm LVPWd: 1.2 cm LVOT area: 3.8 cm2 RVDd: 4.0 cm FS: 30.1 % Ao root diam: 3.9 cm LAV(MOD-bp): 64.9 ml LVAd ap4: 33.6 cm2 LAV(MOD-bp) Indexed: 26.7 ml/m2 LVLd ap4: 9.4 cm LAV(MOD-sp2): 48.4 ml EDV(MOD-sp4): 99.0 ml LAV(MOD-sp4): 81.8 ml EDV(sp4-el): 102.2 ml LVAs ap4: 18.1 cm2 LVLs ap4: 7.8 cm ESV(MOD-sp4): 36.9 ml ESV(sp4-el): 35.4 ml EF(MOD-sp4): 62.7 % EF(sp4-el): 65.4 % LVAd ap2: 36.0 cm2 SV(MOD-sp4): 62.1 ml SV(MOD-sp2): 73.1 ml LVLd ap2: 8.9 cm EDV(MOD-sp2): 122.9 ml EDV(sp2-el): 123.4 ml LVAs ap2: 21.0 cm2 LVLs ap2: 8.1 cm ESV(MOD-sp2): 49.8 ml ESV(sp2-el): 46.1 ml EF(MOD-sp2): 59.5 % SV(sp4-el): 66.8 ml LA dimension(2D): 4.8 cm LA A4 area: 24.3 cm2 RA A4 area: 18.8 cm2 TAPSE: 2.0 cm Time Measurements MV dec time: 0.24 sec Doppler Measurements & Calculations MV E max james: 77.4 cm/sec Lat Peak E' James: 7.9 cm/sec Med Peak E' James: 7.6 cm/sec MV A max james: 91.7 cm/sec E/E' lat: 9.8 E/E' med: 10.2 MV E/A: 0.84 Ao V2 max: 209.0 cm/sec LV V1 max: 122.3 cm/sec MV dec slope: 321.6 cm/sec2 Ao max P.5 mmHg LV V1 max P.0 mmHg Ao V2 mean: 138.5 cm/sec LV V1 mean P.0 mmHg Ao mean P.7 mmHg LV V1 mean: 82.6 cm/sec Ao V2 VTI: 40.4 cm LV V1 VTI: 24.7 cm AV (velocity ratio): 0.61 AMARIS(I,D): 2.3 cm2 AMARIS(V,D): 2.2 cm2 SV(LVOT): 94.1 ml PA V2 max: 89.8 cm/sec ECHO/Echo Complete Interpretation Summary Normal LV size. Left ventricular systolic function is normal. The left ventricular ejection fraction is 55 %. Mild concentric left ventricular hypertrophy. Stage 1 diastolic dysfunction. The left atrium is mildly enlarged. Bioprosthetic aortic valve. Ordering Physician: Joseline Loza Referring Physician: Goldie Kohler D.O. Performed By: Radha Silverio RDCS
== END | disposition home or self-care (01) ==
LOC: CVS 07:57
PROVIDERS: PCP Internal Medicine; Referring Provider Nurse Practitioner Gerontology; Visit Provider Nurse Practitioner Gerontology
DX: Z98.890 Other specified postprocedural states (principal); Z86.79 Personal history of other diseases of the circulatory system; Z95.828 Presence of other vascular implants and grafts
CPT/HCPCS: 93306

== ENCOUNTER → 2024-04-30 | Outpatient (CLI) | payer MEDICARE, OTHER, SELFPAY ==
[2023-06-25 10:43] VITALS: BMI 42.5
--- NOTE | 2024-04-30 08:20 | US_ITS ---
STUDY: ABDOMINAL ULTRASOUND - RIGHT UPPER QUADRANT; ELASTOGRAPHY REASON FOR VISIT: Male, 64 years old. Fatty infiltration of the liver. TECHNIQUE: Ultrasound evaluation of the right upper quadrant was performed with real-time and static pittman-scale imaging. Point quantification shear wave elastography was performed ([employer]). TECHNICAL QUALITY: Adequate. COMPARISON: Comparison is made with prior study dated March 06, 2023. FINDINGS: Liver: The liver is enlarged at measures 21 cm. There is increased echogenicity consistent with fatty infiltration. The bile ducts are within normal limits. There is hepatic color flow. The direction of portal flow is hepatopetal. There is no demonstrated mass lesion. Median liver stiffness measured 6.7 kPa. Gallbladder: The patient is status post cholecystectomy. Common Bile Duct (C.B.D.): The common bile duct measures 6 mm. Pancreas: There is normal echogenicity of the visualized pancreas. There is no demonstrated pancreatic mass or cyst. Right Kidney: Normal size of the right kidney. The right kidney measures 13.3 cm x 5.4 cm x 5.4 cm. Normal renal cortex. The right cortex measures 1.2 cm. There is a 4 cm x 3 cm x 3.4 cm right renal cyst. There is no right hydronephrosis. US/ABD Limited w/ Elastography IMPRESSION: 1. Liver stiffness measures 6.7 kPa compatible with F2-F3 (Mild to moderate liver fibrosis) Metavir score. Electronically Signed: Ulisses Bowers MD at 15:02 EDT ,
== END | disposition home or self-care (01) ==
LOC: US 08:18
PROVIDERS: PCP Internal Medicine; Referring Provider Internal Medicine; Visit Provider Internal Medicine
DX: K76.0 Fatty (change of) liver, not elsewhere classified (principal)
CPT/HCPCS: 76705; 76981

== ENCOUNTER → 2024-07-15 | Outpatient (CLI) | payer MEDICARE, OTHER, SELFPAY ==
[2023-06-25 10:43] VITALS: BMI 42.5
[2024-07-15 09:47] LABS: PSA,Total- Diagnostic < 0.01 ng/mL (0.0-4.0)
== END | disposition home or self-care (01) ==
LOC: LAB 07:40
PROVIDERS: PCP Internal Medicine; Referring Provider Nurse Practitioner; Visit Provider Nurse Practitioner
DX: C61 Malignant neoplasm of prostate (principal)
CPT/HCPCS: 36415; 84153

== ENCOUNTER → 2025-04-08 | Outpatient (CLI) | payer MEDICARE, OTHER, SELFPAY ==
[2023-06-25 10:43] VITALS: BMI 42.5
--- NOTE | 2025-04-08 08:24 | US_ITS ---
PROCEDURE: ABD LIMITED W/ ELASTOGRAPHY REASON FOR EXAM: ABD LIMITED W/ ELASTOG COMPARISON: None. April 30, 2024, March 06, 2023, January 21, 2022 TECHNIQUE: Right upper quadrant abdominal ultrasound. Tax [employer]i ElastQ Imaging shear wave elastography for non-invasive assessment of liver tissue stiffness. Tax [employer]i EPIQ Elite. FINDINGS: Elastography: EQI Med: 10.3 kPa. On prior 6.7 kPa EQI Med James: 1.84 m/s IQR/Med: 16.7 %* Liver: Liver is 19.7 cm. Echotexture is increased with loss of periportal echoes and decreased acoustic penetration. Portal vein is patent and hepatopetal on color and spectral Doppler. Gallbladder: Cholecystectomy Common bile duct: Normal measuring 6.2 mm. Pancreas: Normal Kidneys: The right kidney measures 13.3 x 6.3 x 5.7 cm. No collecting system dilation, calculus or solid mass. Simple cyst at the lower pole is 4.2 x 3.6 x 3.6 cm Peritoneal Findings: No ascites US/ABD Limited w/ Elastography IMPRESSION: 1. Diffuse hepatocellular disease. Consider fatty infiltration among other ca uses. No mass or ascites seen. 2. Cholecystectomy 3. Metavir score F2-F3. This is slightly worse than prior exam * If the IQR/Med is >30%, the variance in the measurements is a large and the a ccuracy of the measurement may be in question. Reading Location: [id number]
== END | disposition home or self-care (01) ==
LOC: US 08:21
PROVIDERS: PCP Internal Medicine; Referring Provider Internal Medicine; Visit Provider Internal Medicine
DX: K76.0 Fatty (change of) liver, not elsewhere classified (principal)
CPT/HCPCS: 76705; 76981

== ENCOUNTER → 2025-07-20 | Outpatient (CLI) | payer MEDICARE, OTHER, SELFPAY ==
[2023-06-25 10:43] VITALS: BMI 42.5
[2025-07-20 10:23] LABS: Hematocrit 45.1 % (40-54); Hemoglobin 15.3 g/dL (13.0-16.5); Immature Granulocytes Count 0.040 X10^3/uL (0.0-0.0); Mean Corp Hgb Conc 33.9 g/dL (32-36); Mean Corpuscular Volume 90.4 fL (80-94); Mean Platelet Vol. 9.9 fl (6.2-12.0); NRBC Flagged by Analyzer 0 % (0-5); Platelet Count 237 K/mm3 (150-450); RBC Distribution Width CV 12.5 % (11.6-14.6); RBC Distribution Width SD 41.0 fl (35.1-43.9); Red Blood Count 4.99 M/mm3 (4.6-6.2); White Blood Count 6.2 K/mm3 (4.4-11.0)
[2025-07-20 11:08] LABS: Creatinine, Urine (random) 217.00 mg/dL (39.00-259.00); Microalbumin,Random Urine 21.4 mg/L (<20 mg/L)
[2025-07-20 11:30] LABS: AST(SGOT) 31 U/L (<=37); Alanine Aminotransfer ALT/SGPT 43 U/L (<=46); Albumin, Serum 4.2 g/dL (3.4-4.8); Alkaline Phosphatase 61 U/L (40-129); Anion Gap 9 (5-15); BUN 23 mg/dL (4-19); BUN/Creat Ratio 24.9 RATIO (10-20); Calcium,Total 9.2 mg/dL (7.6-11.0); Carbon Dioxide 26.3 mmol/L (21.0-32.0); Chloride 105 mmol/L (98-108); Cholesterol 120 mg/dL (<=200); Globulin 2.8 g/dL (2.2-4.2); Glucose 121 mg/dL (70-99); Low Density Lipoprotein Calc. 78 mg/dL; Potassium 4.7 mmol/L (3.3-5.1); Triglycerides 48 mg/dL; Very Low Density Lipoprotein 10 mg/dL (5-40); cholesterol:hdl ratio screen 3.93
[2025-07-20 11:40] LABS: FOLATES,SERUM (FOLIC ACID) 16.90 ng/mL (4.60-34.80)
[2025-07-20 12:03] LABS: Iron 78 ug/dL (65-175)
[2025-07-20 12:09] LABS: PSA,Total- Diagnostic < 0.02 ng/mL (0.00-4.00); Vitamin B12 782 pg/mL (180-914); Vitamin D,25 Hydroxy 37.2 ng/mL (30-100)
[2025-07-20 12:17] LABS: Color, Urine Yellow (Yellow); Glucose, Dipstick Normal (Normal); Ketone-Dipstick 5 mg/dl (Negative); Leukocyte Esterase-Dipstick Negative /ul (Negative); Nitrite-Dipstick Negative (Negative); Occult Blood-Urine 10 /ul (Negative); Protein-Dipstick 30 mg/dl (Negative); Specific Gravity, Urine 1.025 (1.002-1.030); Urine Bilirubin Dipstick Negative (Negative)
[2025-07-20 12:30] LABS: Mucous, Urine 1+ /hpf (<or=2+); Red Blood Cells-Urine 0-5 SEEN /hpf (0-5); Squamous Epithelial Cells - UA 0-5 SEEN /hpf (0-5)
== END | disposition home or self-care (01) ==
LOC: LAB 09:20
PROVIDERS: PCP Internal Medicine; Referring Provider Internal Medicine; Visit Provider Urology
DX: C61 Malignant neoplasm of prostate (principal); R73.09 Other abnormal glucose; R53.83 Other fatigue; E78.2 Mixed hyperlipidemia; R31.9 Hematuria, unspecified
CPT/HCPCS: 36415; 80053; 80061; 81001; 82043; 82306; 82570; 82607; 82746; 83540; 84153; 84443; 85025; 87086; 87088